=== PATIENT | female | born 1985 | race Caucasian/White ===

== ENCOUNTER 2023-06-19 10:32 | Emergency (ER) | payer OTHER, SELFPAY ==
[2023-06-19 10:42] VITALS: BP 144/115; PULSE 76; RESP 16; TEMP 36.5; O2SAT 96; BMI 24.0
--- NOTE | 2023-06-19 10:52 | ED.NAVMDI1 ---
HPI - Nausea/Vomiting/Diarrhea General Chief complaint: Nausea/Vomiting/Diarrhea Stated complaint: VOMITING FEVER Time Seen by Provider: 06/19/23 10:47 History of Present Illness HPI Narrative: 37-year-old female presents for nausea and vomiting. She's been sick for about nine days. She was seen at another hospital as ago. She continues to feel ill. She has an ongoing breast skin lesion that she's had for years and that's unchanged. She seen a cancer specialist about it and she doesn't have cancer. She doesn't believe it's related. Her is being seen for a Covid test. She states she is going to get fired from her job if she doesn't do something about this. Related Data Home Medications Medication Instructions Recorded Confirmed mupirocin calcium 2 % topical cream 1 applic topical TID 06/19/23 06/19/23 ondansetron 4 mg disintegrating 4 mg PO Q6H PRN nausea and vomiting 06/19/23 06/19/23 tablet silver sulfadiazine 1 % topical 1 applic topical DAILY 06/19/23 06/19/23 cream Previous Rx's Medication Instructions Recorded dicyclomine 10 mg capsule 10 mg PO QID PRN abdominal pain 06/19/23 #20 caps ondansetron HCl 4 mg tablet 4 mg PO Q6H PRN nausea and 06/19/23 vomiting #20 tabs Allergies Allergy/AdvReac Type Severity Reaction Status Date / Time amoxicillin Allergy Severe Hives Verified 06/19/23 10:57 ciprofloxacin Allergy Severe Hives Verified 06/19/23 10:57 doxycycline Allergy Severe Hives Verified 06/19/23 10:57 Penicillins Allergy Severe Anaphylaxis Verified 06/19/23 10:57 sulfamethoxazole Allergy Severe Hives Verified 06/19/23 10:57 [From Bactrim] tramadol Allergy Severe Hives Verified 06/19/23 10:57 trimethoprim [From Bactrim] Allergy Severe Hives Verified 06/19/23 10:57 meperidine [From Demerol] AdvReac Severe Seizure Verified 06/19/23 10:57 Review of Systems ROS Narrative A ten point review of systems is negative except as noted above. PFSH PFSH Social History Smoking status: Never smoker Exam Narrative Exam Narrative: Nurses note and vital signs reviewed and patient is not hypoxic. General: The patient appears well and in no apparent distress. Patient is resting comfortably on cart. Skin: Warm, dry, no pallor noted. There is no rash noted. Head: Normocephalic, atraumatic Eye: Normal conjunctiva, no drainage Ears, Nose, Mouth, and Throat: oral mucosa is moist. Nares patent. Cardiovascular: Regular Rate and Rhythm Respiratory: Patient is in no distress, no accessory muscle use, lungs are clear to auscultation, no wheezing, rales or rhonchi Back: non-tender GI: soft and nontender Musculoskeletal: The patient has no evidence of calf tenderness, no pitting edema, symmetrical pulses noted bilaterally Neurological: A&O, normal speech Psychiatric: Cooperative Constitutional Vital Signs, click to edit/add: Last Vital Signs Temp 97.7 F 06/19/23 10:42 Pulse 76 06/19/23 10:42 Resp 16 06/19/23 10:42 BP 143/96 H 06/19/23 12:10 Pulse Ox 96 06/19/23 10:42 O2 Del Method Room Air 06/19/23 10:42 Course Vital Signs Vital signs: Vital Signs Temperature 97.7 F 06/19/23 10:42 Pulse Rate 76 06/19/23 10:42 Respiratory Rate 16 06/19/23 10:42 Blood Pressure 144/115 H 06/19/23 10:42 Pulse Oximetry 96 06/19/23 10:42 Oxygen Delivery Method Room Air 06/19/23 10:42 Temperature 97.7 F 06/19/23 10:42 Pulse Rate 76 06/19/23 10:42 Respiratory Rate 16 06/19/23 10:42 Blood Pressure 143/96 H 06/19/23 12:10 Pulse Oximetry 96 06/19/23 10:42 Oxygen Delivery Method Room Air 06/19/23 10:42 MDM - Nausea/Vomiting/Diarrhea MDM Narrative Medical decision making narrative: blood work is normal and her Covid is negative. She was given IV fluids and is prescribed Bentyl and Zofran. She'll follow-up with her doctor if symptoms persist. Work note given as well. Treatment diagnosis and follow-up were discussed with the patient. Differential Diagnosis Differential diagnosis: Likely food poisoning, gastroenteritis, dehydration and other (viral illness) Lab Data Attestation: I reviewed the patient's lab results. Labs: Lab Results 06/19/23 06/19/23 Range/Units 11:07 11:09 WBC 8.1 (4.0-11.0) 10^3/uL RBC 4.60 (4.20-5.40) 10^6/uL Hgb 13.9 (12.0-16.0) g/dL Hct 40.5 (36.0-48.0) % MCV 88.0 (81.0-99.0) fL MCH 30.2 (26.7-34.0) pg MCHC 34.3 (29.9-35.2) g/dL RDW 12.3 (11.0-15.0) % Plt Count 395 (150-450) 10^3/uL MPV 9.0 L (9.5-13.5) fL Neut % (Auto) 77.3 H (43.0-75.0) % Lymph % (Auto) 15.0 L (20.5-60.0) % [place] % (Auto) 6.6 (1.7-12.0) % Eos % (Auto) 0.7 L (0.9-7.0) % Baso % (Auto) 0.2 (0.2-2.0) % Neut # (Auto) 6.3 (1.4-6.5) 10^3/uL Lymph # (Auto) 1.2 (1.2-3.8) 10^3/uL [place] # (Auto) 0.5 (0.3-0.8) 10^3/uL Eos # (Auto) 0.1 (0.0-0.7) 10^3/uL Baso # (Auto) 0.0 (0.0-0.1) 10^3/uL Abs Immat Gran (auto) 0.02 (0.00-0.03) 10^3/uL Imm/Tot Granulo (auto) 0.2 (0.0-0.5) % Sodium 133 L (136-145) mmol/L Potassium 3.2 L (3.5-5.1) mmol/L Chloride 97 L (98-107) mmol/L Carbon Dioxide 28.2 (21.0-32.0) mmol/L Anion Gap 11.0 BUN 9.0 (7.0-18.0) mg/dL Creatinine 0.74 (0.55-1.02) mg/dL Est GFR ( Amer) >60 (>=60) Est GFR (Non-Af Amer) >60 (>=60) BUN/Creatinine Ratio 12.2 Glucose 113 H (74-106) mg/dL Calcium 9.6 (8.5-10.1) mg/dL SARS-CoV-2 (PCR) Negative (NEGATIVE) Discharge Plan Discharge Chief Complaint: Nausea/Vomiting/Diarrhea Clinical Impression: Viral illness Patient Disposition: Home, Self-Care Time of Disposition Decision: 12:26 Condition: Good Mode of Transportation: Private Vehicle Prescriptions / Home Meds: New ondansetron HCl 4 mg tablet 4 mg PO Q6H PRN (Reason: nausea and vomiting) Qty: 20 0RF dicyclomine 10 mg capsule 10 mg PO QID PRN (Reason: abdominal pain) Qty: 20 0RF No Action mupirocin calcium 2 % cream 1 applic topical TID ondansetron 4 mg tablet,disintegrating 4 mg PO Q6H PRN (Reason: nausea and vomiting) silver sulfadiazine 1 % cream 1 applic topical DAILY Instructions: Viral Syndrome (ED) Stand Alone Forms: Portal Instructions Referrals: [facility] [Primary Care Provider] - 1 week
[2023-06-19] MEDS: 0.9 % SODIUM CHLORIDE 1,000 ML 1000 ML IV (11:16)
[2023-06-19] MEDS: ONDANSETRON PF 4 MG/2 ML VIAL IV (11:16)
[2023-06-19 11:17] LABS: Basophils Percent Auto 0.2 % (0.2-2.0); Eosinophils Absolute Auto 0.1 10^3/uL (0.0-0.7); Eosinophils Percent Auto 0.7 % (0.9-7.0); Hematocrit 40.5 % (36.0-48.0); Hemoglobin 13.9 g/dL (12.0-16.0); Immature Granulocytes Abs Auto 0.02 10^3/uL (0.00-0.03); Immature Granulocytes Pct Auto 0.2 % (0.0-0.5); Lymphocytes Absolute Auto 1.2 10^3/uL (1.2-3.8); Mean Corpuscular HGB Conc 34.3 g/dL (29.9-35.2); Mean Corpuscular Hemoglobin 30.2 pg (26.7-34.0); Monocytes Absolute Auto 0.5 10^3/uL (0.3-0.8); Monocytes Percent Auto 6.6 % (1.7-12.0); Neutrophils Absolute Auto 6.3 10^3/uL (1.4-6.5); Neutrophils Percent Auto 77.3 % (43.0-75.0); Platelet Count 395 10^3/uL (150-450); Red Cell Distribution Width 12.3 % (11.0-15.0); White Blood Count 8.1 10^3/uL (4.0-11.0)
[2023-06-19 11:27] LABS: BUN Creatinine Ratio 12.2; Calcium 9.6 mg/dL (8.5-10.1); Carbon Dioxide 28.2 mmol/L (21.0-32.0); Chloride 97 mmol/L (98-107); Estimated GFR (African America >60 (>=60); Estimated GFR (Non-African Ame >60 (>=60); Glucose 113 mg/dL (74-106); Potassium 3.2 mmol/L (3.5-5.1); Sodium 133 mmol/L (136-145)
[2023-06-19 11:28] LABS: SARS-CoV-2 Ag NEGATIVE (NEGATIVE)
[2023-06-19 12:10] VITALS: BP 143/96
[2023-06-19 16:05] LABS: SARS-CoV-2 NAA NOT DETECTED (NOT DETECTE)
== END 2023-06-19 12:37 | disposition home or self-care (01) ==
PROVIDERS: Emergency Provider Emergency Medicine
DX: B34.9 Viral infection, unspecified (principal); Z79.899 Other long term (current) drug therapy; Z20.822 Contact with and (suspected) exposure to COVID-19
CPT/HCPCS: 36415; 80048; 85025; 87635; 87811; 96361; 96374; 99284; U0003

== ENCOUNTER 2023-09-09 21:18 | Emergency (ER) | payer OTHER, SELFPAY ==
[2023-09-09 21:23] VITALS: BP 123/95; PULSE 55; RESP 18; TEMP 37.2; O2SAT 96
--- NOTE | 2023-09-09 21:32 | ED_ITS ---
HPI - Nausea/Vomiting/Diarrhea General Chief complaint: Nausea/Vomiting/Diarrhea Stated complaint: VOMITING Time Seen by Provider: 09/09/23 21:29 Source: patient Mode of arrival: walk-in Limitations: no limitations History of Present Illness HPI Narrative: presents complaining of recurrent vomiting for past 3 days. Occ diarrhea. Denies hematemesis. has abdominal pain when vomiting. Denies past abdominal surgery. Past tubal ligation. 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 states she has new lesions that are sore Related Data Allergies Allergy/AdvReac Type Severity Reaction Status Date / Time amoxicillin Allergy Severe Hives Verified 09/09/23 21:26 ciprofloxacin Allergy Severe Hives Verified 09/09/23 21:26 doxycycline Allergy Severe Hives Verified 09/09/23 21:26 Penicillins Allergy Severe Anaphylaxis Verified 09/09/23 21:26 sulfamethoxazole Allergy Severe Hives Verified 09/09/23 21:26 [From Bactrim] tramadol Allergy Severe Hives Verified 09/09/23 21:26 trimethoprim [From Bactrim] Allergy Severe Hives Verified 09/09/23 21:26 meperidine [From Demerol] AdvReac Severe Seizure Verified 09/09/23 21:26 Review of Systems ROS Status of ROS 10 or more systems reviewed and unremark able except as noted in history and below [facility] Social History Smoking status: Never smoker Exam Constitutional Vital Signs, click to edit/add: Last Vital Signs Temp 97.6 F 09/10/23 00:11 Pulse 65 09/10/23 00:11 Resp 16 09/10/23 00:11 BP 136/75 09/10/23 00:11 Pulse Ox 100 09/10/23 00:11 O2 Del Method Room Air 09/09/23 21:23 Common normals: no apparent distress, average body habitus, oriented x3, no limitations, healthy appearing, alert and well nourished Eye Common normals: EOMs intact bilaterally and conjunctivae normal Respiratory Common normals: normal respiratory effort, no retractions, no use of accessory muscles and clear to auscultation bilaterally Cardio Common normals: regular rate, regular rhythm, S1 normal heart sound and S2 normal heart sound GI Common normals: Normal to inspection, nondistended, normoactive bowel sounds present, soft to palpation and non-tender Other: pubic hair examined with nursing present. has 2 small superficial lesions that are firm and mildly tender. 1.5cm in size Extremity Common normals: normal to inspection and full ROM Neuro Common normals: oriented x3, CN's II-XII intact bilaterally, moves all extremities, no focal motor deficits and no sensory deficits noted Psych Appearance: grossly normal Course Vital Signs Vital signs: Vital Signs Temperature 99.0 F 09/09/23 21:23 Pulse Rate 55 L 09/09/23 21:23 Respiratory Rate 18 09/09/23 21:23 Blood Pressure 123/95 H 09/09/23 21:23 Pulse Oximetry 96 09/09/23 21:23 Oxygen Delivery Method Room Air 09/09/23 21:23 Temperature 97.6 F 09/10/23 00:11 Pulse Rate 65 09/10/23 00:11 Respiratory Rate 16 09/10/23 00:11 Blood Pressure 136/75 09/10/23 00:11 Pulse Oximetry 100 09/10/23 00:11 Oxygen Delivery Method Room Air 09/09/23 21:23 MDM - Nausea/Vomiting/Diarrhea MDM Narrative Medical decision making narrative: patient presents with gastroenteritis manifested mainly by recurrent vomiting and occ diarrhea. Also found to have mild folliculitis focal lesions of her pubic hair. UA with findings supporting dehydration. IV fluids administered along with zofran and nausea controlled. Patient had to leave suddenly because one of her kids at home became ill. She was discharged to follow up with her doctor Lab Data Labs: Lab Results 09/09/23 09/09/23 Range/Units 21:49 23:27 WBC 10.0 (4.0-11.0) 10^3/uL RBC 4.08 L (4.20-5.40) 10^6/uL Hgb 12.6 (12.0-16.0) g/dL Hct 37.3 (36.0-48.0) % MCV 91.4 (81.0-99.0) fL MCH 30.9 (26.7-34.0) pg MCHC 33.8 (29.9-35.2) g/dL RDW 12.4 (11.0-15.0) % Plt Count 325 (150-450) 10^3/uL MPV 9.4 L (9.5-13.5) fL Neut % (Auto) 80.1 H (43.0-75.0) % Lymph % (Auto) 11.6 L (20.5-60.0) % [place] % (Auto) 7.8 (1.7-12.0) % Eos % (Auto) 0.0 L (0.9-7.0) % Baso % (Auto) 0.2 (0.2-2.0) % Neut # (Auto) 8.0 H (1.4-6.5) 10^3/uL Lymph # (Auto) 1.2 (1.2-3.8) 10^3/uL [place] # (Auto) 0.8 (0.3-0.8) 10^3/uL Eos # (Auto) 0.0 (0.0-0.7) 10^3/uL Baso # (Auto) 0.0 (0.0-0.1) 10^3/uL Abs Immat Gran (auto) 0.03 (0.00-0.03) 10^3/uL Imm/Tot Granulo (auto) 0.3 (0.0-0.5) % Sodium 139 (136-145) mmol/L Potassium 3.5 (3.5-5.1) mmol/L Chloride 102 (98-107) mmol/L Carbon Dioxide 28.4 (21.0-32.0) mmol/L Anion Gap 12.1 BUN 13.0 (7.0-18.0) mg/dL Creatinine 0.80 (0.55-1.02) mg/dL Est GFR ( Amer) >60 (>=60) Est GFR (Non-Af Amer) >60 (>=60) BUN/Creatinine Ratio 16.2 Glucose 129 H (74-106) mg/dL Lactate 1.5 (0.4-2.0) mmol/L Calcium 9.5 (8.5-10.1) mg/dL Total Bilirubin 1.8 H (0.2-1.0) mg/dL AST 8 L (15-37) U/L ALT 17 (14-59) U/L Alkaline Phosphatase 75 (46-116) U/L Total Protein 8.4 H (6.4-8.2) g/dL Albumin 4.1 (3.4-5.0) g/dL Globulin 4.3 g/dL Albumin/Globulin Ratio 1.0 Urine Color Yellow (YELLOW) Urine Clarity Clear (CLEAR) Urine pH 6.0 (5.0-9.0) Ur Specific [place] >=1.030 A (1.005-1.025) Urine Protein 30 A (NEG/TRACE) mg/dL Urine Glucose (UA) Negative (NEGATIVE) mg/dL Urine Ketones 15 A (NEGATIVE) mg/dL Urine Occult Blood Negative (NEGATIVE) Urine Nitrite Negative (NEGATIVE) Urine Bilirubin Negative (NEGATIVE) Urine Urobilinogen 1.0 (0.2-1.0) EU/dL Ur Leukocyte Esterase Negative (NEGATIVE) Urine RBC 0-2 (0-2) #/HPF Urine WBC 2-5 A (NONE SEEN) #/HPF Ur Squamous Epith Cells Few A (NONE/RARE) #/LPF Urine Crystals None seen (None Seen) #/HPF Urine Bacteria Large A (NONE SEEN) #/HPF Urine Casts None seen (NONE SEEN) #/LPF Urine Mucus Large A (NONE SEEN) Ur Culture Indicated? Yes Discharge Plan Discharge Chief Complaint: Nausea/Vomiting/Diarrhea Clinical Impression: Folliculitis, Gastroenteritis Patient Disposition: Home, Self-Care Instructions: Gastroenteritis (DC), Folliculitis (ED) Stand Alone Forms: Portal Instructions Referrals: [facility] [Primary Care Provider] - 1 week Discharge Date/Time: 09/10/23 00:12
[2023-09-09] MEDS: 0.9 % SODIUM CHLORIDE 1,000 ML 999 ML IV ×2 (21:55→23:18)
[2023-09-09] MEDS: ONDANSETRON PF 4 MG/2 ML VIAL IV (21:55)
[2023-09-09 22:03] LABS: Basophils Percent Auto 0.2 % (0.2-2.0); Hematocrit 37.3 % (36.0-48.0); Hemoglobin 12.6 g/dL (12.0-16.0); Immature Granulocytes Abs Auto 0.03 10^3/uL (0.00-0.03); Immature Granulocytes Pct Auto 0.3 % (0.0-0.5); Lymphocytes Absolute Auto 1.2 10^3/uL (1.2-3.8); Lymphocytes Percent Auto 11.6 % (20.5-60.0); Mean Corpuscular HGB Conc 33.8 g/dL (29.9-35.2); Mean Corpuscular Hemoglobin 30.9 pg (26.7-34.0); Mean Corpuscular Volume 91.4 fL (81.0-99.0); Mean Platelet Volume 9.4 fL (9.5-13.5); Monocytes Absolute Auto 0.8 10^3/uL (0.3-0.8); Monocytes Percent Auto 7.8 % (1.7-12.0); Neutrophils Percent Auto 80.1 % (43.0-75.0); Platelet Count 325 10^3/uL (150-450); Red Blood Count 4.08 10^6/uL (4.20-5.40); Red Cell Distribution Width 12.4 % (11.0-15.0)
[2023-09-09 22:20] LABS: Lactate/Lactic Acid 1.5 mmol/L (0.4-2.0)
[2023-09-09 22:27] LABS: Alanine Aminotransferase 17 U/L (14-59); Albumin Level 4.1 g/dL (3.4-5.0); Alkaline Phosphatase 75 U/L (46-116); Anion Gap 12.1; Aspartate Amino Transferase 8 U/L (15-37); BUN Creatinine Ratio 16.2; Bilirubin Total 1.8 mg/dL (0.2-1.0); Calcium 9.5 mg/dL (8.5-10.1); Carbon Dioxide 28.4 mmol/L (21.0-32.0); Chloride 102 mmol/L (98-107); Estimated GFR (African America >60 (>=60); Estimated GFR (Non-African Ame >60 (>=60); Globulin 4.3 g/dL; Glucose 129 mg/dL (74-106); Potassium 3.5 mmol/L (3.5-5.1); Sodium 139 mmol/L (136-145); Total Protein 8.4 g/dL (6.4-8.2)
[2023-09-09 22:38] VITALS: PULSE 45; RESP 18; O2SAT 100
[2023-09-09 22:41] VITALS: BP 110/68
[2023-09-09 23:16] VITALS: PULSE 73; O2SAT 99
[2023-09-09 23:37] LABS: Bilirubin Urine NEGATIVE (NEGATIVE); Blood Urine NEGATIVE (NEGATIVE); Clarity Urine CLEAR (CLEAR); Color Urine YELLOW (YELLOW); Glucose Urine UA NEGATIVE (NEGATIVE); Ketones Urine 15 mg/dL (NEGATIVE); Leukocyte Esterase Urine NEGATIVE (NEGATIVE); Nitrite Urine NEGATIVE (NEGATIVE); Protein Urine 30 mg/dL (NEG/TRACE); Specific Gravity Urine >=1.030 (1.005-1.025)
[2023-09-09 23:38] LABS: Urine Microscopic Indicated YES
[2023-09-09 23:43] LABS: Bacteria Urine LARGE #/HPF (NONE SEEN); Cast Seen? NONE SEEN #/LPF (NONE SEEN); Crystals Seen? None Seen #/HPF (None Seen); Mucus Urine LARGE (NONE SEEN); RBC Urine 0-2 #/HPF (0-2); Squamous Epithelial Cell Urine FEW #/LPF (NONE/RARE); Urine Culture Indicated YES
[2023-09-09] MEDS: KETOROLAC TROMETHAMINE 30 MG/ML VIAL IVP (23:48)
[2023-09-10 00:11] VITALS: BP 136/75; PULSE 65; RESP 16; TEMP 36.4; O2SAT 100
== END 2023-09-10 00:12 | disposition home or self-care (01) ==
PROVIDERS: Emergency Provider Internal Medicine
DX: K52.9 Noninfective gastroenteritis and colitis, unspecified (principal); L73.9 Follicular disorder, unspecified
CPT/HCPCS: 36415; 80053; 81001; 83605; 85025; 87086; 87150; 87186; 96361; 96374; 96375; 99284

== ENCOUNTER 2023-09-24 21:32 | Emergency (ER) | payer OTHER, SELFPAY ==
[2023-09-24 21:35] VITALS: BP 143/87; PULSE 75; RESP 18; TEMP 36.8; O2SAT 95; BMI 25.8
--- OUTSIDE RECORDS SUMMARY | 2023-09-24 21:41 | XMS_ITS | CCD ---
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 Tab-Dis) 1 Tablets By Mouth every 8 hours as needed Nausea/Vomiting. Refills: 0. PATIENT EDUCATION INFORMATION: Instructions: Cellulitis, Adult Follow up: With: Address: When: Ashish Hawley In 3 days 06/30/2023 DIAGNOSIS: Cellulitis of breast; Ulcer of skin of breast Normal [facility] ED Note-Physicianon 06-27-20 ED Note-Physician Basic Information Time Seen: Kristie Saeed M.D. 06/27/2023 10:14 Chief Complaint Patients with infection to right breast. undectable bacertia and needs to go to ER . Drainage noted per patient. pt saw breast surg at last friday History of Present Illness 37-year-old female comes to the ED for evaluation of a breast wound. She states she had recurrent breast infection for years. She has been seen by multiple physicians. She states over the last few days she has had increased pain and drainage at the site concern for acute infection. No fever, chills, nausea, vomiting. Review of Systems A 10 point review of systems is negative except as noted above. Medical and Surgical History: Reviewed and noted Social history: Lives at home Tobacco: Denies Physical Exam Vitals & Measurements T: 36.4 ?C(Oral) HR: 63(Peripheral) RR: 16 BP: 123/80 SpO2: 98% HT: 162 cm WT: 77.5 kg BMI: 29.53 Nurses notes and vital signs reviewed and patient is not hypoxic. General: The patient appears well, resting comfortably. Skin: Warm, dry. Head: Atraumatic. Neck: No JVD. Eye: Normal conjunctiva. Ears, Nose, Mouth, and Throat: Moist mucous membranes. Cardiovascular: Strong distal pulses. Chest wall: Exam performed with female nurse, Chantal, at bedside. There is an ulcerated wound to the right of the nipple of the right breast. The nipple itself appears to be inverted as well which patient states is chronic. There is malodorous drainage without fluctuance or induration. No large area of erythema. Respiratory: Respirations are nonlabored. Back: Normal range of motion. Musculoskeletal: Normal ROM with no gross deformity. Gastrointestinal: Urological: Neurological: Awake and alert. No focal deficits. Follows commands. Psychiatric: Cooperative. Medical Decision Making The patient appears to have acute infection of chronic wound to the right breast. She states that she has been seen by multiple physicians, but from what I can gather she is poor with follow-up interaction. Explained to her that she needs to have this managed appropriately by 1 surgeon. She has seen local surgeon Dr. Hawley, in the past and is given his information for follow-up. Regarding the acute infection today she is placed on a course of clindamycin. Patient was encouraged to return to the ED if symptoms worsen or change. Assessment/Plan Cellulitis of breast (N61.0: Mastitis without abscess) Ulcer of skin of breast (L98.499: Non-pressure chronic ulcer of skin of other sites with unspecified severity) Orders: clindamycin, 300 mg = 2 cap(s), Oral, QID, X 10 day(s), # 80 cap(s), Refills(s) 0, Pharmacy: [id number], 162, cm, 06/27/23 10:15:00 EDT, Height/Length Dosing, 77.5, kg, 06/27/23 10:15:00 EDT, Weight Dosing Disposition Plan Patient Discharge Condition Disposition: Discharged home Condition: Improved and stable Counseled: Patient and/or family were counseled to workup, results, treatment plan and follow-up recommendations Discharge Prescription List Prescriptions clindamycin 150 mg Cap, 300 mg= 2 cap(s), Oral, QID Follow-up With When Contact Information Ashish Hawley In 3 days 06/30/2023 EDT Additional Instructions: Patient Education Cellulitis, Adult Attestation Patient seen and evaluated by the physician music assistant. Attending physician was present in the emergency department and supervised care. This visit was performed by both the physician and an APC. I performed all aspects of the MDM as documented. This report was transcribed using voice recognition software. Every effort was made to ensure accuracy, however, inadvertently computerized planned giving officer mistakes may be present. Appropriate healthcare PPE was used in evaluating this patient. The patient was placed in a mask. The healthcare provider was wearing mask, gloves, and utilizing proper hand hygiene. All equipment was properly cleansed. Problem List/Past Medical History Ongoing Allergic rhinitis Breast pain, right Chronic insomnia Depression epilepsy Former smoker Generalized anxiety disorder Grand mal seizure HSV Marijuana user Muscle spasm Nausea Obesity Historical Anxiety and depression Asthma Genital herpes simplex MS - Multiple sclerosis Procedure/Surgical History Tubal ligation (06/18/2016), gallbladder (01/2009), C Section. Medications Inpatient No active inpatient medications Home albuterol Bactroban 2% Cream, 1 adis, Topical, TID, 1 refills clindamycin 150 mg Cap, 300 mg= 2 cap(s), Oral, QID Keppra [place] 325 mg-5 mg oral tablet, 1 tab(s), Oral, q6hr, PRN Zofran ODT 4 mg Tab-Dis, 4 mg= 1 tab(s), Oral, q8hr, PRN Allergies Cipro (Nausea and vomiting) Bactrim (Vomit) Demerol HCl amoxicillin penicillin traMADol Social History Alcohol - Denies Alcohol Use, 05/01/2011 Current, 06/15/2020 DENIES, 05/01/2020 Substance Abuse - Denies Substance Abuse, 05/01/2011 Curr (more content not included)... Normal [facility] Comment on above: Result Comment: Elec tronically Signed By: Tyrese Thompson PA-C\.br\Date and Time Signed: 06/27/23 16:01 EDT\.br\Electronically Co-Signed By: Kristie Saeed M.D.\.br\Date and Time Co-Signed: 06/27/23 16:02 EDT ED Patient Education Noteon 06-27-2023 ED Patient Education Note Infectious Disease Cellulitis, Adult Cellulitis is a skin infection. The infected area is usually warm, red, swollen, and tender. This condition occurs most often in the arms and lower legs. The infection can travel to the muscles, blood, and underlying tissue and become serious. It is very important to get treated for this condition. What are the causes? Cellulitis is caused by bacteria. The bacteria enter through a break in the skin, such as a cut, burn, insect bite, open sore, or crack. What increases the risk? This condition is more likely to occur in people who: ? Have a weak body defense system (immune system). ? Have open wounds on the skin, such as cuts, hairston, bites, and scrapes. Bacteria can enter the body through these open wounds. ? Are older than 60 years of age. ? Have diabetes. ? Have a type of long-lasting (chronic) liver disease (cirrhosis) or kidney disease. ? Are obese. ? Have a skin condition such as: ? Itchy rash (eczema). ? Slow movement of blood in the veins (venous stasis). ? Fluid buildup below the skin (edema). ? Have had radiation therapy. ? Use IV drugs. What are the signs or symptoms? Symptoms of this condition include: ? Redness, streaking, or spotting on the skin. ? Swollen area of the skin. ? Tenderness or pain when an area of the skin is touched. ? Warm skin. ? A fever. ? Chills. ? Blisters. How is this diagnosed? This condition is diagnosed based on a medical history and physical exam. You may also have tests, including: ? Blood tests. ? Imaging tests. How is this treated? Treatment for this condition may include: ? Medicines, such as antibiotic medicines or medicines to treat allergies (antihistamines). ? Supportive care, such as rest and application of cold or warm cloths (compresses) to the skin. ? Hospital care, if the condition is severe. The infection usually starts to get better within 1?2 days of treatment. Follow these instructions at home: Medicines ? Take rkbk-hun-vxcnzbw and prescription medicines only as told by your health care provider. ? If you were prescribed an antibiotic medicine, take it as told by your health care provider. Do not stop taking the antibiotic even if you start to feel better. General instructions ? Drink enough fluid to keep your urine pale yellow. ? Do not touch or rub the infected area. ? Raise (elevate) the infected area above the level of your heart while you are sitting or lying down. ? Apply warm or cold compresses to the affected area as told by your health care provider. ? Keep all follow-up visits as told by your health care provider. This is important. These visits let your health care provider make sure a more serious infection is not developing. Contact a health care provider if: ? You have a fever. ? Your symptoms do not begin to improve within 1?2 days of starting treatment. ? Your bone or joint underneath the infected area becomes painful after the skin has healed. ? Your infection returns in the same area or another area. ? You notice a swollen bump in the infected area. ? You develop new symptoms. ? You have a general ill feeling (malaise) with muscle aches and pains. Get help right away if: ? Your symptoms get worse. ? You feel very sleepy. ? You develop vomiting or diarrhea that persists. ? You notice red streaks coming from the infected area. ? Your red area gets larger or turns dark in color. These symptoms may represent a serious problem that is an emergency. Do not wait to see if the symptoms will go away. Get medical help right away. Call your local emergency services (911 in the [place] Do not drive yourself to the hospital. Summary ? Cellulitis is a skin infection. This condition occurs most often in the arms and lower legs. ? Treatment for this condition may include medicines, such as antibiotic medicines or antihistamines. ? Take gkve-fft-zbteoin and prescription medicines only as told by your health care provider. If you were prescribed an antibiotic medicine, do not stop taking the antibiotic even if you start to feel better. ? Contact a health care provider if your symptoms do not begin to improve within 1?2 days of starting treatment or your symptoms get worse. ? Keep all follow-up visits as told by your health care provider. This is important. These visits let your health care provider make sure that a more serious infection is not developing. This information is not intended to replace advice given to you by your health care provider. Make sure you discuss any questions you have with your health care provider. Document Revised: 06/27/2022 Document Reviewed: 06/27/2022 [employer] Patient Education ? 2022 [employer] [facility] ED Patient Summaryon 023 ED Patient Summary (Inserted Image. Adali ble to display) [place] [id number] Patient Discharge Instructions Person Information Name: GUS MAIER Age: 37 Years Arrival Date: 06/27/2023 09:51:54 Discharge Diagnosis: Cellulitis of breast; Ulcer of skin of breast Primary Care Physician: NONE, XXXX Provider Information Primary Provider: Kristie Saeed M.D. Advanced Lead Cargoman:Tyrese Thopmson PA-C The exam and treatment you received in the Emergency Department were for an urgent problem and are not intended as complete care. It is important that you follow up with a doctor, nurse practitioner, or physician?s music assistant for ongoing care. If your symptoms become worse or you do not improve as expected and you are unable to reach your usual health care provider, you should return to the Emergency Department. We are available 24 hours a day. GUS MAIER has been given the following list of patient education materials, prescriptions and follow-up instructions: Follow-up Instructions: With: Address: When: Ashihs Hawley In 3 days 06/30/2023 In the event that this physician does not participate in your insurance network, please consult with your insurance company to find a nearby participating provider. Patient Education Materials: Cellulitis, Adult A MESSAGE TO ALL PATIENTS REGARDING OPIOIDS PRESCRIPTION OPIOIDS: WHAT YOU NEED TO KNOW Prescription opioids can be used to help relieve amixcfek-jh-qccrhq pain and are often prescribed following a surgery or injury, or for certain health conditions. These medications can be an important part of the treatment but also come with serious risks. It is important to work with your healthcare provider to make sure you are getting the safest, most effective care. WHAT ARE THE RISKS AND SIDE EFFECTS OF OPIOID USE? Prescription opioids carry serious risks of addiction and overdose, especially with prolonged use. An opioid overdose, often marked by slowed breathing, can cause sudden . The use of prescription opioids can have a number of side effects as well, even when taken as directed: ? Tolerance?meaning you might need to take more of the medication for the same pain relief ? Physical dependence?meaning you have symptoms of withdrawal when a medication is stopped ? Increased sensitivity to pain ? Constipation ? Nausea, vomiting, and dry mouth ? Sleepiness and dizziness ? Confusion ? Depression ? Low levels of testosterone that can result in lower sex drive, energy, and strength ? Itching and sweating RISKS ARE GREATER WITH: ? History of drug misuse, substance use disorder, or overdose ? Mental health conditions (such as depression or anxiety) ? Sleep apnea ? Older age (65 years and older) ? Avoid alcohol while taking prescription opioids. Also, unless specifically advised by your health care provider, medications to avoid include: ? Benzodiazepines (such as Xanax or Valium) ? Muscle relaxants (such as Soma or Flexeril) ? Hypnotics (such as Ambien or Lunesta) ? Other prescription opioids KNOW YOUR OPTIONS Talk to your health care provider about ways to manage your pain that don?t involve prescription opioids. Some of these options may actually work better and have fewer risks and side effects. Options may include: ? Pain relievers such as acetaminophen, ibuprofen, and naproxen ? Some medication that are also used for depression or seizures ? Physical therapy and exercise ? Cognitive behavioral therapy, a psychological, goal-directed approach, in which patients learn how to modify physical, behavioral, and emotional triggers of pain and stress. IF YOU ARE PRESCRIBED OPIOIDS FOR PAIN: ? Never take opioids in greater amounts or more often than prescribed. ? Follow up with your primary health care provider. o Work together to create a plan on how to manage your pain. o Talk about ways to help manage your pain that don?t involve prescription opioids. o Talk about any and all concerns and side effects. ? Help prevent misuse and abuse o Never sell or share prescription opioids. o Never use another person?s prescription opioids. ? Store prescription opioids in a secure place and out of reach of others (this may include visitors, children, friends, and family). ? Safely dispose of unused prescription opioids: Find your community drug take-back program or your pharmacy mail-back program, or flush them down the toilet, following guidance from the Food and Drug Administration (www.fda.gov/Drugs/Resource sForYou). ? Visit www.cdc.gov/drugoverdose to learn about the risks of opioids abuse and overdose. ? If you believe you may be struggling with addiction, tell your health complex care nurse practitioner and ask for guidance or call SAMHSA?S National Helpline at 9-060-011-HELP. v Source: [place] Department of Health and Human Services/Center for D (more content not included)... Normal [facility] Prescriptions/Work Noteson 0 06-27-2023 Prescriptions/Work Notes [id number] Normal [facility] Cult, Misc + smearon 06-18-2 023 Bacteria identified Cx Nom (Unsp spec) Abnormal MP- [facility]Silvano yusuf Work Phone: ED Note-Physicianon 06-16-20 23 ED Note-Physician Basic Information Time Seen: Magui Tompkins PA-C 06/10/2023 13:39 Chief Complaint Lesion on RT breast that has been there for 3 years. History of Present Illness This patient presents to the emergency department chief complaint of ongoing right breast pain, drainage, swelling, discomfort. The patient states she has been battling with this for 3 years now. She states she has been seen by a breast doctor at the [facility] and they told her they cannot help her. The patient is very frustrated because she does not know what to do. The patient denies any fevers chills or sweats. She denies any nausea or vomiting. She denies any urinary or bowel complaints. She denies any chest pain or shortness of breath. The patient does smoke cigarettes. She does not drink alcohol, does not use any street drugs. There is family history of breast cancer. Review of Systems Constitutional: Denies weight loss, fevers, chills, sweats, malaise Eyes: Denies visual changes, eye pain, double vision, scotomas, floaters ENT: Denies runny nose, epistaxis, sinus pain, ear pain, ringing in ears, tooth ache, sore throat, pain with swallowing Cardiovascular: Denies chest pain, shortness of breath, orthopnea, edema, palpitations, loss of consciousness, claudication. + R breast pain, swelling, redness, drainage Respiratory: Denies cough, sputum production, wheezing, hemoptysis, shortness of breath, dyspnea on exertion Gastrointestinal: Denies abdominal pain, unintentional weight loss, difficulty swallowing, indigestion, bloating, cramping, loss of appetite, nausea, vomiting, diarrhea, constipation, hematochezia, melena Genitourinary: Denies any incontinence of urine, dysuria, hematuria, nocturia, polyuria, hesitancy, frequency, urgency, burning Musculoskeletal: Denies joint pain, morning stiffness, joint swelling, decreased range of motion, crepitus Integumentary: Denies any pruritus, rashes, lesions, wounds, petechiae Neurologic: Denies any changes in sight, smell, hearing, taste, seizures, headache, paresthesia, numbness, weakness, balance disturbance Psychiatric denies any depression, change in sleep patterns, anxiety, difficulty concentrating, paranoia, anhedonia, lack of energy, layne Hematologic/lymphatic: Denies any purpura, petechiae, excessive bleeding, bruising Physical Exam Vitals & Measurements T: 36.8 ?C(Oral) HR: 79(Peripheral) RR: 18 BP: 124/68 SpO2: 98% HT: 162.56 cm WT: 68.5 kg BMI: 25.92 Vital signs and nursing notes reviewed. General: Awake, alert, NAD. HEENT: Head is normocephalic, atraumatic. PERRL. EOMI. Sclerae are anicteric. External ears are normal. TMs are intact bilaterally. Canals are clear bilaterally. Nares are patent bilaterally. Oral mucosa is pink and moist. No lesions noted. Tongue protrudes in midline. Uvula rises with phonation. Neck is supple, no no palpable adenopathy. No JVD. Trachea is midline. Thorax: Symmetrical rise and fall. R breast has some mild induration with inversion of the nipple, there is some mild purulent drainage. There is no appreciated palpable mass. There are 2 separate areas of excoriated lesions. There is no axillary adenopathy. Lungs: Clear to auscultation throughout all soto, no wheezes, no crackles Heart: Regular rate and rhythm. No murmur, gallop, or rub Abdomen: No tenderness on palpation. Bowel sounds are present active and normal. No organomegaly. No palpable masses. No CVA tenderness. Extremities: Motor sensory pulses intact x4 extremities. No lower extremity edema. Skin: No lesions, rashes, ulcerations. No bruising or petechiae. Color appropriate, warm and dry Neuro: No oriented x3, no focal neuro deficits Psych: Mood and affect are normal Medical Decision Making MEDICAL DECISION MAKING Number and Complexity of Problems Differential Diagnosis: Breast abscess, breast infection, malignancy, connective tissue disorder MDM Data External documents reviewed: prior PMD notes (Dr Ramírez) My EKG interpretation: Noted in chart if applicable My CT interpretation: Noted in chart if applicable My X-ray interpretation: Noted in chart if applicable My Ultrasound interpretation: Not applicable Decision rules/scores evaluated: Noted in chart if applicable Discussed with: Not applicable Treatment and Disposition ED Course: This patient was interviewed and examined. I discussed with the patient given her drainage currently, she does require antibiotic therapy. I had extensive discussion with the patient regarding long-term care and definitive treatment. I discussed with her that she needs to be closely followed at a tertiary [facility] center for definitive treatment. The patient states that she has been dissatisfied with the treatment through the [facility]. I discussed with her getting [facility] The patient was in agreement with this. I did give the patient information for both of these facilities in their br (more content not included)... Normal [facility] Comment on above: Result Comment: Elec tronically Signed By: Magui Tompkins PA-C\.br\Date and Time Signed: 06/10/23 20:01 EDT\.br\Electronically Co-Signed By: Ashish Cruz DO\.br\Date and Time Co-Signed: 06/16/23 06:57 EDT ED Note-Physicianon 06-14-20 ED Note-Physician Basic Information Time Seen: Jose Elizondo PA-C 06/13/2023 18:06 Chief Complaint pt reports to ed for reeval of her right breast lesions which pain is increasing in. pt states she started with cp and vomiting at this morning. History of Present Illness A 37-year-old female reports to the emergency department with a chief complaint of right breast lesions. Reports that she is having increasing pain and. Reports that she was seen here couple days ago, but has not been taking anything for pain. Reports pain is worsening. Reports is causing some minor chest pain as well as vomiting. She states that she has no fevers chills nausea or vomiting. Reports that no one will help her. Reports that she has tried to call places, but needs a referral. States that she does not know what to do at this time. Review of Systems A 10 point review of systems is negative except as noted above. Medical and Surgical History: Reviewed and noted Social history: Lives at home Family History: Reviewed. Tobacco: Denies, former Physical Exam Vitals & Measurements T: 36.6 ?C(Oral) HR: 51(Peripheral) RR: 20 BP: 132/76 SpO2: 97% HT: 162 cm WT: 6.5 kg BMI: 2.48 General: The patient appears well and in no apparent distress. Patient is resting comfortably in chair. Afebrile Skin: Warm, dry, no pallor noted.. Breast exam was performed with nurse Chantal as my senior health educator. The right breast has area of small cyst irregular SHAPED lesions, that do have some drainage. Inverted right nipple of the breast. Tenderness to palpation throughout this. No surrounding erythema. Head: Normocephalic, atraumatic Neck: No JVD Eye: PERRLA, EOMI ENT: Moist mucus membranes Cardiovascular: Regular rate normal peripheral perfusion. Radial pulses +2 bilaterally Respiratory: No respiratory distress no accessory muscle use no obvious audible wheezing. Lung sounds clear to auscultation Chest Wall: no deformity Musculoskeletal: normal ROM, no deformity, no swelling GI: No obvious distention soft nontender nondistended no guarding rebounding or rigidity Neurological: A&O moves all extremities equal strength and symmetry Psychiatric: Cooperative and appropriate Medical Decision Making MEDICAL DECISION MAKING Number and Complexity of Problems Differential Diagnosis: [] [facility] Data External documents reviewed: [] My EKG interpretation: Reviewed My CT interpretation: [] My X-ray interpretation: Reviewed My Ultrasound interpretation: [] Decision rules/scores evaluated: [] Discussed with: [] Treatment and Disposition ED Course: 37-year-old female reports emerged department with chief complaint of worsening pain of her right breast. Reports causing chest pain/breast pain, as well as vomiting. States that she normal help her. On physical exam the patient, which were performed with a senior health educator, I did see these lesions on her breast, which appears to be infected. There is also some masses felt underneath, with tenderness noted. There is drainage noted as well as as well as the inverted nipple. She has been seen by multiple surgeons, and states that the will help her. I did review the previous ER note, which she was given resources, but stated that she needed review of the referral. I discussed that from our standpoint there is really nothing we can do from a breast standpoint, as she has already seen Dr. Hawley. I discussed that she needs to see a breast specialist. Patient was understanding. Due to her complaints today though, we did do a cardiac work-up. Lab work reviewed and noted. No acute changes seen. No signs of systemic infection. She did feel better after morphine and Zofran was given. Patient will be discharged home with Percocet for breakthrough pain. Patient was grateful. I discussed ultimately she needs to follow-up with PCP, who then can do a referral for a breast specialist. Shared decision making: [] Code status: [] Assessment/Plan Breast pain (N64.4: Mastodynia) Cellulitis of right breast (N61.0: Mastitis without abscess) Orders: acetaminophen-oxycodone, 1 EA, Tab, Oral, Once, Stop date 06/13/23 20:25:00 EDT, STAT, Start date 06/13/23 20:25:00 EDT acetaminophen-oxycodone, 1 tab(s), Oral, q6hr for pain for 3 day(s), 15 tab(s), Refill(s) 0, [facility]/pharmacy #[id number], 162, cm, 06/13/23 17:51:00 EDT, Height/Length Dosing, 6.5, kg, 06/13/23 17:51:00 EDT, Weight Dosing morphine, 4 mg = 2 mL, Injection, IV Push, Once, Stop date 06/13/23 18:50:00 EDT, STAT, Start date 06/13/23 18:50:00 EDT, 06/13/23 18:50:00 EDT ondansetron, 4 mg = 2 mL, Injection, IV Push, Once, Stop date 06/13/23 18:50:00 EDT, STAT, Start date 06/13/23 18:50:00 EDT, 06/13/23 18:50:00 EDT ondansetron, 12 mg = 3 tab(s), Tab-Dis, Oral, Once, Stop date 06/13/23 20:25:00 EDT, STAT, Start date 06/13/23 20:25:00 EDT, 06/13/23 20:25:00 EDT ondansetron, 4 mg = 1 tab(s), Oral, q8hr, PRN Nausea/Vomiting, # 12 tab(s), Refills(s) 0, Pharmacy: [facility]/pharmacy #[id number], 162, cm, 06/13/23 17:51: (more content not included)... Normal [facility] Comment on above: Result Comment: Elec tronically Signed By: Jose Elizondo PA-C\.br\Date and Time Signed: 06/13/23 23:37 EDT\.br\Electronically Co-Signed By: Cooper Juarez DO\.br\Date and Time Co-Signed: 06/14/23 01:23 EDT Auto Diffon 06-13-2023 Basophils/100 WBC (Bld) 0.4 % Normal 0.0-2.0 [facility] Comment on above: Order Comment: Order Added by Discern Expert. Performed By: #### 2 477054, 1983418, 0225764, 20031482, 11711292, 4455402, 35775748 ####[facility] [address] [place] [address] Basophils/Leukocytes Auto (Bld) [Pure # fraction] 0.0 E9/L Normal 0.0-0.2 [facility] Comment on above: Order Comment: Order Added by Discern Expert. Performed By: #### 2 569099, 1504313, 7642753, 63049660, 68788136, 0823277, 88922606 ####[facility] [address] [place] [address] Eosinophils/100 WBC (Bld) 1.5 % Normal 0.0-8.0 [facility] Comment on above: Order Comment: Order Added by Discern Expert. Performed By: #### 2 877739, 8557240, 0585878, 41394740, 48250991, 0141206, 44061670 ####[facility] [address] [place] [address] Eosinophils/Leukocytes Auto (Bld) [Pure # fraction] 0.1 E9/L Normal 0.0-0.5 [facility] Comment on above: Order Comment: Order Added by Discern Expert. Performed By: #### 2 742742, 8004372, 7249922, 45703443, 45025283, 1355732, 00886386 ####[address] [address] Lymphocytes/100 WBC (Bld) 15.5 % Normal 14.0-50.0 [facility] Comment on above: Order Comment: Order Added by Discern Expert. Performed By: #### 2 740896, 4369429, 5130442, 52898126, 03980322, 3932431, 37006538 ####[address] [address] Lymphocytes/Leukocytes Auto (Bld) [Pure # fraction] 1.5 E9/L Normal 1.0-4.0 [facility] Comment on above: Order Comment: Order Added by Preston Expert. Performed By: #### 2 957491, 3496254, 9204109, 73164573, 55309171, 8419659, 22484025 ####[address] [address] Monocytes/100 WBC (Bld) 4.6 % Normal 4.0-14.0 [facility] Comment on above: Order Comment: Order Added by Discern Expert. Performed By: #### 2 333147, 5152520, 9596093, 60477594, 47871058, 8308634, 28242187 ####[address] [place] [address] Monocytes/Leukocytes Auto (Bld) [Pure # fraction] 0.5 E9/L Normal 0.2-1.0 [facility] Comment on above: Order Comment: Order Added by Preston Expert. Performed By: #### 2 304382, 6113818, 1796394, 20765008, 33773913, 7828564, 39635283 ####[address] [place] [address] Neutrophils/100 WBC (Bld) 78.0 % High 36.0-75.0 [facility] Comment on above: Order Comment: Order Added by Discern Expert. Performed By: #### 2 786485, 3618909, 0703837, 53172440, 16383550, 4494923, 87875799 ####[facility] [address] [place] [address] Neutrophils/Leukocytes Auto (Bld) [Pure # fraction] 7.7 E9/L High 2.0-7.5 [facility] Comment on above: Order Comment: Order Added by Discern Expert. Performed By: #### 2 783875, 2683097, 3760649, 15439267, 84221131, 8140064, 09298552 ####[facility] [address] [place] [address] BMPon 06-13-2023 Creatinine [Mass/Vol] 0.6 mg/dL Normal 0.5-1.3 [facility] Comment on above: Performed By: #### 2 893788, 8080909, 7586924, 12760073, 30519908, 3909311, 32361183 ####[facility] [address] [place] [address] Urea nitrogen [Mass/Vol] 8 mg/dL Normal 5-21 [facility] Comment on above: Performed By: #### 2 239782, 8905955, 6478841, 48136173, 29953524, 4441887, 15743112 ####[facility] [address] [place] [address] Urea nitrogen/Creatinine [Mass ratio] 13 No Units Normal 10-20 [facility] Comment on above: Performed By: #### 2 859648, 4479780, 6903411, 07196479, 28708928, 9765006, 02766474 ####[facility] [address] [place] [address] Anion gap [Moles/Vol] 12 mmol/L Normal 6-16 [facility] Comment on above: Performed By: #### 2 592500, 1436861, 3303203, 73894210, 87803508, 5684034, 26757789 ####[facility] [address] [place] [address] Calcium [Mass/Vol] 9.4 mg/dL Normal 8.9-11.1 [facility] Comment on above: Performed By: #### 2 844488, 8668966, 4665968, 51091468, 25436454, 0120455, 47308656 ####[facility] [address] [place] [address] Chloride [Moles/Vol] 105 mmol/L Normal 101-111 [facility] Comment on above: Performed By: #### 2 433112, 6515340, 5533429, 94132766, 35027428, 7993503, 59740558 ####[facility] [address] [place] [address] CO2 [Moles/Vol] 24 mmol/L Normal 21-31 [facility] Comment on above: Performed By: #### 2 247005, 7883280, 1478420, 26051562, 21465571, 1343433, 98043510 ####[facility] [address] [facility] [place] [address] Glucose [Mass/Vol] 117 mg/dL Normal 55-199 [facility] Comment on above: Result Comment: If t his glucose result represents a fasting glucose, interpretation should refer to the following reference range: 55-99 mg/dL Performed By: #### 2 395614, 9037757, 6828337, 32899665, 79653449, 0784992, 72946362 ####[facility] [address] [facility] [place] [address] Potassium [Moles/Vol] 3.5 mmol/L Normal 3.5-5.3 [facility] Comment on above: Performed By: #### 2 349226, 4391861, 9280792, 34765102, 95783264, 2052110, 81195352 ####[facility] [address] [place] [address] Sodium [Moles/Vol] 137 mmol/L Normal 135-145 [facility] Comment on above: Performed By: #### 2 359475, 2006477, 0701157, 83142207, 61427830, 5161392, 50150304 ####[address] [place] [address] CBC w/ Auto Diffon 3 Erythrocyte distribution width (RBC) [Ratio] 13.3 % Normal 10.9-14.2 [facility] Comment on above: Performed By: #### 2 322471, 8235290, 8274719, 30885947, 17566633, 9977604, 21745065 ####[address] [place] [address] Hematocrit (Bld) [Volume fraction] 40.3 % Normal 34.0-46.0 [facility] Comment on above: Performed By: #### 2 413249, 5127922, 7890767, 42726753, 91710670, 0937068, 07152462 ####[address] [address] Hemoglobin (Bld) [Mass/Vol] 14.0 g/dL Normal 12.0-16.0 [facility] Comment on above: Performed By: #### 2 576478, 0693516, 8447234, 00801138, 24628795, 7389283, 24048396 ####[facility] [address] [place] [address] MCH (RBC) [Entitic mass] 30.2 pg Normal 27.0-34.0 [facility] Comment on above: Performed By: #### 2 468623, 4538295, 6395704, 62050958, 74677241, 5736490, 21130409 ####[address] [address] MCHC (RBC) [Mass/Vol] 34.7 g/dL Normal 31.4-36.0 [facility] Comment on above: Performed By: #### 2 325334, 7310151, 6586431, 10021136, 56806678, 2946483, 58893694 ####[facility] [address] [place] [address] MCV (RBC) [Entitic vol] 86.9 fL Normal 80.0-100.0 [facility] Comment on above: Performed By: #### 2 695128, 3384073, 3809151, 79853555, 92819565, 9004135, 68415529 ####[address] [address] Platelet mean volume (Bld) [Entitic vol] 6.6 fL Normal 6.4-10.8 [facility] Comment on above: Performed By: #### 2 955384, 7447211, 3324068, 14756989, 02215876, 7640310, 27911876 ####[address] [address] Platelets (Bld) [#/Vol] 416.0 E9/L Normal 150.0-500. 0 [facility] Comment on above: Performed By: #### 2 645007, 5207294, 4160811, 07441753, 27268095, 2317128, 30457319 ####[address] RBC (Bld) [#/Vol] 4.6 E12/L Normal 4.3-5.9 [facility] Comment on above: Performed By: #### 2 202509, 1165482, 1293453, 50288204, 84200142, 9498153, 34916026 ####[address] [address] WBC corrected for nucl RBC Auto (Bld) [#/Vol] 9.8 E9/L Normal 4.0-11.0 [facility] Comment on above: Performed By: #### 2 734009, 5135994, 4679010, 53358796, 72497369, 5681726, 78422957 ####[facility] [address] [place] [address] CHEMISTRYOrdered By: SYSTEM SYSTEM on 06-13-2023 Anion gap [Moles/Vol] 12 mmol/L Normal 6 - 16 mEq/L [facility] Calcium [Mass/Vol] 9.4 mg/dL Normal 8.9 - 11. 1 mg/dL [facility] Chloride [Moles/Vol] 105 mmol/L Normal 101 - 1 11 mmol/L [facility] CO2 [Moles/Vol] 24 mmol/L Normal 21 - 31 mmol/L [facility] Creatinine [Mass/Vol] 0.6 mg/dL Normal 0.5 - 1.3 mg/dL [facility] GFR/1.73 sq M.predicted among non-blacks MDRD (S/P/Bld) [Vol rate/Area] 119 mL/min/1.73 m2 Normal >=59mL/min /1.73 m2 FT Chem S Glucose [Mass/Vol] 117 mg/dL Normal 55 - 199 mg/dL [facility] Lactate [Mass/Vol] 1.2 mmol/L Normal 0.5 - 2.2 mmol/L [facility] Potassium [Moles/Vol] 3.5 mmol/L Normal 3.5 - 5.3 mmol/L [facility] Sodium [Moles/Vol] 137 mmol/L Normal 135 - 145 mmol/L [facility] Troponin I.cardiac [Mass/Vol] 2.70 pg/mL Low 10.10 - 27.10 pg/mL [facility] Urea nitrogen [Mass/Vol] 8 mg/dL Normal 5 - 21 mg/dL [facility] Urea nitrogen/Creatinine [Mass ratio] 13 mg/mg Normal 10 - 20 [facility] CNPNon 06-13-2023 ZHOU Telephone (HEMTSA) MAIERSHANTEKAYKAY Hobson ([id number]) 1985 F Date Time Provider Department 06/13/23 AZRA HOLLEY During your visit today, we recorded the following information about you: Azra Holley RN 06/13/2023 12:23 PM Signed Patient has left to notify that she was seen in the ED yesterday with a bleeding breast that is still bleeding today, notes that she has been seen here on and off was told @ED her breast needs to be removed . She is requesting a referral. NICKI Lawton Felicia, RN 06/13/2023 12:23 PM Signed Patient call back. She states that it has been over a year since she has seen Dr Porras notes whenever I have an appointment I am sick noting she has had to cancel in the past. She says that she has bleeding lesions around her nipple she was seen @ED 06/11 and was ordered antibiotics. States they don't work when asked if she is taking them she says yea but can not recall the name of the antibiotic, notes she was ordered topical and oral. She currently has serous/purulent drainage to the Rt breast/changing band aid hourly, is concerned with losing her job, and would like to be seen here for the infection with possible surgical options as the ED told her the breast needs removed states she has a PCP notes they do nothing she was made aware that we do not manage ID or surgical here, diagnostics thus far are benign, and I will forward for recommendations. Azra Holley RN All past appointments back to 2020 were either no show or cancelled Gloria Babcock APRN.TING 06/13/2023 2:06 PM Signed Please get her scheduled with Dr. Porras. Try for a longer appointment. Thanks, Gloria Babcock APRN.Azra Stafford, NICKI 06/13/2023 2:43 PM Signed Called patient and updated her that mid level was aware. She is agreeable to a follow up appt scheduled next week. The only day she can come in is Friday due to her work schedule. Reinforced the need to continue to take ATBX daily as prescribed and she has verbalized understanding Emergent S/S reviewed Forwarded to clerical pool to schedule NICKI Lawton Jodi 06/13/2023 3:09 PM Signed Taty, could you help me with this one for a time? Thank you Evette José 06/16/2023 8:15 AM Signed Called and scheduled patient, Jun 19 at 11:15. Due to patients work schedule this will work good for her. Allergies As of Date: 06/13/2023 Noted Allergy Reaction CIPROFLOXACIN 10/24/2022 8 - GI Upset AMOXICILLIN 02/13/2021 12 - Shortness of Breath Comments: Shortness of breath DEMEROL (MEPERIDINE (PF)) 06/18/2017 14 - Other: See Comments Comments: seizures DOXYCYCLINE 10/24/2022 16 - Unknown KETOROLAC TROMETHAMINE 10/07/2017 16 - Unknown PENICILLIN 10/05/2016 4 - Hives 10 - Anaphylaxis SULFAMETHOXAZOLE-TRIMETHOPR IM 02/12/2021 14 - Other: See Comments TRAMADOL 10/05/2016 4 - Hives 10 - Anaphylaxis Comments: Pt denies any allergy or adverse reactions to Percocet. 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 - zylhjhy-rctzxzhn-sak-silico ne 2-4-2 % kit 1 application - gabapentin (NEURONTIN) 300 mg capsule Take 1 capsule by mouth twice daily for 90 days. Problem List As Of Date: 06/13/2023 (None) Encounter Status:Closed by AZRA HOLLEY on 06/17/23 Normal [facility] COAGULATIONOrdered By: Wally maki Diazt on 06-13-2023 aPTT Coag (PPP) [Time] 33.9 s Normal 25.1 - 36.5 second(s) [facility] Auto Coag INR Coag (PPP) [Relative time] 1.1 {INR} Invalid Interpretation Code [facility] Auto Coag PT Coag (PPP) [Time] 12.2 s Normal 9.4 - 1 2.5 second(s) [facility] Auto Coag Consent for Treatmenton 05-30 Consent for Treatment [id number]:127 Normal [facility] Discharge Instructionson Discharge Instructions [id number]:127 Normal [facility] ED Clinical Summaryon 2022 ED Clinical Summary (Inserted Image. Adali ble to display) [place] [id number] ED Clinical Summary Person Information Name: GUS MAIER Malia/[facility] Age: 37 Years : 1985 Sex: Female Language: Ugandan PCP: NONE, XXXX Marital Status: Phone: [phone] Visit Id: Visit Reason: Vomiting; Chest pain; Breast problem; CHEST PAIN, VOMITING Speciality: Acuity: 3 Enc Type: Emergency Med Service: Emergency Arrival: 06/13/2023 17:37:06 Discharge: 06/13/2023 21:11:10 LOS: 000 03:34 Checkin: 06/13/2023 17:37:06 Checkout: 06/13/2023 21:11:10 Dispo Type: Home (Routine DC) EVENTS: Event Name Event Status Request Date/Time Start Date/Time Complete Date/Time Arrive Complete 06/13/2023 17:37:06 06/13/2023 17:37:06 06/13/2023 17:37:06 Document Home Meds Request 06/13/2023 17:37:06 Triage Complete 06/13/2023 17:37:06 06/13/2023 17:51:04 06/13/2023 17:51:04 EKG Complete 06/13/2023 17:41:15 06/13/2023 17:48:16 Registration Complete 06/13/2023 17:47:43 06/13/2023 17:47:43 06/13/2023 17:47:43 Reg Complete Request 06/13/2023 17:47:43 Reg Bed Request Complete 06/13/2023 17:47:43 06/13/2023 17:47:43 06/13/2023 17:47:43 Bed Assign Complete 06/13/2023 17:56:56 06/13/2023 17:56:56 06/13/2023 17:56:56 Dr Exam Complete 06/13/2023 17:56:56 06/13/2023 18:06:30 06/13/2023 18:06:30 RN Exam Complete 06/13/2023 17:56:56 06/13/2023 18:27:55 06/13/2023 18:27:55 Registration Complete 06/13/2023 18:06:30 06/13/2023 18:52:38 06/13/2023 18:56:39 Dr Exam Complete 06/13/2023 18:40:28 06/13/2023 18:40:28 06/13/2023 18:40:28 Pending Labs Request 06/13/2023 18:50:40 Lab Inlab 06/13/2023 18:50:40 X-Ray Complete 06/13/2023 18:50:40 06/13/2023 18:58:49 06/13/2023 19:28:14 Meds Admin Complete 06/13/2023 18:50:40 06/13/2023 19:06:56 Pending Labs Complete 06/13/2023 19:10:34 06/13/2023 19:10:34 06/13/2023 19:26:24 Lab Complete 06/13/2023 19:10:34 06/13/2023 19:10:34 06/13/2023 19:26:24 Pending Labs Complete 06/13/2023 19:14:01 06/13/2023 19:14:01 06/13/2023 19:14:08 Lab Complete 06/13/2023 19:14:01 06/13/2023 19:14:01 06/13/2023 19:14:08 Wet Read Request 06/13/2023 19:28:14 Meds Admin Complete 06/13/2023 20:25:42 06/13/2023 21:05:30 Discharge Complete 06/13/2023 20:33:44 06/13/2023 21:11:14 06/13/2023 21:11:14 Transfer Complete 06/13/2023 21:11:14 06/13/2023 21:11:14 06/13/2023 21:11:14 ADDRESS: [address] [id number] PHYS DOC NOTES: MEDICAL INFORMATION: Prescriptions Given: New Medications [id number], [address], [place] [id number], [phone] acetaminophen-oxycodone (acetaminophen-oxycodone 325 mg-5 mg Tab) 1 Tablets By Mouth every 6 hours as needed for pain for 3 Days. Refills: 0. ondansetron (Zofran ODT 4 mg Tab-Dis) 1 Tablets By Mouth every 8 hours as needed Nausea/Vomiting. Refills: 0. Medications to Continue with No Changes Other Medications acetaminophen-hydrocodone ([place] 325 mg-5 mg oral tablet) 1 Tablets By Mouth every 6 hours as needed for pain. Refills: 0. albuterol doxycycline (doxycycline hyclate 100 mg Tab) 1 Tablets By Mouth 2 times a day for 14 Days. Refills: 0. doxycycline (doxycycline monohydrate 100 mg oral tablet) 1 Tablets By Mouth 2 times a day for 14 Days. Refills: 0. levetiracetam (Keppra) mupirocin topical (Bactroban 2% Cream) 1 Application Topical 3 times a day. Refills: 1. PATIENT EDUCATION INFORMATION: Instructions: Cellulitis, Adult, Pbws-sf-Wecm Follow up: With: Address: When: [facility] [phone] [facility] [phone] [facility] [phone] In 3 days 06/16/2023 With: Address: When: Dr Meredith Hairston [phone] [facility] [phone] In 3 days 06/16/2023 With: Address: When: XXXX NONE , [place] In 3 days 06/16/2023 DIAGNOSIS: Breast pain; Cellulitis of right breast Normal [facility] ED Patient Education Noteon 06-13-2023 ED Patient Education Note Infectious Disease Cellulitis, Adult Cellulitis is a skin infection. The infected area is often warm, red, swollen, and sore. It occurs most often in the arms and lower legs. It is very important to get treated for this condition. What are the causes? This condition is caused by bacteria. The bacteria enter through a break in the skin, such as a cut, burn, insect bite, open sore, or crack. What increases the risk? This condition is more likely to occur in people who: ? Have a weak body defense system (immune system). ? Have open cuts, hairston, bites, or scrapes on the skin. ? Are older than 60 years of age. ? Have a blood sugar problem (diabetes). ? Have a long-lasting (chronic) liver disease (cirrhosis) or kidney disease. ? Are very overweight (obese). ? Have a skin problem, such as: ? Itchy rash (eczema). ? Slow movement of blood in the veins (venous stasis). ? Fluid buildup below the skin (edema). ? Have been treated with high-energy rays (radiation). ? Use IV drugs. What are the signs or symptoms? Symptoms of this condition include: ? Skin that is: ? Red. ? Streaking. ? Spotting. ? Swollen. ? Sore or painful when you touch it. ? Warm. ? A fever. ? Chills. ? Blisters. How is this diagnosed? This condition is diagnosed based on: ? Medical history. ? Physical exam. ? Blood tests. ? Imaging tests. How is this treated? Treatment for this condition may include: ? Medicines to treat infections or allergies. ? Home care, such as: ? Rest. ? Placing cold or warm cloths (compresses) on the skin. ? Hospital care, if the condition is very bad. Follow these instructions at home: Medicines ? Take chtp-ndl-stavaeh and prescription medicines only as told by your doctor. ? If you were prescribed an antibiotic medicine, take it as told by your doctor. Do not stop taking it even if you start to feel better. General instructions ? Drink enough fluid to keep your pee (urine) pale yellow. ? Do not touch or rub the infected area. ? Raise (elevate) the infected area above the level of your heart while you are sitting or lying down. ? Place cold or warm cloths on the area as told by your doctor. ? Keep all follow-up visits as told by your doctor. This is important. Contact a doctor if: ? You have a fever. ? You do not start to get better after 1?2 days of treatment. ? Your bone or joint under the infected area starts to hurt after the skin has healed. ? Your infection comes back. This can happen in the same area or another area. ? You have a swollen bump in the area. ? You have new symptoms. ? You feel ill and have muscle aches and pains. Get help right away if: ? Your symptoms get worse. ? You feel very sleepy. ? You throw up (vomit) or have watery poop (diarrhea) for a long time. ? You see red streaks coming from the area. ? Your red area gets larger. ? Your red area turns dark in color. These symptoms may represent a serious problem that is an emergency. Do not wait to see if the symptoms will go away. Get medical help right away. Call your local emergency services (911 in the [place] Do not drive yourself to the hospital. Summary ? Cellulitis is a skin infection. The area is often warm, red, swollen, and sore. ? This condition is treated with medicines, rest, and cold and warm cloths. ? Take all medicines only as told by your doctor. ? Tell your doctor if symptoms do not start to get better after 1?2 days of treatment. This information is not intended to replace advice given to you by your health care provider. Make sure you discuss any questions you have with your health care provider. Document Revised: 06/27/2022 Document Reviewed: 06/27/2022 [employer] Patient Education ? 2022 [employer] Normal [facility] ED Patient Summaryon 023 ED Patient Summary (Inserted Image. Adali ble to display) [place] [id number] Patient Discharge Instructions Person Information Name: GUS MAIER Age: 37 Years Arrival Date: 06/13/2023 17:37:06 Discharge Diagnosis: Breast pain; Cellulitis of right breast Primary Care Physician: NONE, XXXX Provider Information Primary Provider: Cooper Juarez DO Advanced Lead Cargoman:None The exam and treatment you received in the Emergency Department were for an urgent problem and are not intended as complete care. It is important that you follow up with a doctor, nurse practitioner, or physician?s music assistant for ongoing care. If your symptoms become worse or you do not improve as expected and you are unable to reach your usual health care provider, you should return to the Emergency Department. We are available 24 hours a day. GUS MAIER has been given the following list of patient education materials, prescriptions and follow-up instructions: Follow-up Instructions: With: Address: When: [facility] [phone] [facility] [phone] [facility] [phone] In 3 days 06/16/2023 With: Address: When: Dr Meredith Hairston [phone] [facility] [phone] In 3 days 06/16/2023 With: Address: When: XXXX NONE , [place] In 3 days 06/16/2023 In the event that this physician does not participate in your insurance network, please consult with your insurance company to find a nearby participating provider. Patient Education Materials: Cellulitis, Adult, Ubnf-db-Snzd A MESSAGE TO ALL PATIENTS REGARDING OPIOIDS PRESCRIPTION OPIOIDS: WHAT YOU NEED TO KNOW Prescription opioids can be used to help relieve umgrgbhw-ae-ixxjly pain and are often prescribed following a surgery or injury, or for certain health conditions. These medications can be an important part of the treatment but also come with serious risks. It is important to work with your healthcare provider to make sure you are getting the safest, most effective care. WHAT ARE THE RISKS AND SIDE EFFECTS OF OPIOID USE? Prescription opioids carry serious risks of addiction and overdose, especially with prolonged use. An opioid overdose, often marked by slowed breathing, can cause sudden . The use of prescription opioids can have a number of side effects as well, even when taken as directed: ? Tolerance?meaning you might need to take more of the medication for the same pain relief ? Physical dependence?meaning you have symptoms of withdrawal when a medication is stopped ? Increased sensitivity to pain ? Constipation ? Nausea, vomiting, and dry mouth ? Sleepiness and dizziness ? Confusion ? Depression ? Low levels of testosterone that can result in lower sex drive, energy, and strength ? Itching and sweating RISKS ARE GREATER WITH: ? History of drug misuse, substance use disorder, or overdose ? Mental health conditions (such as depression or anxiety) ? Sleep apnea ? Older age (65 years and older) ? Avoid alcohol while taking prescription opioids. Also, unless specifically advised by your health care provider, medications to avoid include: ? Benzodiazepines (such as Xanax or Valium) ? Muscle relaxants (such as Soma or Flexeril) ? Hypnotics (such as Ambien or Lunesta) ? Other prescription opioids KNOW YOUR OPTIONS Talk to your health care provider about ways to manage your pain that don?t involve prescription opioids. Some of these options may actually work better and have fewer risks and side effects. Options may include: ? Pain relievers such as acetaminophen, ibuprofen, and naproxen ? Some medication that are also used for depression or seizures ? Physical therapy and exercise ? Cognitive behavioral therapy, a psychological, goal-directed approach, in which patients learn how to modify physical, behavioral, and emotional triggers of pain and stress. IF YOU ARE PRESCRIBED OPIOIDS FOR PAIN: ? Never take opioids in greater amounts or more often than prescribed. ? Follow up with your primary health care provider. o Work together to create a plan on how to manage your pain. o Talk about ways to help manage your pain that don?t involve prescription opioids. o Talk about any and all concerns and side effects. ? Help prevent misuse and abuse o Never sell or share prescription opioids. o Never use another person?s prescription opioids. ? Store prescription opioids in a secure place and out of reach of others (this may include visitors, children, friends, and family). ? Safely dispose of unused prescription opioids: Find your community drug take-back program or your pharmacy mail-back program, or flush them down the toilet, following guidance from the Food and Drug Administration (www.fda.gov/Drugs/Resource sForYou). ? Visit www.cdc.gov/drugoverdose to learn about the risks of (more content not included)... Normal [facility] HEMATOLOGYOrdered By: SYSTEM SYSTEM on 06-13-2023 Basophils/100 WBC (Bld) 0.4 % Normal 0.0 - 2.0 % [facility] Basophils/Leukocytes Auto (Bld) [Pure # fraction] 0.0 E9/L Normal 0.0 - 0.2 E9/L [facility] Eosinophils/100 WBC (Bld) 1.5 % Normal 0.0 - 8.0 % [facility] Eosinophils/Leukocytes Auto (Bld) [Pure # fraction] 0.1 E9/L Normal 0.0 - 0.5 E9/L [facility] Lymphocytes/100 WBC (Bld) 15.5 % Normal 14.0 - 50.0 % [facility] Lymphocytes/Leukocytes Auto (Bld) [Pure # fraction] 1.5 E9/L Normal 1.0 - 4.0 E9/L [facility] Monocytes/100 WBC (Bld) 4.6 % Normal 4.0 - 14.0 % [facility] Monocytes/Leukocytes Auto (Bld) [Pure # fraction] 0.5 E9/L Normal 0.2 - 1.0 E9/L [facility] Neutrophils/100 WBC (Bld) 78.0 % High 36.0 - 75.0 % [facility] Neutrophils/Leukocytes Auto (Bld) [Pure # fraction] 7.7 E9/L High 2.0 - 7.5 E9/L [facility] HEMATOLOGYOrdered By: Aneta n Ann eMarie on 06-13-2023 Erythrocyte distribution width (RBC) [Ratio] 13.3 % Normal 10.9 - 14.2 % [facility] Hematocrit (Bld) [Volume fraction] 40.3 % Normal 34.0 - 46.0 % [facility] Hemoglobin (Bld) [Mass/Vol] 14.0 g/dL Normal 12.0 - 16.0 gm/dL [facility] MCH (RBC) [Entitic mass] 30.2 pg Normal 27.0 - 34.0 pg [facility] MCHC (RBC) [Mass/Vol] 34.7 g/dL Normal 31.4 - 36.0 gm/dL [facility] MCV (RBC) [Entitic vol] 86.9 fL Normal 80.0 - 100.0 fL [facility] HemeAutoSS Platelet mean volume (Bld) [Entitic vol] 6.6 fL Normal 6.4 - 10.8 fL [facility] Platelets (Bld) [#/Vol] 416.0 E9/L Normal 150.0 - 500.0 E9/L [facility] RBC (Bld) [#/Vol] 4.6 E12/L Normal 4.3 - 5.9 E12/L [facility] WBC corrected for nucl RBC Auto (Bld) [#/Vol] 9.8 E9/L Normal 4.0 - 11.0 E9/L [facility] Lactic Acidon 06-13-2023 Lactate [Mass/Vol] 1.2 mmol/L Normal 0.5-2.2 [facility] Comment on above: Performed By: #### 2 [id number], [id number], 5962145, 25441563, 73452104, 2622130, [id number] ####[facility] [address] [place] [address] PT & PTTon 06-13-2023 aPTT Coag (PPP) [Time] 33.9 second(s) Normal 25.1-36.5 [facility] Comment on above: Result Comment: Para meter 15 days - 4 weeks 1 - 5 months 6 - 11 months 1 - 5 years 6 - 10 years 11 - 17 years PTT Mean: 35.4 (27.6-45.6) Mean: 33.5 (24.8-40.7) Mean: 32.4 (25.1-40.7) Mean: 31.6 (24.0-39.2) Mean: 31.6 (26.9-38.7) Mean: 31.0 (24.6-38.4) Pediatric Reference ranges were obtained from a study by Brayden Zuñiga et al. prepared from 1437 samples obtained at 7 different centers using the same coagulation reagent and instrumentation as [facility]. Currently there are no coagulation studies available worldwide for children to 14 days, and no normal ranges. Heparin therapeutic range (represented by Anti-Factor Xa activity of 0.2 - 0.4 U/mL) corresponds to PTT of 56.6 - 109.0 sec. Performed By: #### 2 551224, 0361049, 7682612, 21489159, 21546242, 1077656, [id number] ####[facility] [address] [place] [address] INR Coag (PPP) [Relative time] 1.1 {INR} Invalid Interpretation Code [facility] Comment on above: Result Comment: INR results are specifically intended to assess patients stabilized on long-term Anticoagulation therapy suggested INR?s ?Less Intensive Anticoagulation? 2.0 ? 3.0 Conventional Range 3.0 ? 4.5 Performed By: #### 2 380170, 9402339, 0697011, 97614605, 14634538, 2904740, 28819108 ####[facility] [address] [place] [address] PT Coag (PPP) [Time] 12.2 second(s) Normal 9.4-12.5 [facility] Comment on above: Result Comment: 15 d ays - 4 weeks 1 - 5 months 6 -11 months 1 ? 5 years 6 ? 10 years 11 -17 years Mean: 11.2 (9.5 ? 12.6) Mean: 11.0 (9.7 ? 12.8) Mean: 11.0 (9.8 ? 13.0) Mean: 11.3 (9.9 ? 13.4) Mean: 11.7 (10.0 ? 14.6) Mean: 11.8 (10.0 - 14.1) Pediatric Reference ranges were obtained from a study by Brayden Zuñiga et al. prepared from 1437 samples obtained at 7 different centers using the same coagulation reagent and instrumentation as [facility]. Currently there are no coagulation studies available worldwide for children to 14 days, and no normal ranges. Performed By: #### 2 256875, 9772973, 6292318, 81822812, 09441490, 9006369, 19402919 ####[facility] [address] [place] [address] Prescriptions/Work Noteson 0 06-13-2023 Prescriptions/Work Notes [id number]#[id number]:127 Normal [facility] Prescriptions/Work Notes [id number]#[id number]:127 Normal [facility] Troponin 0 Hr.on 06-13-2023 Troponin I.cardiac [Mass/Vol] 2.70 pg/mL Low 10.10-27.1 0 [facility] Comment on above: Result Comment: The 95% CI (Confidence Interval) PPV (Positive Predictive Value) for myocardial infarction in females is 38 pg/mL, in males 51 pg/mL. The results should be used in conjunction with clinical conditions of myocardial infarction. (Access High Sensitivity Troponin I Instructions For Use, [employer], April 2018) Performed By: #### 2 176768, 9674059, 9524839, 30609678, 01587973, 0045352, 73816305 ####[facility] [address] [place] [address] XR Chest Single Viewon 06-13 XR Chest Single View Exam Date/Time: 06/13/2023 19:28 EDT Reason for Exam: Chest pain Report IMPRESSION: No acute radiographic abnormality. EXAMINATION: XR Chest Single View Clinical History: Chest pain Comparison: None RESULT: No consolidation. No pleural effusion. No pneumothorax. Normal cardiomediastinal silhouette. No acute osseous findings. Ordering Provider: Jose Elizondo FINAL REPORT Dictated: 06/13/2023 7:52 pm Terry Carson MD Signed (Electronic Signature): 06/13/2023 7:52 pm Signed by: Terry Carson MD Transcribed by: LAUREL Technologist: ADELITA Technical Comments Radiation Dose: Ka,r in mGy = na DAP = a Normal [facility] eGFRon 06-13-2023 GFR/1.73 sq M.predicted among non-blacks MDRD (S/P/Bld) [Vol rate/Area] 119 mL/min/1.73 m2 Normal >=59 [facility] Comment on above: Order Comment: Order added by Discern Expert. Result Comment: Shaper Hand john kidney disease could be indicated at eGFR's of less than 60 mL/min/1.73m2. Kidney failure is indicated at less than 15 mL/min/1.73m2. Performed By: #### 2 069918, 1356282, 6004404, 67863680, 39699699, 6201855, 96930244 ####[facility] [address] [place] [address] Consent for Treatmenton 05-30 Consent for Treatment [id number]#[id number]:127 Normal [facility] Discharge Instructionson Discharge Instructions [id number]#[id number]:127 Normal [facility] ED Clinical Summaryon 2022 ED Clinical Summary (Inserted Image. Adali ble to display) [address] [address] ED Clinical Summary Person Information Name: GUS MAIER Malia/[facility] Age: 37 Years : 1985 Sex: Female Language: Ugandan PCP: NONE, XXXX Marital Status: Phone: [phone] Visit Id: Visit Reason: Medical problem - minor; RT BREAST PROBLEM Speciality: Acuity: 4 Enc Type: Emergency Med Service: Emergency Arrival: 06/10/2023 13:23:33 Discharge: 06/10/2023 14:54:40 LOS: 000 01:31 Checkin: 06/10/2023 13:23:33 Checkout: 06/10/2023 14:54:40 Dispo Type: Home (Routine DC) EVENTS: Event Name Event Status Request Date/Time Start Date/Time Complete Date/Time Arrive Complete 06/10/2023 13:23:33 06/10/2023 13:23:33 06/10/2023 13:23:33 Document Home Meds Request 06/10/2023 13:23:33 Triage Complete 06/10/2023 13:23:33 06/10/2023 13:41:43 06/10/2023 13:41:43 Bed Assign Complete 06/10/2023 13:36:59 06/10/2023 13:36:59 06/10/2023 13:36:59 Dr Exam Complete 06/10/2023 13:36:59 06/10/2023 13:39:33 06/10/2023 13:39:33 RN Exam Complete 06/10/2023 13:36:59 06/10/2023 13:57:44 06/10/2023 13:57:44 Registration Complete 06/10/2023 13:39:33 06/10/2023 14:24:22 06/10/2023 14:24:22 Dr Exam Complete 06/10/2023 13:39:39 06/10/2023 13:39:39 06/10/2023 13:39:39 Reg Complete Request 06/10/2023 14:24:22 Reg Bed Request Complete 06/10/2023 14:24:22 06/10/2023 14:24:22 06/10/2023 14:24:22 Discharge Complete 06/10/2023 14:30:19 06/10/2023 14:54:46 06/10/2023 14:54:46 Transfer Complete 06/10/2023 14:54:46 06/10/2023 14:54:46 06/10/2023 14:54:46 ADDRESS: [address] [id number] PHYS DOC NOTES: MEDICAL INFORMATION: Prescriptions Given: New Medications [facility]/pharmacy #[id number], [address], [place] [id number], [phone] acetaminophen-hydrocodone ([place] 325 mg-5 mg oral tablet) 1 Tablets By Mouth every 6 hours as needed for pain. Refills: 0. doxycycline (doxycycline hyclate 100 mg Tab) 1 Tablets By Mouth 2 times a day for 14 Days. Refills: 0. mupirocin topical (Bactroban 2% Cream) 1 Application Topical 3 times a day. Refills: 1. [facility] 0949, [address] [phone], [phone] doxycycline (doxycycline monohydrate 100 mg oral tablet) 1 Tablets By Mouth 2 times a day for 14 Days. Refills: 0. Medications to Continue with No Changes Other Medications albuterol levetiracetam (Keppra) PATIENT EDUCATION INFORMATION: Instructions: Follow up: With: Address: When: [facility] [phone] [facility] [phone] [facility] [phone] In 3 days 06/13/2023 With: Address: When: Dr Meredith Hairston [phone] [facility] [phone] In 3 days 06/13/2023 With: Address: When: KATHRYN MINAYA [address] [place] [phone] Business (1) In 3 days DIAGNOSIS: 1:Cellulitis of right breast Normal [facility] ED Patient Education Noteon 06-10-2023 ED Patient Education Note Normal [facility] ED Patient Summaryon 023 ED Patient Summary (Inserted Image. Adali ble to display) [address] [address] Patient Discharge Instructions Person Information Name: GUS MAIER Age: 37 Years Arrival Date: 06/10/2023 13:23:33 Discharge Diagnosis: 1:Cellulitis of right breast Primary Care Physician: NONE, XXXX Provider Information Primary Provider: Ashish Cruz DO Advanced Lead Cargoman:None The exam and treatment you received in the Emergency Department were for an urgent problem and are not intended as complete care. It is important that you follow up with a doctor, nurse practitioner, or physician?s music assistant for ongoing care. If your symptoms become worse or you do not improve as expected and you are unable to reach your usual health care provider, you should return to the Emergency Department. We are available 24 hours a day. VELASQUEZ GUS Joce has been given the following list of patient education materials, prescriptions and follow-up instructions: Follow-up Instructions: With: Address: When: [facility] [phone] [facility] [phone] [facility] [phone] In 3 days 06/13/2023 With: Address: When: Dr Meredith Hairston [phone] [facility] [phone] In 3 days 06/13/2023 With: Address: When: KATHRYN MINAYA [address] [place] [phone] A-TEX (1) In 3 days In the event that this physician does not participate in your insurance network, please consult with your insurance company to find a nearby participating provider. Patient Education Materials: A MESSAGE TO ALL PATIENTS REGARDING OPIOIDS PRESCRIPTION OPIOIDS: WHAT YOU NEED TO KNOW Prescription opioids can be used to help relieve zwdrwwyo-lr-fwegqt pain and are often prescribed following a surgery or injury, or for certain health conditions. These medications can be an important part of the treatment but also come with serious risks. It is important to work with your healthcare provider to make sure you are getting the safest, most effective care. WHAT ARE THE RISKS AND SIDE EFFECTS OF OPIOID USE? Prescription opioids carry serious risks of addiction and overdose, especially with prolonged use. An opioid overdose, often marked by slowed breathing, can cause sudden . The use of prescription opioids can have a number of side effects as well, even when taken as directed: ? Tolerance?meaning you might need to take more of the medication for the same pain relief ? Physical dependence?meaning you have symptoms of withdrawal when a medication is stopped ? Increased sensitivity to pain ? Constipation ? Nausea, vomiting, and dry mouth ? Sleepiness and dizziness ? Confusion ? Depression ? Low levels of testosterone that can result in lower sex drive, energy, and strength ? Itching and sweating RISKS ARE GREATER WITH: ? History of drug misuse, substance use disorder, or overdose ? Mental health conditions (such as depression or anxiety) ? Sleep apnea ? Older age (65 years and older) ? Avoid alcohol while taking prescription opioids. Also, unless specifically advised by your health care provider, medications to avoid include: ? Benzodiazepines (such as Xanax or Valium) ? Muscle relaxants (such as Soma or Flexeril) ? Hypnotics (such as Ambien or Lunesta) ? Other prescription opioids KNOW YOUR OPTIONS Talk to your health care provider about ways to manage your pain that don?t involve prescription opioids. Some of these options may actually work better and have fewer risks and side effects. Options may include: ? Pain relievers such as acetaminophen, ibuprofen, and naproxen ? Some medication that are also used for depression or seizures ? Physical therapy and exercise ? Cognitive behavioral therapy, a psychological, goal-directed approach, in which patients learn how to modify physical, behavioral, and emotional triggers of pain and stress. IF YOU ARE PRESCRIBED OPIOIDS FOR PAIN: ? Never take opioids in greater amounts or more often than prescribed. ? Follow up with your primary health care provider. o Work together to create a plan on how to manage your pain. o Talk about ways to help manage your pain that don?t involve prescription opioids. o Talk about any and all concerns and side effects. ? Help prevent misuse and abuse o Never sell or share prescription opioids. o Never use another person?s prescription opioids. ? Store prescription opioids in a secure place and out of reach of others (this may include visitors, children, friends, and family). ? Safely dispose of unused prescription opioids: Find your community drug take-back program or your pharmacy mail-back program, or flush them down the toilet, following guidance from the Food and Drug Administration (www.fda.gov/Drugs/Resource sForYou). ? Visit www.cdc.gov/drugoverdose to learn about (more content not included)... Normal [facility] Prescriptions/Work Noteson 0 06-10-2023 Prescriptions/Work Notes [id number]:127 Normal [facility] Activated partial thrombopla stin time (aPTT) in platelet poor plasma by coagulation aOrdered By: Katherine Zamarripa on 04-08-2023 aPTT Coag (PPP) [Time] 31.9 s 25.1-36.5 [facility] B-Type Natriuretic Peptideon 04-08-2023 Natriuretic peptide B (Bld) [Mass/Vol] 26.0 pg/mL Normal 5-100 [facility] Comment on above: Result Comment: PERF ORMED BY: [place] [address] PATHOLOGIST GLASS TUBE BENDER MANDO CALVILLO M.D. Performed By: #### P T, PTT, BNP, CBC, DDIMER, BMP, HS TROP #### [facility] [address] [place] [address] Basic Metabolic Panelon 03-29 Anion gap [Moles/Vol] 9.5 mmol/L Normal 6.0-15.0 [facility] Comment on above: Performed By: #### P T, PTT, BNP, CBC, DDIMER, BMP, HS TROP #### [facility] [address] Calcium [Mass/Vol] 9.3 mg/dL Normal 8.6-10.3 [facility] Comment on above: Performed By: #### P T, PTT, BNP, CBC, DDIMER, BMP, HS TROP #### [facility] [address] Chloride [Moles/Vol] 104 mmol/L Normal 98-107 [facility] Comment on above: Performed By: #### P T, PTT, BNP, CBC, DDIMER, BMP, HS TROP #### [facility] [address] CO2 [Moles/Vol] 27.1 mmol/L Normal 21.0-31.0 [facility] Comment on above: Performed By: #### P T, PTT, BNP, CBC, DDIMER, BMP, HS TROP #### [address] Creatinine [Mass/Vol] 0.55 mg/dL Low 0.60-1.20 [facility] Comment on above: Performed By: #### P T, PTT, BNP, CBC, DDIMER, BMP, HS TROP #### [address] Creatinine Clr Calc Pharmacy 154.61 [facility] Comment on above: Result Comment: PERF ORMED BY: [place] [address] PATHOLOGIST GLASS TUBE BENDER MANDO CALVILLO M.D. Performed By: #### P T, PTT, BNP, CBC, DDIMER, BMP, HS TROP #### [place] [address] [place] GFR/1.73 sq M.predicted MDRD (S/P/Bld) [Vol rate/Area] mL/min/{1.73_m2} [facility] Comment on above: Performed By: #### P T, PTT, BNP, CBC, DDIMER, BMP, HS TROP #### [place] [address] [place] Glucose [Mass/Vol] 81 mg/dL Normal 70-100 [facility] Comment on above: Result Comment: [facility] Glucose Reference Range is dependent on time and content of last meal. Glucose of more than 200 mg/dL in a nonstressed, ambulatory subject supports the diagnosis of Diabetes Mellitus. ADA recommended reference range Performed By: #### P T, PTT, BNP, CBC, DDIMER, BMP, HS TROP #### [facility] [address] Potassium [Moles/Vol] 3.6 mmol/L Normal 3.5-5.1 [facility] Comment on above: Performed By: #### P T, PTT, BNP, CBC, DDIMER, BMP, HS TROP #### [facility] [address] Sodium [Moles/Vol] 137 mmol/L Normal 136-145 [facility] Comment on above: Performed By: #### P T, PTT, BNP, CBC, DDIMER, BMP, HS TROP #### [facility] [address] Urea nitrogen [Mass/Vol] 7 mg/dL Normal 7-25 [facility] Comment on above: Performed By: #### P T, PTT, BNP, CBC, DDIMER, BMP, HS TROP #### [facility] [address] Basophils Auto (Bld) [#/Vol] Ordered By: Katherine Zamarripa on 04-08-2023 Basophils (Bld) [#/Vol] 0.0 10*3/uL 0.0-0.2 [facility] Basophils/100 WBC Auto (Bld) Ordered By: Katherine Zamarripa on 04-08-2023 Basophils/100 WBC (Bld) 0.4 % . [facility] Calcium [Mass/volume] in Ser um or PlasmaOrdered By: Katherine Zamarripa on 04-08-2023 Calcium [Mass/Vol] 9.3 mg/dL 8.6-10.3 [facility] Carbon dioxide, total [Moles /volume] in Serum or PlasmaOrdered By: Katherine Zamarripa on 04-08-2023 CO2 [Moles/Vol] 27.1 mmol/L 21.0-31.0 [facility] Chloride [Moles/volume] in S erik or PlasmaOrdered By: Katherine Zamarripa on 04-08-2023 Chloride [Moles/Vol] 104 mmol/L 98-107 [facility] Complete Blood Count Auto Di ffon 04-08-2023 Basophils (Bld) [#/Vol] 0.0 10*3/uL Normal 0.0-0.2 [facility] Comment on above: Result Comment: PERF ORMED BY: [place] [address] PATHOLOGIST [employer] BENDER MANDO CALVILLO M.D. Performed By: #### P T, PTT, BNP, CBC, DDIMER, BMP, HS TROP #### [address] Basophils/100 WBC (Bld) 0.4 % Normal . [facility] Comment on above: Performed By: #### P T, PTT, BNP, CBC, DDIMER, BMP, HS TROP #### [address] Eosinophils (Bld) [#/Vol] 0.3 10*3/uL Normal 0.0-0.45 [facility] Comment on above: Performed By: #### P T, PTT, BNP, CBC, DDIMER, BMP, HS TROP #### [address] Eosinophils/100 WBC (Bld) 4.7 % Normal . [facility] Comment on above: Performed By: #### P T, PTT, BNP, CBC, DDIMER, BMP, HS TROP #### [address] Erythrocyte distribution width (RBC) [Ratio] 13.2 % Normal 11.9-15.3 [facility] Comment on above: Performed By: #### P T, PTT, BNP, CBC, DDIMER, BMP, HS TROP #### [address] Hematocrit (Bld) [Volume fraction] 38.6 % Normal 34.0-46.4 [facility] Comment on above: Performed By: #### P T, PTT, BNP, CBC, DDIMER, BMP, HS TROP #### [address] Hemoglobin (Bld) [Mass/Vol] 13.2 g/dL Normal 11.8-15.4 [facility] Comment on above: Performed By: #### P T, PTT, BNP, CBC, DDIMER, BMP, HS TROP #### [address] Lymphocytes (Bld) [#/Vol] 2.0 10*3/uL Normal 1.00-4.8 [facility] Comment on above: Performed By: #### P T, PTT, BNP, CBC, DDIMER, BMP, HS TROP #### [address] Lymphocytes/100 WBC (Bld) 27.3 % Normal . [facility] Comment on above: Performed By: #### P T, PTT, BNP, CBC, DDIMER, BMP, HS TROP #### [address] MCH (RBC) [Entitic mass] 30.6 pg Normal 24.7-34.3 [facility] Comment on above: Performed By: #### P T, PTT, BNP, CBC, DDIMER, BMP, HS TROP #### [address] MCV (RBC) [Entitic vol] 88.9 fL Normal 80-100 [facility] Comment on above: Performed By: #### P T, PTT, BNP, CBC, DDIMER, BMP, HS TROP #### [address] Mean Corpuscular HGB Conc 34.4 g/dL Normal 32.0-35.0 [facility] Comment on above: Performed By: #### P T, PTT, BNP, CBC, DDIMER, BMP, HS TROP #### [address] Monocytes (Bld) [#/Vol] 0.6 10*3/uL Normal 0.0-0.8 [facility] Comment on above: Performed By: #### P T, PTT, BNP, CBC, DDIMER, BMP, HS TROP #### [address] Monocytes/100 WBC (Bld) 17.42 % Normal 0.00-20.00 [facility] Comment on above: Performed By: #### P T, PTT, BNP, CBC, DDIMER, BMP, HS TROP #### [place] [address] [place] Monocytes/100 WBC (Bld) 8.4 % Normal . [facility] Comment on above: Performed By: #### P T, PTT, BNP, CBC, DDIMER, BMP, HS TROP #### [address] Neutrophils (Bld) [#/Vol] 4.3 10*3/uL Normal 1.8-7.7 [facility] Comment on above: Performed By: #### P T, PTT, BNP, CBC, DDIMER, BMP, HS TROP #### [address] Neutrophils/100 WBC (Bld) 59.2 % Normal . [facility] Comment on above: Performed By: #### P T, PTT, BNP, CBC, DDIMER, BMP, HS TROP #### [place] [address] [place] NRBC% 0.1 /100{WBC} Normal 0-0.5 [facility] Comment on above: Performed By: #### P T, PTT, BNP, CBC, DDIMER, BMP, HS TROP #### [address] Platelet mean volume (Bld) [Entitic vol] 7.7 fL Normal 6.3-10.7 [facility] Comment on above: Performed By: #### P T, PTT, BNP, CBC, DDIMER, BMP, HS TROP #### [facility] [address] Platelets (Bld) [#/Vol] 301 10*3/uL Normal 150-450 [facility] Comment on above: Performed By: #### P T, PTT, BNP, CBC, DDIMER, BMP, HS TROP #### [facility] [address] RBC (Bld) [#/Vol] 4.34 10*6/uL Normal 3.60-5.00 [facility] Comment on above: Performed By: #### P T, PTT, BNP, CBC, DDIMER, BMP, HS TROP #### [facility] [address] WBC (Bld) [#/Vol] 7.3 10*3/uL Normal 3.8-11.6 [facility] Comment on above: Performed By: #### P T, PTT, BNP, CBC, DDIMER, BMP, HS TROP #### [facility] [address] Creatinine [Mass/volume] in Serum or PlasmaOrdered By: Katherine Zamarripa on 04-08-2023 Creatinine [Mass/Vol] 0.55 mg/dL 0.60-1.20 [facility] D-Dimer High Sensitivityon 0 04-08-2023 D-Dimer High Sensitivity < 200 Normal 0-243 [facility] Comment on above: Result Comment: The reference range for D-dimer is <243 ng/mL D-dimer units. D-dimer results must be used in conjunction with a clinical pretest probability (PTP) assessment model for deep vein thrombosis (DVT) and pulmonary embolism (PE). Results <230 ng/mL d-dimer units can be used as a negative predictor in patients with low or moderate probability for DVT/PE. Results above the exclusion threshold of 230 ng/ml D-dimer units for DVT/PE may indicate the need for further diagnostic testing. D-Dimer can be increased in hospitalized patients due to co-morbid conditions. PERFORMED BY: [place] [address] PATHOLOGIST [employer] BENDER MANDO CALVILLO M.D. Performed By: #### P T, PTT, BNP, CBC, DDIMER, BMP, HS TROP #### [facility] [address] [place] [address] [facility] ECG 12 lead ECGon 04-08-2023 ECG 12 lead ECG [facility] [place] [address] [place] [address] Electrocardiograph Report Signed Patient: Gus Maier MR#: [id number] : 1985 Acct:[id number] Age/Sex: 37 / F ADM Date: 04/08/23 Loc: ER Room: Type: [facility] ER Attending Dr: Ordering Provider: Katherine Zamarripa APRN Date of Service: 04/08/2308/21/1951 ECG/ECG 12 lead ECG: Chest Pain Copies to: Test Reason : Blood Pressure : 137/065 mmHG Vent. Rate : 048 BPM Atrial Rate : 048 BPM P-R Int : 136 ms QRS Dur : 082 ms QT Int : 438 ms P-R-T Axes : 062 066 057 degrees QTc Int : 391 ms Sinus bradycardia Otherwise normal ECG No previous ECGs available Confirmed by PRICE BERNAL DO ([id number]) on 04/09/2023 3:05:33 AM Referred By: Electronically Signed By:PRICE BERNAL DO Transcribed By: MUS Signed By Price Bernal DO 0305 Normal [facility] Eosinophils Auto (Bld) [#/Vo l]Ordered By: Katherine Zamarripa on 04-08-2023 Eosinophils (Bld) [#/Vol] 0.3 10*3/uL 0.0-0.45 [facility] Eosinophils/100 WBC Auto (Bl d)Ordered By: Katherine Zamarripa on 04-08-2023 Eosinophils/100 WBC (Bld) 4.7 % . [facility] Erythrocyte distribution wid th Auto (RBC) [Ratio]Ordered By: Katherine Zamarripa on 04-08-2023 Erythrocyte distribution width (RBC) [Ratio] 13.2 % 11.9-15.3 [facility] Glucose [Mass/volume] in Ser um or PlasmaOrdered By: Katherine Zamarripa on 04-08-2023 Glucose [Mass/Vol] 81 mg/dL 70-100 [facility] Comment on above: ADA recommended refe rence rangeRandom Glucose Reference Range is dependent on time and content of last meal. Glucose of more than 200 mg/dL in a nonstressed, ambulatory subject supports the diagnosis of Diabetes Mellitus. Hematocrit Auto (Bld) [Volum e fraction]Ordered By: Katherine Zamarripa on 04-08-2023 Hematocrit (Bld) [Volume fraction] 38.6 % 34.0-46.4 [facility] Hemoglobin [Mass/volume] in BloodOrdered By: Katherine Zamarripa on 04-08-2023 Hemoglobin (Bld) [Mass/Vol] 13.2 g/dL 11.8-15.4 [facility] Laboratory - CoagulationOrde red By: Katherine Zamarripa on 04-08-2023 PT Coag (PPP) [Time] 12.2 s 9.0-12.9 [facility] Leukocytes [#/volume] correc lin[place] for nucleated erythrocytes in Blood by Automated counOrdered By: Ktaherine Zamarripa on 04-08-2023 WBC corrected for nucl RBC Auto (Bld) [#/Vol] 7.3 10*3/uL 3.8-11.6 [facility] Lymphocytes Auto (Bld) [#/Vo l]Ordered By: Katherine Zamarripa on 04-08-2023 Lymphocytes (Bld) [#/Vol] 2.0 10*3/uL 1.00-4.8 [facility] Lymphocytes/100 WBC Auto (Bl d)Ordered By: Katherine Zamarripa on 04-08-2023 Lymphocytes/100 WBC (Bld) 27.3 % . [facility] MCH Auto (RBC) [Entitic mass ]Ordered By: Katherine Zamarripa on 04-08-2023 MCH (RBC) [Entitic mass] 30.6 pg 24.7-34.3 [facility] MCHC Auto (RBC) [Mass/Vol]Or dered By: Katherine Zamarripa on 04-08-2023 MCHC (RBC) [Mass/Vol] 34.4 g/dL 32.0-35.0 [facility] MCV Auto (RBC) [Entitic vol] Ordered By: Katherine Zamarripa on 04-08-2023 MCV (RBC) [Entitic vol] 88.9 fL 80-100 [facility] Monocyte distribution width [Entitic volume] in Blood by AutomatedOrdered By: Katherine Zamarripa on 04-08-2023 Monocyte distribution width Auto (Bld) [Entitic vol] 17.42 % 0.00-20.00 [facility] Monocytes Auto (Bld) [#/Vol] Ordered By: Katherine Zamarripa on 04-08-2023 Monocytes (Bld) [#/Vol] 0.6 10*3/uL 0.0-0.8 [facility] Monocytes/100 WBC Auto (Bld) Ordered By: Katherine Zamarripa on 04-08-2023 Monocytes/100 WBC (Bld) 8.4 % . [facility] Natriuretic peptide B [Mass/ Vol]Ordered By: Katherine Zamarripa on 04-08-2023 Natriuretic peptide B (Bld) [Mass/Vol] 26.0 pg/mL 5-100 [facility] Neutrophils Auto (Bld) [#/Vo l]Ordered By: Katherine Zamarripa on 04-08-2023 Neutrophils (Bld) [#/Vol] 4.3 10*3/uL 1.8-7.7 [facility] Neutrophils/100 WBC Auto (Bl d)Ordered By: Katherine Zamarripa on 04-08-2023 Neutrophils/100 WBC (Bld) 59.2 % . [facility] No Panel InformationOrdered By: Katherine Zamarripa on 04-08-2023 D-Dimer Quantitative (PE/DVT) < 200 ng/mL 0-243 [facility] Comment on above: The reference range for D-dimer is <243 ng/mL D-dimer units.D-dimer results must be used in conjunction with a clinicalpretest probability (PTP) assessment model for deep veinthrombosis (DVT) and pulmonary embolism (PE). Results <230ng/mL d-dimer units can be used as a negative predictor inpatients with low or moderate probability for DVT/PE.Results above the exclusion threshold of 230 ng/ml D-dimerunits for DVT/PE may indicate the need for furtherdiagnostic testing.D-Dimer can be increased in hospitalized patients due toco-morbid conditions. Estimated GFR (CKD-EPI) > 60.0 mL/Min [facility] Creatinine Clearance (Chem 154.61 [facility] Nucleated erythrocytes [Pres ence] in Blood by Automated countOrdered By: Katherine Zamarripa on 04-08-2023 Nucleated RBC Auto Ql (Bld) 0.1 /100{WBC} 0-0.5 [facility] Partial Thromboplastin Timeo n 04-08-2023 aPTT Coag (Bld) [Time] 31.9 s Normal 25.1-36.5 [facility] Comment on above: Performed By: #### P T, PTT, BNP, CBC, DDIMER, BMP, HS TROP #### [facility] [address] [place] [address] Platelet mean volume Auto (B ld) [Entitic vol]Ordered By: Katherine Zamarripa on 04-08-2023 Platelet mean volume (Bld) [Entitic vol] 7.7 fL 6.3-10.7 [facility] Platelet poor plasma interna tional normalized ratio (INR) by coagulation assay (relatOrdered By: Katherine Zamarripa on 04-08-2023 INR Coag (PPP) [Relative time] 1.1 {INR} [facility] Comment on above: INR Therapeutic Rang e A) Pre- and Peroperative OAT started two weeks before surgery. NOT HIP SURGERY: 1.5 - 2.5 HIP SURGERY: 2 - 3B) Primary and secondary prevention of venous THROMBOSIS: 2 - 3C) Active venous thrombosis, pulmonary embolismand prevention of recurrent venous thrombosis: 2 - 3D) Prevention of arterial thromboembolismincluding patients with mechanical heart valves: 3 - 4.5 Platelets Auto (Bld) [#/Vol] Ordered By: Katherine Zamarripa on 04-08-2023 Platelets (Bld) [#/Vol] 301 10*3/uL 150-450 [facility] Potassium [Moles/volume] in Serum or PlasmaOrdered By: Katherine Zamarripa on 04-08-2023 Potassium [Moles/Vol] 3.6 mmol/L 3.5-5.1 [facility] Prothrombin Time INRon 04-08 INR Coag (PPP) [Relative time] 1.1 {INR} Normal [facility] Comment on above: Result Comment: INR Therapeutic Range A) Pre- and Peroperative OAT started two weeks before surgery. NOT HIP SURGERY: 1.5 - 2.5 HIP SURGERY: 2 - 3 B) Primary and secondary prevention of venous THROMBOSIS: 2 - 3 C) Active venous thrombosis, pulmonary embolism and prevention of recurrent venous thrombosis: 2 - 3 D) Prevention of arterial thromboembolism including patients with mechanical heart valves: 3 - 4.5 Performed By: #### P T, PTT, BNP, CBC, DDIMER, BMP, HS TROP #### [facility] [address] [place] [address] PT Coag (PPP) [Time] 12.2 s Normal 9.0-12.9 [facility] Comment on above: Performed By: #### P T, PTT, BNP, CBC, DDIMER, BMP, HS TROP #### [facility] [address] [place] [address] RBC Auto (Bld) [#/Vol]Ordere d By: Katherine Zamarripa on 04-08-2023 RBC (Bld) [#/Vol] 4.34 10*6/uL 3.60-5.00 [facility] Serum or plasma anion gap de terminationOrdered By: Katherine Zamarripa on 04-08-2023 Anion gap [Moles/Vol] 9.5 mmol/L 6.0-15.0 [facility] Sodium [Moles/volume] in Ser um or PlasmaOrdered By: Katherine Zamarripa on 04-08-2023 Sodium [Moles/Vol] 137 mmol/L 136-145 [facility] Troponin I High Sensitivityo n 04-08-2023 Troponin I High Sensitivity 2.4 pg/mL Normal 0.0-15.0 [facility] Comment on above: Result Comment: PERF ORMED BY: [place] [address] PATHOLOGIST [employer] BENDER MANDO CALVILLO M.D. Performed By: #### P T, PTT, BNP, CBC, DDIMER, BMP, HS TROP #### [facility] [address] [place] [id number] [facility] Troponin I.cardiac [Mass/vol ume] in Serum or Plasma by Detection limit <= 0.01 ng/Ordered By: Katherine Zamarripa on 04-08-2023 Troponin I.cardiac DL <= 0.01 ng/mL [Mass/Vol] 2.4 pg/mL 0.0-15.0 [facility] Urea nitrogen [Mass/volume] in Serum or PlasmaOrdered By: Katherine Zamarripa on 04-08-2023 Urea nitrogen [Mass/Vol] 7 mg/dL 7- [facility] WBC Auto (Bld) [#/Vol]Ordere d By: Katherine Zamarripa on 04-08-2023 WBC (Bld) [#/Vol] 7.3 10*3/uL 3.8-11.6 [facility] XR chest 2V*on 04-08-2023 XR chest 2V* [facility] [place] [address] [place] [address] XRay Report Signed Patient: Gus Maier MR#: [id number] : 1985 Acct:[id number] Age/Sex: 37 / F ADM Date: 04/08/23 Loc: ER Room: Type: [facility] ER Attending Dr: Copies to: Katherine Zamarripa APRN Ordering Provider: Katherine Zamarripa APRN Date of Service: 04/08/23 XR/XR chest 2V*: Chest Pain Plain film chest 2 view HISTORY: Low heart rate COMPARISON: None FINDINGS: SUPPORT DEVICES: None POSTSURGICAL CHANGES: None HEART: Within normal limits PULMONARY RIOS: Within normal limits MEDIASTINUM: Unremarkable LUNGS AND PLEURA: No acute lung process, pleural effusion or pneumothorax identified. BONY STRUCTURES: Intact ADDITIONAL FINDINGS None XR/XR chest 2V* IMPRESSION: No acute process. Impression dictated by: Stephen Ashraf M.D.04/08/2023 9:01 PM Dictation Location: [place] [address] Transcribed By: [facility] 04/08/232100 Dictated By: Stephen Ashraf DO 04/08/23 2100 Signed By: 04/08/23 210 [facility] 36on 03-26-2023 36 S: Caller spoke with [facility] nurse regarding multiple issues. B: Onset of symptoms/concern: Not an established patient A: Caller states she has been to several doctors but no one seems to be able to help her, calling regarding multiple issues, Hx- MS, looking for someone to possibly help her. R: Caller scheduled on 04/28/23 to establish care with Andreea Oliveira , insurance coverage verified. Patient placed on wait list in case of a cancellation. Reason for Disposition Requesting regular office appointment Protocols used: Information Only Call - No [id number] Aerobic Cultureon 03-12-2023 Aerobic Culture Result Tab Codes Light Normal Skin Vonda 2 Days No Anaerobes Isolated 3 Days Gram Stain Result 3+ White Blood Cells No Bacteria Seen PERFORMED BY: [place] [address] PATHOLOGIST GL[employer] TU[employer] BENDER MANDO CALVILLO M.D. [facility] Comment on above: Performed By: #### G S, AERC #### [facility] [address] [place] [address] [facility] Aerobic cultureOrdered By: Najma Kramer on 03-12-2023 Bacteria identified Aer cx Nom (Unsp spec) [facility] Anaerobic cultureOrdered By: Maru Kramer on 03-12-2023 Bacteria identified Anaer cx Nom (Unsp spec) No Anaerobes Isolated 3 Days [facility] Gram Stainon 03-12-2023 Microscopic observation Gram stain Nom (Unsp spec) Gram Stain Result 3+ White Blood Cells No Bacteria Seen PERFORMED BY: [facility] [address] [place] [address] PATHOLOGIST GL[employer] TU[employer] BENDER MANDO CALVILLO M.D. [facility] Comment on above: Performed By: #### G S, AERC #### [facility] [address] [place] [address] [place] Gram stain for investigation of transfusion reactionOrdered By: Maru Kramer on 03-12-2023 Microscopic observation Gram stain Nom (Unsp spec) [facility] Covid-19 PCR (CVDTBH)on SARS-CoV-2 (COVID-19) RNA GLORIA+probe Ql (Unsp spec) Detected Abnormal NOT DETECTED [facility] Comment on above: Result Comment: This test is not yet approved or cleared by the [place] FDA. When there are no FDA-approved or cleared tests available, and other criteria are met, FDA can make tests available under an emergency access mechanism called an Emergency Use Authorization (EUA). The EUA for this test is supported by the [place] of Health and Human Service's (HHS's) declaration that circumstances exist to justify the emergency use of in vitro diagnostics for the detection and/or diagnosis of the virus that causes COVID-19. This EUA will remain in effect (meaning this test can be used) for the duration of the COVID-19 declaration justifying emergency of IVDs, unless it is terminated or revoked by FDA (after which the test may no longer be used). Performed By: #### C VDTB #### [facility] [address] [place] [address] Dr. Constantine Ruth INFLUENZA A AND B AGon 10-06 [facility] SEE BELOW Normal [facility] Comment on above: Result Comment: Nega tive for Flu A protein angiten. Infection due to Flu A cannot be ruled out. Flu A angiten in the sample may be below the detection limit of the test. Performed By: #### I NFLUAB #### [facility] [address] [place] [address] Dr. [facility] BEL[facility] Normal [facility] Comment on above: Result Comment: Nega tive for Flu B protein antigen. Infection due to Flu B cannot be ruled out. Flu B antigen in the sample may be below the detection limit of the test. Performed By: #### I NFLUAB #### [facility] [address] [place] [address] Dr. Constantine Ruth INFLUENZA A AG Negative Normal NEGATIVE SEE COMMENT [facility] Comment on above: Performed By: #### I NFLUAB #### [facility] [address] [place] [address] Dr. Constantine Ruth INFLUENZA B AG Negative Normal NEGATIVE SEE COMMENT [facility] Comment on above: Performed By: #### I NFLUAB #### [facility] [address] [address] [address] Constantine Rivera 08-14-2022 TINGN Telephone (GENSLN) GUS PLASCENCIA ([id number]) 1985 F Date Time Provider Department 08/14/22 TIMUR HODGES During your visit today, we recorded the following information about you: Kat Rodriguez Soto 08/14/2022 10:22 AM Signed Nikky from Dr Ashish Paniagua's office called requesting records from Dr Hodges, office notes and images if any. # [phone] fax # [phone] Thank you. Ely Stevens Ma 08/16/2022 12:47 PM Signed I tried to call Dr's office below to discuss, patient has not been seen by Dr. Hodges and was seen by Dr. Resendiz. When I called the office number below the voicemail states their office is closed due to staff education , they will reopen on Friday. I will forward this message to Dr. Resendiz's office. Allergies As of Date: 08/14/2022 Noted Allergy Reaction AMOXICILLIN 02/13/2021 12 - Shortness of Breath Comments: Shortness of breath DEMEROL (MEPERIDINE (PF)) 06/18/2017 14 - Other: See Comments Comments: seizures KETOROLAC TROMETHAMINE 10/07/2017 16 - Unknown PENICILLIN 10/05/2016 4 - Hives 10 - Anaphylaxis SULFAMETHOXAZOLE-TRIMETHOPR IM 02/12/2021 14 - Other: See Comments TRAMADOL 10/05/2016 4 - Hives 10 - Anaphylaxis Comments: Pt denies any allergy or adverse reactions to Percocet. Date Reviewed: 08/02/2021 Reviewed by: Kathryn Cartagena APRN.SOAKING PITS SUPERVISOR - Fully Assessed Reason for Visit: Release Of Medical Records [2017] Prescriptions as of 08/16/2022 - levETIRAcetam (KEPPRA) 750 mg tablet Take 1 tablet by mouth twice daily. - pctdinn-fnkwwtiy-azq-silico ne 2-4-2 % kit 1 application - levETIRAcetam (KEPPRA) 500 mg tablet as directed - gabapentin (NEURONTIN) 300 mg capsule Take 1 capsule by mouth twice daily for 90 days. Problem List As Of Date: 08/14/2022 (None) Encounter Status:Closed by KAT ASHBY on 08/14/22 Normal [facility] XR ANKLE RT MIN 3 VIEWSon XR ANKLE RT MIN 3 VIEWS EXAM: XR ANKLE RT MIN 3 VIEWS HISTORY: Pain COMPARISON: None. TECHNIQUE: 4 views FINDINGS: Subcutaneous soft tissue edema overlies lateral malleolus. No fracture, dislocation, subluxation or osseous lesion. Joint spaces are normal. No joint effusion IMPRESSION: Lateral soft tissue edema with no visualized acute osseous abnormality Electronically authenticated by: FRANCIS LOMBARDI Date: 2022-07-01 21:45 Normal [facility] Provider Note - EDon 09-25-2 018 Protein mass conc Document Status Changed Normal [facility] Provider Note - EDon 07-23-2 018 Protein mass conc TIME SEEN:? Time [id number] 13:08 CHIEF COMPLAINT/REASON FOR VISIT:? Chief ComplaintX 2 DAYS(1)? REASON FOR VISITSORE THROAT(1) ? Historianpatient HISTORY OF PRESENT ILLNESS - ADDITIONAL:? [id number] female presents to the Emergency Departmenttoday complaining of a 2 day history of nasal congestion, postnasal drip, sorethroat, and an occasional nonproductive cough. Denies any associated fever,chills, headache, neck pain, chest pain, shortness of breath, vomiting, nausea,vomiting, diarrhea, constipation, or urinary symptoms. No known sick contacts. Immunizations are up-to-date. ALLERGIES: Allergies:? Demerol HCl: Drug, seizure, Other(See Desc), Active? TraMADOL Hydrochloride: Drug, Hives, Active? amoxicillin: Drug, Hives, Active? penicillin: Drug, Hives, Anaphylaxis, Active? Demerol HCl: Drug, Hives, Anaphylaxis, Active? tramadol: Drug, Hives, Active OUTPATIENT MEDICATION, REVIEW/ADD MEDICATIONS:* Patient Currently Takes Medications as of 07-Jun-2018 14:24 documented inStructured Notes PAST MEDICAL HISTORY: : SEXUALLY TRANSMITTED DISEASE(1)Neuro/Psych: EPILEPSY(1)Additional Past Medical History: Multiple Sclerosis(1) PAST SURGICAL HISTORY: /Data Modeling Specialist/Breast: SECTION(1)GI/Hepatobiliary: CHOLECYSTECTOMY(1) FAMILY HISTORY:Family History: reviewed and found noncontributory (1) PAST MENSTRUAL HISTORY:Color: bright red(1)Menstrual Cycles: irregular (1)Bleeding: normal(1)Additional Past Menstrual History: 3 wk pp- bottle feeding(1) SEXUAL AND CONTRACEPTION HISTORY:Sexual Activity: active (1)Sexual Partner: single partner(1)Contraception Method: tubal ligation(1)Sexually Transmitted Infection Past History: present (1) SUBSTANCE USE:? Smoking Statusnever smoker(1)? Alcohol Use Statusalcohol never used (1)? Street Drug/Inhalant/Medication Use Statusstreet drug/inhalants/medicationne jermain used (1)? Exposure to Second Hand Smokenone (1) PRIMARY CARE PHYSICIAN:? Primary Care Physicianrona(2) HISTORY ATTESTATION:? AttestationI have reviewed and confirmed nurse's/medic's notes for patient'smedications, allergies, medical history, and surgical history VITAL SIGNS:2. Vital Signs:Date/TimeTemp (degrees F) (degrees F)Temp (degrees C) (degrees C)TemperatureSite SiteHeart Rate (beats/min) beats/minBP Systolic (mm Hg) [id number] 13:[id number] Diastolic (mm Hg) Diastolic (mm Hg)BP Mean (mm Hg) Mean (mm Hg)Respiration (breaths/min) Respiration (breaths/min)SpO2 (%) SpO2 (%)Height(ft) Height (ft)[id number] (remainder in inches) Height (in)Height (cm) Height (cm)BSA (m2)BMI(kg/m2) BMI (kg/m2)Weight (lbs) Weight (lbs)4162.52.0234.3200Weigh t (kg) Weight (kg)Presence of PainPain Mmdxjw59.7complains of pain/discomfort6/10 PHYSICAL EXAMINATION: ? General Appearance CommentsWell appearing patient with no acute distress.? Ears, Nose, Mouth and Throat CommentsBilateral auditory canals arenon-inflammed and non-reddened. Bilateral TM's are pearly haddad with good lightreflex. Septum is midline without deviation. Turbinates are non-inflammed andnot reddened. Mucous membranes are moist. All teeth are intact. Uvula ismidline without deviation and rises upon phonation. Tonsils are 1+ withoutexudate bilaterally.? Respiratory CommentsRespirations are spontaneous and nonlabored. Lung soundsare clear in all soto anteriorly and posteriorly.? Cardiovascular CommentsRRR without murmur, click, or rub. LAB AND MICRO RESULTS (24 hours):General Microbiology:23-Jul-2018 13:25 Rapid StrepResultValueRangeRapid StrepNegative[Negative] PROGRESS NOTE: ? ED Course:Patient was seen and evaluated by Dr. English. At this time, we feel she hasan acute viral URI. Therefore, I do not feel antibiotics are clinicallyindicated. Instructed to take Tylenol or Advil gmht-ban-qbwlcub as needed forfever and/or pain. No contraindications to NSAIDs are noted. Given aprescription for an Albuterol inhaler. Follow-up with her doctor in 4 days.Return if worse in any way. Discharged in stable condition with computerinstructions. Diagnostic Impression: 1. Acute viral URI. 2. Prescription therapy DIAGNOSES/PROBLEM LIST:Problem QchvMhbsBkksvlGDT-9BLI-56? Acute URIED EbJkggbg978.9J06.9 DISCHARGE DISPOSITION:? Disposition: discharged? Discharge Type: home CONDITION ON DISCHARGE:? Condition on Dispositionstable MEDICATION RECONCILIATION AND DISCHARGE MEDS:* Outpatient Medication Status not yet specified CO-SIGN/ATTESTATION:Attesta tion: This is a shared visit. I have reviewed the LIP?s encounter note,approve the LIP?s documentation and provide the following additionalinformation from my personal encounter.Shared Visit Documentation: See comments/additional findings belowComments/ Additional Findings:Chart was dictated with the use of [employer] software within the framework of [employer] electronic medical records software. Attempts were made to edit inreal time, given multiple time constraints. I personally evaluated patient and worked with Erasmo Duque, ARMEN-SOAKING PITS SUPERVISOR, [facility] patient in the department, including supervision of thetreatment plan and diagnosis. Electronic Signatures:Malachi English) (Signed 24-Jul-2018 20:47)Authored: AttestationCo-Signer: Time Seen/ED Notes, Chief Complaint/Reason for Visit via TriageNote, Patient History, History Attestation, Physical Exam, Lab Results Review,Progress Note, ED Disposition (REQUIRED), AttestationErasmo Duque (TELEPHONE CLERKS SUPERVISOR-SOAKING PITS SUPERVISOR) (Signed 23-Jul-2018 14:37)Entered: Time Seen/ED Notes, Chief Complaint/Reason for Visit via Triage Note,Patient History, History Attestation, Vital Signs, Physical Exam, Lab ResultsReview, Progress Note, ED Disposition (REQUIRED), AttestationAuthored: Time Seen/ED Notes, Chief Complaint/Reason for Visit via TriageNote, Patient History, History Attestation, Physical Exam, Lab Results Review,Progress Note, ED Disposition (REQUIRED), Attestation Last Updated: 24-Jul-2018 20:47 by Malachi English) References:1. Data Referenced From Triage Note, Emergency 07/23/2018 1:00 PM2. Data Referenced From Provider Note - ED 06/07/2018 1:40 PM Normal [facility] Rstpon 07-23-2018 S. pyogenes Ag IA Ql (Unsp spec) Negative Normal Negative [facility] Auto Diffon 06-07-2018 Basophils/100 WBC Auto (Bld) 0.3 % Normal 0.0-2.4 [facility] Basophils/100 WBC Auto (Bld) 0.0 x10E9/L Normal 0.0-0.2 [facility] Eosinophils Auto #/vol (Bld) 0.1 10*3/uL Normal 0.0-0.5 [facility] Eosinophils/100 WBC Auto (Bld) 2.0 % Normal 0.7-6.5 [facility] Lymphocytes Auto #/vol (Bld) 1.7 10*3/uL Normal 1.1-3.5 [facility] Lymphocytes/100 WBC Auto (Bld) 27.7 % Normal 17.0-44.0 [facility] Monocytes Auto #/vol (Bld) 0.6 10*3/uL Normal 0.3-1.0 [facility] Monocytes/100 WBC Auto (Bld) 9.3 % Normal 5.3-12.5 [facility] Neutrophils Auto #/vol (Bld) 3.6 10*3/uL Normal 1.8-7.5 [facility] Neutrophils/100 WBC Auto (Bld) 60.7 % Normal 41.0-73.8 [facility] BMPon 06-07-2018 Anion gap 3 molar conc 11.0 mmol/L Normal 5.0-19.0 [facility] Bun/CretRatio 12.7 Normal [facility] Calcium mass conc 8.9 mg/dL Normal 8.1-10.1 [facility] Chloride molar conc 103 mmol/L Normal 98-107 [facility] CO2 molar conc 22 mmol/L Normal 22-32 [facility] Creatinine mass conc 0.55 mg/dL Low 0.60-1.30 [facility] Glucose mass conc 97 mg/dL Normal 70-100 [facility] Osmolality-Calc 270 mOsm/kg Normal [facility] Potassium molar conc 3.8 mmol/L Normal 3.4-5.1 [facility] Sodium molar conc 136 mmol/L Normal 136-144 [facility] Urea nitrogen mass conc 7 mg/dL Low 8-26 [facility] Mgon 06-07-2018 Magnesium mass conc 1.6 mg/dL Low 1.8-2.5 [facility] Provider Note - EDon 018 Protein mass conc TIME SEEN:? Time Yhxf09-Lum-4820 13:29 CHIEF COMPLAINT/REASON FOR VISIT:? REASON FOR VISITPossible Seizure(1) HISTORY OF PRESENT ILLNESS - ADDITIONAL:? Gdaokcpag14-aeir-xrn female presents with a complaint of seizure disorder.Patient stated that she began staring off and was unable to move and then fellforward onto the floor. She had a seizure that reportedly lasted anywhere xxat04-55 seconds. She was confused upon awakening. She did not bite her tongue.She had no loss of bladder or bowel control. The paramedics arrived they wereable to establish an IV and transported to the hospital. Patient states thatshe is supposed to be on Keppra for seizure disorder, but has not taken it for3 years. Denies any headache, visual changes. She's had no recent illnesses,cough, cold, vomiting, diarrhea or urinary symptoms. She does have apresumptive diagnosis of MS and is supposed to follow-up with the [facility]. ALLERGIES: Allergies:? Demerol HCl: Drug, seizure, Other(See Desc), Active? TraMADOL Hydrochloride: Drug, Hives, Active? amoxicillin: Drug, Hives, Active? penicillin: Drug, Hives, Anaphylaxis, Active? Demerol HCl: Drug, Hives, Anaphylaxis, Active? tramadol: Drug, Hives, Active OUTPATIENT MEDICATION, REVIEW/ADD MEDICATIONS:* Patient Currently Takes Medications as of 21-Apr-2018 16:57 documented inStructured Notes PAST MEDICAL HISTORY: : SEXUALLY TRANSMITTED DISEASE(1)Neuro/Psych: EPILEPSY(1)Additional Past Medical History: Multiple Sclerosis(1) PAST SURGICAL HISTORY: /Data Modeling Specialist/Breast: SECTION(1)GI/Hepatobiliary: CHOLECYSTECTOMY(1) FAMILY HISTORY:Family History: reviewed and found noncontributory (1) PAST MENSTRUAL HISTORY:Color: bright red(1)Menstrual Cycles: irregular (1)Bleeding: normal(1)Additional Past Menstrual History: 3 wk pp- bottle feeding(1) SEXUAL AND CONTRACEPTION HISTORY:Sexual Activity: active (1)Sexual Partner: single partner(1)Contraception Method: tubal ligation(1)Sexually Transmitted Infection Past History: present (1) SUBSTANCE USE:?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 encounter procedure Ashish Hawley [facility] [place] Start: 06-27-2023 End: 06-27-2023 Emergency department patient visit Kristie Saeed Facility:[facility] Start: 06-27-2023 End: 06-27-2023 Emergency department patient visit Kristie Saeed [facility] Start: 06-26-2023 Result Review Referring Prov ider Unknown [facility] Work Phone: Start: 06-24-2023 Chart Update Referring Prov ider Unknown [facility] Work Phone: Start: 06-18-2023 Office outpatient ne w 45 minutes Referring Provider Unknown - [facility] Work Phone: Start: 06-18-2023 Patient encounter procedure Referring Provider Unknown - [facility] Work Phone: Start: 06-18-[address] Naz Esposito Facility:[id number] Start: 06-13-2023 End: 06-13-2023 Emergency department patient visit Cooper Juarez Facility:[facility] Start: 06-13-2023 End: 06-13-2023 Emergency department patient visit Cooper Juarez [facility] Start: 06-13-2023 Telephone encounter Azra Holley RN Hematology/Oncology Comment on above: Derm Problem; Patien t Question Start: 06-10-2023 End: 06-10-2023 Emergency department patient visit Ashish Cruz Facility:[facility] Start: 06-10-2023 End: 06-10-2023 Emergency department patient visit Ashish Manuele [facility] Start: 05-07-2023 End: 05-07-2023 ambulatory Maru Kramer Other [facility] Other Start: 05-07-2023 Telephone encounter Maru Kramer [facility] [employer] Start: 04-08-2023 End: 04-08-2023 Emergency department patient visit Katherine Zamarripa Facility:[facility] Start: 04-08-2023 End: 04-08-2023 Emergency department patient visit MD Maru Kramer Work Phone: [facility] Work Phone: Start: 04-07-2023 End: 04-07-2023 ambulatory Justina Liz Other [facility] Other Start: 04-07-2023 Telephone encounter Justina Agusto [facility] Start: 03-26-2023 ambulatory Chu Rios RN [facility] Start: 03-26-2023 Patient encounter procedure Chu Rios RN [facility] Start: 03-17-2023 End: 03-17-2023 ambulatory Maru Kramer Other [facility] Other Start: 03-17-2023 Telephone encounter Maru Kramer [facility] Start: 03-13-2023 End: 03-13-2023 ambulatory Maru Kramer Other [facility] Other Start: 03-13-2023 Telephone encounter Maru Kramer [facility] Start: 03-12-2023 Office outpatient ne w 45 minutes Maru Kramer [facility] Start: 03-12-2023 End: 03-12-2023 ambulatory Maru Kramer [facility] Work Phone: Start: 03-12-2023 End: 03-12-2023 Departed Referred MD Maru Kramer Work Phone: [facility] [place] Work Phone: Start: 10-06-2022 End: 10-06-2022 ambulatory BAUDILIO OTT . Facility: Start: 08-14-2022 Telephone encounter Timur bernard MD Work Phone: General Surgery Comment on above: Release Of Medical R ecords Start: 07-01-2022 End: 07-01-2022 ambulatory QIANA GUNDERSON . Facility: Start: 02-18-2022 End: 02-18-2022 Patient encounter procedure Kimberley Laurence [facility] Start: 09-25-2018 End: 09-25-2018 Emergency department patient visit NONE [facility] Start: 07-23-2018 End: 07-23-2018 Emergency department patient visit NONE [facility] Start: 06-07-2018 End: 06-07-2018 Emergency department patient visit NONE [facility] Start: 04-21-2018 End: 04-21-2018 Emergency department patient visit [facility] Start: 10-07-2017 Ambulatory UNKNOWN PROVIDER [facility] Start: 10-07-2017 [facility] Date Procedure Procedure Detail Performing Clinician Start: 04-08-2023 Plain chest X-ray MD Ehsan Kramer Work Phone: Start: 03-12-2023 Aerobic microbial culture MD Maru Kramer Work Phone: Start: 03-12-2023 Anaerobic microbial culture MD Maru Kramer Work Phone: Start: 03-12-2023 Investigation of tra nsfusion reaction MD Maru Kramer Work Phone: Start: 06-18-2016 Ligation of fallopian tube [place] Start: 01-27-2009 gallbladder Kimberley Dowelll er section Kimberley Miroslava r section Referring P rovider Unknown Comment on above: x2; Cholecystectomy Referring Pr ovider Unknown Plan of Treatment Date Care Activity Detail Author Start: 2036 Zoster Vaccines (1 of 2) Zoste r Vaccines (1 of 2) [facility] Start: 05-30-2023 Influenza vaccination [facility] Start: 04-28-2023 End: 04-28-2023 Patient encounter procedure 04/28/2023 12:00 PM EDT Office Visit [facility] [address] [place] [address] Anselmo Calvillo MD [address] [place] [address] [facility] Start: 03-12-2023 Aerobic Culture Aerobic Culture [facility] Start: 03-12-2023 Anaerobic Culture Anaerobic Culture [facility] Start: 03-12-2023 Microscopic observat ion [Identifier] in Unspecified specimen by Gram stain [facility] Start: 03-12-2023 [facility] Start: 09-29-2022 [facility] Start: 05-30-2022 Influenza vaccination INFLUENZA (#1) [facility] Start: 04-15-2022 COVID-19 Vaccine (2 - Booster for Ramandeep series) COVID-19 Vaccine (2 - Booster for Ramandeep series) [facility] Start: 09-29-2021 [facility] Start: 2016 HPV TESTING HPV TESTING [facility] Start: 2016 Screening for malign ant neoplasm of cervix [facility] Start: 2007 PAP TESTING PAP TESTING [facility] Start: 2007 Screening for malign ant neoplasm of cervix Pap Smear [facility] Start: 2005 DTaP/Tdap/Td Vaccine s (1 - Tdap) DTaP/Tdap/Td Vaccines (1 - Tdap) [facility] Start: 2005 Urine microalbumin profile [facility] Start: 2004 HEPATITIS C SCREENING HEPATITIS C [facility] Start: 2004 Hepatitis C screening Hepatitis C [facility] Start: 2004 HIV SCREENING HIV SCREENING [facility] Start: 1998 [facility] Start: 1987 MMR Vaccines (1 of 1 - Standard series) MMR Vaccines (1 of 1 - Standard series) [facility] Start: 1987 Varicella vaccination Varicell a Vaccines (1 of 2 - 2-dose childhood series) [facility] Start: 02-20-1987 COVID-19 VACCINE (#1) COVID-19 VACCI NE (#1) [facility] Start: 1986 HEPATITIS B (1 of 3 - 3-dose series) HEPATITIS B (1 of 3 - 3-dose series) [facility] Start: 1986 Hepatitis B Vaccine (1 of 3 - 3-dose series) Hepatitis B Vaccine (1 of 3 - 3-dose series) [facility] Start: 1986 Hepatitis B Vaccines (1 of 3 - 3-dose series) Hepatitis B Vaccines (1 of 3 - 3-dose series) [facility] Start: 1986 HIV screening HIV Screening [facility] Bacteria identified in Unspecified specimen by Aerobe culture [facility] Bacteria identified in Unspecified specimen by Anaerobe culture [facility] Patient Education Chest Pain [facility] Work Phone: Patient referral [facility] Work Phone: [facility] Immun[facility] Immunization Date Immunization Notes Care Provider Fa cility 02-18-2022 COVID-19 vaccine, vector-nr, rS-Ad26, PF, 0.[address] [facility] 03-07-2020 influenza virus vaccine, unspecified formulation Azra Holley RN [facility] 04-04-2012 tetanus toxoid, reduced diphtheria toxoid, and acellular pertussis vaccine, adsorbed Kimberley [facility] Comment on above: Reason for Medicatio n: Other (see comment) NEGATED: Highlighted row has not occurred!07-01-2023 influenza virus vaccine, unspecified formulation Ashish Hawley [facility] [place] Payers Date Payer Category Payer Unknown [id number] 2023 Unknown [id number] 2023 Self-pay [id number] 2022 Medicaid [id number] 2. [id number] 2017 Medicaid [id number] 1985 Unknown [id number] 2.16.8 [id number] 1986 Unknown [id number] 2.16.8 [id number] 1986 Unknown [id number] 2.16.8 [id number] 1986 Unknown [id number] 2.16.8 [id number] 1986 Unknown [id number] 2.16.84 [id number] 1986 Unknown [id number] 2.16.84 [id number] 1986 Unknown [id number] 2.16. [id number] 1986 Unknown [id number] 2.16.8 [id number] 1986 Unknown [id number] 2.16.8 [id number] 1986 Unknown [id number] 2.16.8 [id number] 1986 Unknown [id number] 2.16.8 [id number] 1959 Private Health Insurance [id number] 1959 Unknown [id number] Unknown Unknown [id number] 2.16.8 [id number] Unknown [id number] 2.16.8 [id number] Social History Date Type Detail Facility Start: 11-13-2021 End: 07-01-2023 Tobacco smoking status [facility]-smoker (finding[facility] Start: 09-17-2022 End: 03-26-2023 Sex Assigned At Female Heather [facility] End: 10-05-2018 History of tobacco use Current smoker [facility] End: 10-05-2018 History of tobacco use Cigarette Smoker [facility] Start: 02-15-2021 Tobacco use and exposure Smokeless tobacco non-user [facility] Start: 03-12-2021 End: 09-17-2022 Alcohol intake Current non-drinker of alcohol (finding) [facility] Start: 06-18-2017 Tobacco Comment 3 cig/day [facility] Start: 1985 Sex Assigned At Female [facility] Start: 07-03-2020 Tobacco smoking stat [facility] Current some day smoker [facility] Start: 09-17-2022 End: 03-26-2023 History of Social function [facility] Start: 1985 Sex Assigned At Not on file S [facility] Start: 04-08-2023 Tobacco smoking stat [facility] Never smoked tobacco (finding) [facility] Adult Depression Screening Assessment 0 [facility] Start: 06-12-2021 Gender identity Identifies as female gender (finding) [facility] Functional Status Date Assessment Result Facility 06-27-2023 Functional Status N/A [facility] 06-13-2023 Functional Status N/A [facility] 06-10-2023 Functional Status N/A [facility] Clinical Notes 08-14-2022 to 06-27-2023 Note Date & Type Note Facility 06-27-2023 Hospital Discharg e instructions Patient Education 06/27/2023 12:02:34 Cellulitis, Adult Cellulitis, Adult Cellulitis is a skin infection. The infected area is usually warm, red, swollen, and tender. This condition occurs most often in the arms and lower legs. The infection can travel to the muscles, blood, and underlying tissue and become serious. It is very important to get treated for this condition. What are the causes? Cellulitis is caused by bacteria. The bacteria enter through a break in the skin, such as a cut, burn, insect bite, open sore, or crack. What increases the risk? This condition is more likely to occur in people who: Have a weak body defense system (immune system). Have open wounds on the skin, such as cuts, hairston, bites, and scrapes. Bacteria can enter the body through these open wounds. Are older than 60 years of age. Have diabetes. Have a type of long-lasting (chronic) liver disease (cirrhosis) or kidney disease. Are obese. Have a skin condition such as: ?Itchy rash (eczema). ?Slow movement of blood in the veins (venous stasis). ?Fluid buildup below the skin (edema). Have had radiation therapy. Use IV drugs. What are the signs or symptoms? Symptoms of this condition include: Redness, streaking, or spotting on the skin. Swollen area of the skin. Tenderness or pain when an area of the skin is touched. Warm skin. A fever. Chills. Blisters. How is this diagnosed? This condition is diagnosed based on a medical history and physical exam. You may also have tests, including: Blood tests. Imaging tests. How is this treated? Treatment for this condition may include: Medicines, such as antibiotic medicines or medicines to treat allergies (antihistamines). Supportive care, such as rest and application of cold or warm cloths (compresses) to the skin. Hospital care, if the condition is severe. The infection usually starts to get better within 1 2 days of treatment. Follow these instructions at home: Medicines Take arqj-zye-szabjzz and prescription medicines only as told by your health care provider. If you were prescribed an antibiotic medicine, take it as told by your health care provider. Do not stop taking the antibiotic even if you start to feel better. General instructions Drink enough fluid to keep your urine pale yellow. Do not touch or rub the infected area. Raise (elevate) the infected area above the level of your heart while you are sitting or lying down. Apply warm or cold compresses to the affected area as told by your health care provider. Keep all follow-up visits as told by your health care provider. This is important. These visits let your health care provider make sure a more serious infection is not developing. Contact a health care provider if: You have a fever. Your symptoms do not begin to improve within 1 2 days of starting treatment. Your bone or joint underneath the infected area becomes painful after the skin has healed. Your infection returns in the same area or another area. You notice a swollen bump in the infected area. You develop new symptoms. You have a general ill feeling (malaise) with muscle aches and pains. Get help right away if: Your symptoms get worse. You feel very sleepy. You develop vomiting or diarrhea that persists. You notice red streaks coming from the infected area. Your red area gets larger or turns dark in color. These symptoms may represent a serious problem that is an emergency. Do not wait to see if the symptoms will go away. Get medical help right away. Call your local emergency services (911 in the [place] Do not drive yourself to the hospital. Summary Cellulitis is a skin infection. This condition occurs most often in the arms and lower legs. Treatment for this condition may include medicines, such as antibiotic medicines or antihistamines. Take ygug-fcr-svfzbux and prescription medicines only as told by your health care provider. If you were prescribed an antibiotic medicine, do not stop taking the antibiotic even if you start to feel better. Contact a health care provider if your symptoms do not begin to improve within 1 2 days of starting treatment or your symptoms get worse. Keep all follow-up visits as told by your health care provider. This is important. These visits let your health care provider make sure that a more serious infection is not developing. This information is not intended to replace advice given to you by your health care provider. Make sure you discuss any questions you have with your health care provider. Document Revised: 06/27/2022 Document Reviewed: 06/27/2022 [employer] Patient Education 2022 [employer]. 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) Orders: clindamycin, 300 mg = 2 cap(s), Oral, QID, X 10 day(s), # 80 cap(s), Refills(s) 0, Pharmacy: [facility]/pharmacy #[id number], 162, cm, 06/27/23 10:15:00 EDT, Height/Length Dosing, 77.5, kg, 06/27/23 10:15:00 EDT, Weight Dosing Future Appointments Appointment Date:07/01/2023 10:00:00 AM Scheduled Provider:Ashish Hawley MD Location:[facility] Appointment Type: Established 15 Appointment Date:07/02/2023 01:15:00 PM Scheduled Provider: Location:.MAMMOGRAM Appointment Type:MA Diagnostic (FT) Appointment Date:07/02/2023 02:30:00 PM Scheduled Provider: Location:.ULTRASOUND Appointment Type:US Breast (FT) Future Scheduled Tests Radiology* US Breast Unilateral Rt Complete 07/02/23 * MA Mamm Diag w/CAD if perf and 3D Deepak 07/02/23 [facility]09-23-2023 NoteMicrobiology PROCEDURE: Blood Culture Charcoal [R1] SOURCE: Blood BODY SITE: Wrist R COLLECTED DATE/TIME: 06/13/2023 19:30 EDT RECEIVED DATE/TIME: 06/13/2023 20:46 EDT START DATE/TIME: 06/13/2023 20:46 EDT FREE TEXT SOURCE: IV start Mikhail VALLES, Jose Ramirez. Mikhail VALLES, Jose Ramirez. FINAL REPORTS Final Report [] Verified Date/Time: 06/21/2023 07:00 EDT No growth at 7 days. Performing Locations R1: This test was performed at: [facility], [address] [place] [address], [id number] , , KexxxqUniversity [facility]als [facility] CenterComment on above:Performed By: #### [id number] ####[facility] [address] [place], [place] [id number] NoteMicrobiology PROCEDURE: Blood Culture Charcoal [R1] SOURCE: Blood BODY SITE: Arm R COLLECTED DATE/TIME: 06/13/2023 19:03 EDT RECEIVED DATE/TIME: 06/13/2023 19:20 EDT START DATE/TIME: 06/13/2023 19:20 EDT FREE TEXT SOURCE: Mikhail VALLES, Jose Ramirez. Mikhail VALLES, Jose Ramirez. FINAL REPORTS Final Report [] Verified Date/Time: 06/20/2023 20:25 EDT No growth at 7 days. Performing Locations R1: This test was performed at: [facility], [address] [place] [address], [id number], GjywxrUniversity Hospitals Cleveland Medical CenterComment on above:Performed By: #### [id number] ####[facility] [address] [place], [place] [id number] Miscellaneous Notes* Telephone Encounter - Evette José - 06/16/2023 8:14 AM EDT Called and scheduled patient, Jun 19 at 11:15. Due to patients work schedule this will work good for her. * Telephone Encounter - Evette José - 06/13/2023 3:08 PM EDT Taty, could you help me with this one for a time? Thank you * Telephone Encounter - Azra Holley RN - 06/13/2023 2:24 PM EDT Called patient and updated her that mid level was aware. She is agreeable to a follow up appt scheduled next week. The only day she can come in is Friday due to her work schedule. Reinforced the need to continue to take ATBX daily as prescribed and she has verbalized understanding Emergent S/S reviewed Forwarded to clerical pool to schedule Azra Holley RN * Telephone Encounter - Gloria Babcock APRN.CNP - 06/13/2023 2:05 PM EDT Please get her scheduled with Dr. Porras. Try for a longer appointment. Thanks, Gloria Babcock APRN.SOAKING PITS SUPERVISOR * Telephone Encounter - Azra Holley RN - 06/13/2023 12:07 PM EDT Patient call back. She states that it has been over a year since she has seen Dr Porras notes whenever I have an appointment I am sick noting she has had to cancel in the past. She says that she has bleeding lesions around her nipple she was seen @ED 06/11 and was ordered antibiotics. States they don't work when asked if she is taking them she says yea but can not recallthe name of the antibiotic, notes she was ordered topical and oral. She currently has serous/purulent drainage to the Rt breast/changing band aid hourly, is concerned with losing her job, and would like to be seen here for the infection with possible surgical optionsas the ED told her the breast needs removed states she has a PCP notes they do nothing she was made aware that we do not manage ID or surgical here, diagnostics thus far are benign, and I will forward for recommendations. Azra Holley RN All past appointments back to 2020 were either no show or cancelled * Telephone Encounter - Azra Holley RN - 06/13/2023 11:57 AM EDT Patient has left VM to notify that she was seen in the ED yesterday with a bleeding breast that is still bleeding today, notes that she has been seen here on and off was told @ED her breast needs to be removed . She is requesting a referral. Azra Holley RN documented in this encounterCleveland [id number] Hospital Discharge instructions Patient Education 06/13/2023 21:11:14 Cellulitis, Adult, Gcxf-ek-Itlp Cellulitis, Adult Cellulitis is a skin infection. The infected area is often warm, red, swollen, and sore. It occurs most often in the arms and lower legs. It is very important to get treated for this condition. What are the causes? This condition is caused by bacteria. The bacteria enter through a break in the skin, such as a cut, burn, insect bite, open sore, or crack. What increases the risk? This condition is more likely to occur in people who: Have a weak body defense system (immune system). Have open cuts, hairston, bites, or scrapes on the skin. Are older than 60 years of age. Have a blood sugar problem (diabetes). Have a long-lasting (chronic) liver disease (cirrhosis) or kidney disease. Are very overweight (obese). Have a skin problem, such as: ?Itchy rash (eczema). ?Slow movement of blood in the veins (venous stasis). ?Fluid buildup below the skin (edema). Have been treated with high-energy rays (radiation). Use IV drugs. What are the signs or symptoms? Symptoms of this condition include: Skin that is: ?Red. ?Streaking. ?Spotting. ?Swollen. ?Sore or painful when you touch it. ?Warm. A fever. Chills. Blisters. How is this diagnosed? This condition is diagnosed based on: Medical history. Physical exam. Blood tests. Imaging tests. How is this treated? Treatment for this condition may include: Medicines to treat infections or allergies. Home care, such as: ?Rest. ?Placing cold or warm cloths (compresses) on the skin. Hospital care, if the condition is very bad. Follow these instructions at home: Medicines Take mjlg-won-hxmfaaf and prescription medicines only as told by your doctor. If you were prescribed an antibiotic medicine, take it as told by your doctor. Do not stop taking it even if you start to feel better. General instructions Drink enough fluid to keep your pee (urine) pale yellow. Do not touch or rub the infected area. Raise (elevate) the infected area above the level of your heart while you are sitting or lying down. Place cold or warm cloths on the area as told by your doctor. Keep all follow-up visits as told by your doctor. This is important. Contact a doctor if: You have a fever. You do not start to get better after 1 2 days of treatment. Your bone or joint under the infected area starts to hurt after the skin has healed. Your infection comes back. This can happen in the same area or another area. You have a swollen bump in the area. You have new symptoms. You feel ill and have muscle aches and pains. Get help right away if: Your symptoms get worse. You feel very sleepy. You throw up (vomit) or have watery poop (diarrhea) for a long time. You see red streaks coming from the area. Your red area gets larger. Your red area turns dark in color. These symptoms may represent a serious problem that is an emergency. Do not wait to see if the symptoms will go away. Get medical help right away. Call your local emergency services (911 in the [place] Do not drive yourself to the hospital. Summary Cellulitis is a skin infection. The area is often warm, red, swollen, and sore. This condition is treated with medicines, rest, and cold and warm cloths. Take all medicines only as told by your doctor. Tell your doctor if symptoms do not start to get better after 1 2 days of treatment. This information is not intended to replace advice given to you by your health care provider. Make sure you discuss any questions you have with your health care provider. Document Revised: 06/27/2022 Document Reviewed: 06/27/2022 [employer] Patient Education 2022 [employer]. Follow Up Care 06/13/2023 17:38:32 With:[facility] [phone] [facility] [phone] [facility] [phone] Address:Unknown When:06/16/2023 20:33:39 With:Dr Meredith Hairston [phone] [facility] [phone] Address:Unknown When:06/16/2023 20:33:06 With:XXXX NONE Address: [place] When:06/16/2023 20:32:59 [facility]09-15-2023 Evaluation + Plan noteExtracted from: Title:ED Note Author:Mikhail VALLES, Jose Ro te:06/13/23 Breast pain (N64.4: Mastodyn ia) Cellulitis of right breast (N61.0: Mastitis without abscess) Orders: acetaminophen-oxycodone, 1 EA, Tab, Oral, Once, Stop date 06/13/23 20:25:00 EDT, STAT, Start date 06/13/23 20:25:00 EDT acetaminophen-oxycodone, 1 tab(s), Oral, q6hr for pain for 3 day(s), 15 tab(s), Refill(s) 0, [id number], 162, cm, 06/13/23 17:51:00 EDT, Height/Length Dosing, 6.5, kg, 06/13/23 17:51:00 EDT, Weight Dosing morphine, 4 mg = 2 mL, Injection, IV Push, Once, Stop date 06/13/23 18:50:00 EDT, STAT, Start date 06/13/23 18:50:00 EDT, 06/13/23 18:50:00 EDT ondansetron, 4 mg = 2 mL, Injection, IV Push, Once, Stop date 06/13/23 18:50:00 EDT, STAT, Start date 06/13/23 18:50:00 EDT, 06/13/23 18:50:00 EDT ondansetron, 12 mg = 3 tab(s), Tab-Dis, Oral, Once, Stop date 06/13/23 20:25:00 EDT, STAT, Start date 06/13/23 20:25:00 EDT, 06/13/23 20:25:00 EDT ondansetron, 4 mg = 1 tab(s), Oral, q8hr, PRN Nausea/Vomiting, # 12 tab(s), Refills(s) 0, Pharmacy: [facility]/pharmacy #[id number], 162, cm, 06/13/23 17:51:00 EDT, Height/Length Dosing, 6.5, kg, 06/13/23 17:51:00 EDT, Weight Dosing Automated Diff Basic Metabolic Panel Blood Culture Charcoal Blood Culture Charcoal CBC w/ Auto Diff eGFR Lactic Acid PT & PTT Troponin 0 Hr. XR Chest Single View Diagnostic Tests Pending * Blood Culture Charcoal 06/13/23 * Blood Culture Charcoal 06/13/23 [facility]09-12-2023 Hospital Discharge instructions Follow Up Care 06/10/2023 13:26:24 With:[facility] [phone] [facility] [phone] [facility] [phone] Address:Unknown When:06/13/2023 14:29:51 With:Dr Meredith Hairston [phone] [facility] [phone] Address:Unknown When:06/13/2023 13:59:24 With:KATHRYN MINAYA Address: [address] [place] [address] [place] [address]- [phone] Business (1) When:Within 3 Day(s) [facility]06-28-2023 Telephone encounter Note* Telephone Encounter - Chu Rios RN - 03/26/2023 4:53 PM EDT S: Caller spoke with [facility] nurse regarding multiple issues. B: Onset of symptoms/concern: Not an established patient A: Caller states she has been to several doctors but no one seems to be able to help her, calling regarding multiple issues, Hx- MS, looking for someone to possibly help her. R: Caller scheduled on 04/28/23 to establish care with Andreea Oliveira , insurance coverage verified. Patient placed on wait list in case of a cancellation. Reason for Disposition Requesting regular office appointment Protocols used: Information Only Call - No [id number] [id number] Miscellaneous Notes* Telephone Encounter - Chu Rios RN - 03/26/2023 4:53 PM EDT S: Caller spoke with [facility] nurse regarding multiple issues. B: Onset of symptoms/concern: Not an established patient A: Caller states she has been to several doctors but no one seems to be able to help her, calling regarding multiple issues, Hx- MS, looking for someone to possibly help her. R: Caller scheduled on 04/28/23 to establish care with Andreea Oliveira , insurance coverage verified. Patient placed on wait list in case of a cancellation. Reason for Disposition Requesting regular office appointment Protocols used: Information Only Call - No [id number] documented in this [place] [id number] Evaluation note* Encounter Date Diagnosis Assessment Notes Treatment Notes Treatment Clinical Notes Feb, Subareolar mass of right breast (ICD-10 - N63.41) antibiotic, diagnostic mamm, obtain notes from [facility]. Feb, MS (multiple sclerosis) (ICD-10 - G35) Establish with Neurologist in area Feb, Seizure (ICD-10 - R56.9) as above. [facility] Other [id number] Miscellaneous Notes* Telephone Encounter - Kat Valera - 08/14/2022 10:14 AM EST Nikky from Dr Ashish Paniagua's office called requesting records from Dr Hodges, office notes and images if any. # [phone] fax # [phone] Thank you. documented in this encounterBlanchard Valley Health SystemEvaluation + Plan note No data available for this section [facility] Care Evaluation + Plan note Future Appointments Appointment Date:07/16/2023 09:15:00 AM Scheduled Provider: Location:FT.MAMMOGRAM Appointment Type:MA Diagnostic (FT) Appointment Date:07/16/2023 10:00:00 AM Scheduled Provider: Location:FT.ULTRASOUND Appointment Type:US Breast (FT) Future Scheduled Tests Radiology* US Breast Unilateral Rt Complete 07/16/23 * MA Mamm Diag w/CAD if perf and 3D Deepak 07/16/23 [facility] [place] Evaluation noteNo assessment information available [facility] Work Phone: Evaluation noteNo InformationNort [employer] Other History general Narrative - Reported* Type Description Date Medical History MS 2012 Medical History Epilepsy 2004 Medical History Asthma childhood Surgical History C-sect 2012 Surgical History C-sect 2016 Surgical History Cholocystectomy 2008 [facility] Other History general Narrative - Reported* Type Description Date Medical History MS 2012 Medical History Epilepsy 2004 Medical History Asthma childhood Surgical History C-sect 2011 Surgical History C-sect 2016 Surgical History Cholocystectomy 2008 Hospitalization History SEE SURGICAL HX [facility] Other Hospital Discharge instructions No data available for this section [facility] Discharge instructions Additional Instructions Avoid heavy lifting Apply moist compresses to your left side of your chest Tylenol or Naprosyn if needed for pain Follow with your PCP call tomorrow for appointment Please return here if you develop any shortness of breath numbness, tingling, unilateral weakness, dizziness or any otherFirelands [facility] Work Phone: Progress note No data available for this section [facility] (narrative) Referred by: Marleen LORENZO, Ashish Alvarenga [facility] [place] Summary Purpose Family History No Family History Records Found Relationship Condition Age at Onset Recorded Date/T stephan father Diabetes mellitus Unknown Epilepsy Unknown Not Specified Atrial fibrillation Unknown Unknown Family Member Name Dates Details No pertinent family history: Mother, Father(V49.89, Z78.9) Status:Active Unknown Family Member Name Dates Details No pertinent family history: Mother, Father(V49.89, Z78.9) Status:Active Unknown Family Member Name Dates Details No pertinent family history: Mother, Father(V49.89, Z78.9) Status:Active Unknown Family Member Name Dates Details No pertinent family history: Mother, Father(V49.89, Z78.9) Status:Active Advance Directives No Advanced Directives Records Found Advance Directive Response Recorded Date/ Time Advance Directives No March 22 4:37pm Reason for Referral Reason Dr. Crenshaw or Dr. Wayne Garvey office. Previously seen at [facility]. Not presently on med for seizures or MS. Diagnosis 1 MS (multiple scleros is) (G35) Referral Organization [facility] Referring Provider First Name Maru Referring Provider Last Name Kramer Referring Provider Specialty Family [facility] Referred Organization [facility] Referred Address [address],[phone] Referred Provider Specialty Neurology Referral Priority Routine Chief Complaint and Reason for Visit Chief Complaint N63.41 chest pain/low HR Additional Source Comments INFORMATION SOURCE (unrecogn ized section and content) DATE CREATED AUTHOR 03/23/2018 [facility] DATE CREATED AUTHOR AUTHOR'S ORGANIZ ATION 03/24/2018 [facility] DATE CREATED AUTHOR AUTHOR'S ORGANIZ ATION 03/25/2018 [facility] DATE CREATED AUTHOR AUTHOR'S ORGANIZ ATION 10/02/2018 [facility] DATE CREATED AUTHOR AUTHOR'S ORGANIZ ATION 03/07/2023 [facility] DATE CREATED AUTHOR AUTHOR'S ORGANIZ ATION 03/28/2023 [facility] DATE CREATED AUTHOR AUTHOR'S ORGANIZ ATION 04/09/2023 [facility] DATE CREATED AUTHOR AUTHOR'S ORGANIZ ATION 06/19/2023 [facility] DATE CREATED AUTHOR AUTHOR'S ORGANIZ ATION 06/20/2023 [facility] DATE CREATED AUTHOR AUTHOR'S ORGANIZ ATION 09/18/2023 [facility] Source Comments (unrecognize d section and content) In the event this informatio n is protected by the Federal Confidentiality of Alcohol and Drug Abuse Patient Records regulations: The Federal rules restrict any use of the information to criminally investigate or prosecute any alcohol or drug abuse patient.[facility] the event this information is protected by the Federal Confidentiality of Alcohol and Drug Abuse Patient Records regulations: The Federal rules restrict any use of the information to criminally investigate or prosecute any alcohol or drug abuse patient.[facility] Reason for Visit (unrecogniz ed section and content) Reason Comments Release Of Medical Records Reason Onset Date Comments New Patient 03/26/2023 Reason Comments Derm Problem Patient Question Care Teams (unrecognized sec tion and content) Galley Boy Relationship Specialty Start Date End Date Miesha Schaffer Jocelyn Solorzano [address] [place] [address] PCP - General Family Medicine 06/08/15 Kathryn Minaya [address] [place], [place] [phone] Referring Family Medicine 02/13/21 Ashish Hawley MD [address] [place] [address] General Surgery 08/14/22 Team Status: Inactive Member Role Status Dates Maru Kramer MD Attending Provider Active Team Status: Active Member Role Status Dates NON STAFF Primary Care Provider Active Team Status: Inactive Member Role Status Dates Maru Kramer MD Attending Provider Active NON STAFF Primary Care Provider Active Team Status: Inactive Member Role Status Dates NON STAFF Primary Care Provider Active Katherine Zamarripa APRN Emergency Provider Active Galley Boy Relationship Specialty Start Date End Date Fracisco Goodwin DO [address] [place] [address] PCP - General 10/08/22 Kathryn Minaya, THERMAL ENGINEER [address] [place] [address] Referring Family Medicine 02/13/21 Ashish Hawley MD [address] [place] [address] General Surgery 08/14/22 Goals (unrecognized section and content) Goals may be documented in a n alternate section FOR RECORDS PERTAINING TO PATIENTS WHO ARE OR HAVE BEEN ENROLLED IN A CHEMICAL DEPENDENCY/SUBSTANCEABUSE PROGRAM, SOME INFORMATION MAY BE OMITTED. This clinical summary was aggregated from multiple sources. Caution should be exercised in using it in the provision of clinical care. This summary normalizes information from multiple sources, and as a consequence, information in this document may materially change the coding, format and clinical context of patient data. In addition, data may be omitted in some cases. CLINICAL DECISIONS SHOULD BE BASED ON THE PRIMARY CLINICAL RECORDS. [employer] provides no warranty or guarantee of the accuracy or completeness of information in this document.
== END 2023-09-24 22:43 | disposition left against medical advice (07) ==
LOC: ER 21:39
PROVIDERS: Emergency Provider Emergency Medicine
DX: Z53.21 Procedure and treatment not carried out due to patient leaving prior to being seen by health care provider (principal)

== ENCOUNTER 2024-01-20 13:10 | Emergency (ER) | payer OTHER, SELFPAY ==
[2024-01-20 13:15] VITALS: BP 144/71; PULSE 52; TEMP 36.6; O2SAT 97; BMI 24.0
--- NOTE | 2024-01-20 13:29 | ECG_ITS ---
The [facility] Test Date: 2024-01-20 Pat Name: RODY EGN Department: Room: - Gender: Female [employer]: : 1985 Requested By: Order Number: [id number] Reading MD: ZUHAIR KOCH Measurements Intervals [place] Rate: 46 P: 90 NM: 146 QRS: 94 QRSD: 82 T: 51 QT: 458 QTc: 415 Interpretive Statements 1130 Sinus bradycardia [address] elevation [address] & Twave abnormality 7102 Moderate right axis deviation 9140 abnormal rhythm ECG t Electronically Signed On 01-20-2024 18:06:44 EDT by ZUHAIR KOCH
--- NOTE | 2024-01-20 13:29 | XR_ITS ---
The [address] [address] Patient Name: RODY ENG MRN: [id number] date: 1985 Sex: F Assigned Patient Location: ER Current Patient Location: ER Accession/Order Number: [id number] Exam Date: 01/20/2024 13:45 Report Date: 01/20/2024 14:14 At the request of: ROBERT SINGH Procedure: XR chest 1V EXAMINATION: XR chest 1V HISTORY: Weakness COMPARISON: No relevant comparison available. TECHNIQUE: AP portable FINDINGS: LUNGS: No significant pulmonary parenchymal abnormalities. VASCULATURE: No increased pulmonary vasculature. PLEURA: No pneumothorax, effusion, or pleural thickening. CARDIAC: No cardiomegaly or cardiac silhouette abnormality. MEDIASTINUM: No visible mass or adenopathy. BONES: No fracture or visible bone lesion. OTHER: Negative. XR/XR chest 1V IMPRESSION: No acute cardiopulmonary process Electronically authenticated by: FRANCIS LADD Date: 01/20/2024 14:14
--- NOTE | 2024-01-20 13:31 | ED_ITS ---
Documented by User: BETTE Hurley 01/20/24 14:55 HPI - Weakness General Chief complaint: Nausea/Vomiting/Diarrhea Stated complaint: CHEST PAIN Time Seen by Provider: 01/20/24 13:23 Source: patient Mode of arrival: Wheelchair Limitations: no limitations History of Present Illness HPI Narrative: Patient is a 38-year-old female who presents to the emergency department for 2- day history of generalized weakness and generalized pain which she attributes to an MS exacerbation. She does not currently have a neurologist, she has a PCP who she has not made aware of any of her symptoms. She states for the last 2 days she has had nausea and vomiting due to diffuse pain in the shoulders, back, hips. She apparently reported chest pain to the registration desk but does not mention the chest pain until I specifically asked her about it and she states that she has had chest pain in addition to the shoulder pain, neck and back and hip pain. She states she has pain everywhere. She has not had any fevers, chills, cough, congestion. She is not concerned for . No medications taken prior to arrival. Patient states She thinks she just needs a Solu-Medrol injection. Related Data Previous Rx's ?Medication ?Instructions ?Recorded ondansetron 4 mg disintegrating 4 mg PO Q6H PRN nausea and 01/20/24 tablet vomiting #12 tabs promethazine 25 mg tablet 25 mg PO Q6H PRN nausea and 01/20/24 vomiting #12 tabs Allergies Allergy/AdvReac Type Severity Reaction Status Date / Time amoxicillin Allergy Severe Hives Verified 09/09/23 21:26 ciprofloxacin Allergy Severe Hives Verified 09/09/23 21:26 doxycycline Allergy Severe Hives Verified 09/09/23 21:26 Penicillins Allergy Severe Anaphylaxis Verified 09/09/23 21:26 sulfamethoxazole Allergy Severe Hives Verified 09/09/23 21:26 [From Bactrim] tramadol Allergy Severe Hives Verified 09/09/23 21:26 trimethoprim [From Bactrim] Allergy Severe Hives Verified 09/09/23 21:26 meperidine [From Demerol] AdvReac Severe Seizure Verified 09/09/23 21:26 Review of Systems ROS Constitutional Reports: fatigue and malaise; Denies: fever or chills Ears, nose, mouth, and throat Denies: throat pain or nasal congestion Cardiovascular Reports: chest pain Respiratory Denies: shortness of breath or cough Gastrointestinal Reports: nausea and vomiting; Denies: diarrhea Genitourinary Denies: painful urination Musculoskeletal Reports: back pain, neck pain and extremity pain Integumentary/Breast Denies: rash Neurological Denies: headache Endocrine Denies: excessive urination Hematologic/Lymphatic Denies: easy bruising or easy bleeding PFSH PFS Social History Smoking status: Never smoker Exam Narrative Exam Narrative: Gen.: Awake, alert, in no distress Head: Normocephalic, atraumatic ENT: Moist mucous membranes, poor dentition Respiratory: No respiratory distress, lungs clear bilaterally Cardio: Regular rate and rhythm Gastrointestinal: Abdomen is soft, nondistended and nontender to palpation Extremities: No edema Psych: Normal mood and affect Neuro: No focal neuro deficit, generalized weakness Skin: Warm, dry, intact Constitutional Vital Signs, click to edit/add: Last Vital Signs Temp 97.8 F 01/20/24 14:58 Pulse 54 L 01/20/24 14:58 Resp 18 01/20/24 14:58 BP 145/59 H 01/20/24 14:58 Pulse Ox 98 01/20/24 14:58 O2 Del Method Room Air 01/20/24 13:15 Course Vital Signs Vital signs: Vital Signs Temperature 97.8 F 01/20/24 13:15 Pulse Rate 52 L 01/20/24 13:15 Respiratory Rate 16 01/20/24 13:15 Blood Pressure 144/71 H 01/20/24 13:15 Pulse Oximetry 97 01/20/24 13:15 Oxygen Delivery Method Room Air 01/20/24 13:15 Temperature 97.8 F 01/20/24 14:58 Pulse Rate 54 L 01/20/24 14:58 Respiratory Rate 18 01/20/24 14:58 Blood Pressure 145/59 H 01/20/24 14:58 Pulse Oximetry 98 01/20/24 14:58 Oxygen Delivery Method Room Air 01/20/24 13:15 MDM - Weakness MDM Narrative Medical decision making narrative: Patient treated with IV fluids, Zofran. She requested ice chips immediately on arrival to the emergency department but was instructed not to have anything to eat or drink until the medication had time to work for her, she was given ice chips and reported a small episode of emesis after, additional Zofran was given. She declined admission for IV fluids and Antiemetics. She declined 7th grade social studies teacher evaluation for resources in the home. She would like to be discharged home. She was given Solu-Medrol at her request as she states this is consistent with previous MS exacerbations. She was given neurology follow-up as she states she does not like the local neurologist. Return to the ER if symptoms change or worsen. Zofran and Phenergan given for home. Patient was reevaluated by attending physician prior to discharge. Medical Records Attestation: I reviewed the patient's medical records. Lab Data Attestation: I reviewed the patient's lab results. Labs: Lab Results 01/20/24 01/20/24 Range/Units 12:30 13:39 WBC 10.3 (4.0-11.0) 10^3/uL RBC 4.35 (4.20-5.40) 10^6/uL Hgb 13.6 (12.0-16.0) g/dL Hct 39.6 (36.0-48.0) % MCV 91.0 (81.0-99.0) fL MCH 31.3 (26.7-34.0) pg MCHC 34.3 (29.9-35.2) g/dL RDW 12.1 (11.0-15.0) % Plt Count 313 (150-450) 10^3/uL MPV 10.5 (9.5-13.5) fL Neut % (Auto) 91.4 H (43.0-75.0) % Lymph % (Auto) 6.8 L (20.5-60.0) % [place] % (Auto) 1.3 L (1.7-12.0) % Eos % (Auto) 0.0 L (0.9-7.0) % Baso % (Auto) 0.1 L (0.2-2.0) % Neut # (Auto) 9.4 H (1.4-6.5) 10^3/uL Lymph # (Auto) 0.7 L (1.2-3.8) 10^3/uL [place] # (Auto) 0.1 L (0.3-0.8) 10^3/uL Eos # (Auto) 0.0 (0.0-0.7) 10^3/uL Baso # (Auto) 0.0 (0.0-0.1) 10^3/uL Abs Immat Gran (auto) 0.04 H (0.00-0.03) 10^3/uL Imm/Tot Granulo (auto) 0.4 (0.0-0.5) % ESR 22 H (<=20) mm/hr Sodium 140 (136-145) mmol/L Potassium 4.1 (3.5-5.1) mmol/L Chloride 102 (98-107) mmol/L Carbon Dioxide 24.5 (21.0-32.0) mmol/L Anion Gap 17.6 BUN 4.0 L (7.0-18.0) mg/dL Creatinine 0.59 (0.55-1.02) mg/dL Est GFR ( Amer) >60 (>=60) Est GFR (Non-Af Amer) >60 (>=60) BUN/Creatinine Ratio 6.8 Glucose 136 H (74-106) mg/dL Lactate 1.6 (0.4-2.0) mmol/L Calcium 9.5 (8.5-10.1) mg/dL Magnesium 1.7 L (1.8-2.4) mg/dL Total Bilirubin 2.4 H (0.2-1.0) mg/dL AST 26 (15-37) U/L ALT 15 (14-59) U/L Alkaline Phosphatase 74 (46-116) U/L Troponin I High Sens <4.0 L (4.0-51.3) pg/mL C-Reactive Protein <0.50 (<=0.50) mg/dL Total Protein 7.6 (6.4-8.2) g/dL Albumin 4.1 (3.4-5.0) g/dL Globulin 3.5 g/dL Albumin/Globulin Ratio 1.2 TSH 0.725 (0.358-3.740) uIU/mL Serum HCG, Qual Negative (NEGATIVE) Imaging Data Chest x-ray: Attestation: I have reviewed the pertinent imaging results. Radiologist's impression: ITS Impressions Chest X-Ray 01/20/24 13:29 IMPRESSION: No acute cardiopulmonary process Electronically authenticated by: FRANCIS LADD Date: 01/20/2024 14:14 Discharge Plan Discharge Stand Alone Forms: Portal Instructions Chief Complaint: Nausea/Vomiting/Diarrhea Clinical Impression: Weakness, Nausea & vomiting Patient Disposition: Home, Self-Care Time of Disposition Decision: 14:52 Condition: Good Prescriptions / Home Meds: New promethazine 25 mg tablet 25 mg PO Q6H PRN (Reason: nausea and vomiting) Qty: 12 0RF ondansetron 4 mg tablet,disintegrating 4 mg PO Q6H PRN (Reason: nausea and vomiting) Qty: 12 0RF Print Language: Croatian Instructions: Acute Nausea and Vomiting (ED), Weakness (ED) Referrals: [facility] [Primary Care Provider] - 1 week Discharge Date/Time: 01/20/24 15:13 Documented by User: Ross Castillo 01/20/24 15:41 HPI - Weakness General Chief complaint: Nausea/Vomiting/Diarrhea Stated complaint: CHEST PAIN Time Seen by Provider: 01/20/24 13:23 Related Data Previous Rx's ?Medication ?Instructions ?Recorded ondansetron 4 mg disintegrating 4 mg PO Q6H PRN nausea and 01/20/24 tablet vomiting #12 tabs promethazine 25 mg tablet 25 mg PO Q6H PRN nausea and 01/20/24 vomiting #12 tabs Allergies Allergy/AdvReac Type Severity Reaction Status Date / Time amoxicillin Allergy Severe Hives Verified 09/09/23 21:26 ciprofloxacin Allergy Severe Hives Verified 09/09/23 21:26 doxycycline Allergy Severe Hives Verified 09/09/23 21:26 Penicillins Allergy Severe Anaphylaxis Verified 09/09/23 21:26 sulfamethoxazole Allergy Severe Hives Verified 09/09/23 21:26 [From Bactrim] tramadol Allergy Severe Hives Verified 09/09/23 21:26 trimethoprim [From Bactrim] Allergy Severe Hives Verified 09/09/23 21:26 meperidine [From Demerol] AdvReac Severe Seizure Verified 09/09/23 21:26 PFSH PFSH Social History Smoking status: Never smoker Exam Constitutional Vital Signs, click to edit/add: Last Vital Signs Temp 97.8 F 01/20/24 14:58 Pulse 54 L 01/20/24 14:58 Resp 18 01/20/24 14:58 BP 145/59 H 01/20/24 14:58 Pulse Ox 98 01/20/24 14:58 O2 Del Method Room Air 01/20/24 13:15 Course Vital Signs Vital signs: Vital Signs Temperature 97.8 F 01/20/24 13:15 Pulse Rate 52 L 01/20/24 13:15 Respiratory Rate 16 01/20/24 13:15 Blood Pressure 144/71 H 01/20/24 13:15 Pulse Oximetry 97 01/20/24 13:15 Oxygen Delivery Method Room Air 01/20/24 13:15 Temperature 97.8 F 01/20/24 14:58 Pulse Rate 54 L 01/20/24 14:58 Respiratory Rate 18 01/20/24 14:58 Blood Pressure 145/59 H 01/20/24 14:58 Pulse Oximetry 98 01/20/24 14:58 Oxygen Delivery Method Room Air 01/20/24 13:15 MDM - Weakness MDM Narrative Medical decision making narrative: Patient treated with IV fluids, Zofran. She requested ice chips immediately on arrival to the emergency department but was instructed not to have anything to eat or drink until the medication had time to work for her, she was given ice chips and reported a small episode of emesis after, additional Zofran was given. She declined admission for IV fluids and Antiemetics. She declined 7th grade social studies teacher evaluation for resources in the home. She would like to be discharged home. She was given Solu-Medrol at her request as she states this is consistent with previous MS exacerbations. She was given neurology follow-up as she states she does not like the local neurologist. Return to the ER if symptoms change or worsen. Zofran and Phenergan given for home. Patient was reevaluated by attending physician prior to discharge. For this patient encounter I reviewed the mid-level provider?s documentation, medical decision-making and treatment plan, and I personally spent time with this patient. Shared APC visit, physician attestation: [id number]: This visit was performed by both a physician and an APC. I personally evaluated and examined the patient. I performed all aspects of MDM as documented. - DO Lidia Lab Data Labs: Lab Results 01/20/24 01/20/24 Range/Units 12:30 13:39 WBC 10.3 (4.0-11.0) 10^3/uL RBC 4.35 (4.20-5.40) 10^6/uL Hgb 13.6 (12.0-16.0) g/dL Hct 39.6 (36.0-48.0) % MCV 91.0 (81.0-99.0) fL MCH 31.3 (26.7-34.0) pg MCHC 34.3 (29.9-35.2) g/dL RDW 12.1 (11.0-15.0) % Plt Count 313 (150-450) 10^3/uL MPV 10.5 (9.5-13.5) fL Neut % (Auto) 91.4 H (43.0-75.0) % Lymph % (Auto) 6.8 L (20.5-60.0) % [place] % (Auto) 1.3 L (1.7-12.0) % Eos % (Auto) 0.0 L (0.9-7.0) % Baso % (Auto) 0.1 L (0.2-2.0) % Neut # (Auto) 9.4 H (1.4-6.5) 10^3/uL Lymph # (Auto) 0.7 L (1.2-3.8) 10^3/uL [place] # (Auto) 0.1 L (0.3-0.8) 10^3/uL Eos # (Auto) 0.0 (0.0-0.7) 10^3/uL Baso # (Auto) 0.0 (0.0-0.1) 10^3/uL Abs Immat Gran (auto) 0.04 H (0.00-0.03) 10^3/uL Imm/Tot Granulo (auto) 0.4 (0.0-0.5) % ESR 22 H (<=20) mm/hr Sodium 140 (136-145) mmol/L Potassium 4.1 (3.5-5.1) mmol/L Chloride 102 (98-107) mmol/L Carbon Dioxide 24.5 (21.0-32.0) mmol/L Anion Gap 17.6 BUN 4.0 L (7.0-18.0) mg/dL Creatinine 0.59 (0.55-1.02) mg/dL Est GFR ( Amer) >60 (>=60) Est GFR (Non-Af Amer) >60 (>=60) BUN/Creatinine Ratio 6.8 Glucose 136 H (74-106) mg/dL Lactate 1.6 (0.4-2.0) mmol/L Calcium 9.5 (8.5-10.1) mg/dL Magnesium 1.7 L (1.8-2.4) mg/dL Total Bilirubin 2.4 H (0.2-1.0) mg/dL AST 26 (15-37) U/L ALT 15 (14-59) U/L Alkaline Phosphatase 74 (46-116) U/L Troponin I High Sens <4.0 L (4.0-51.3) pg/mL C-Reactive Protein <0.50 (<=0.50) mg/dL Total Protein 7.6 (6.4-8.2) g/dL Albumin 4.1 (3.4-5.0) g/dL Globulin 3.5 g/dL Albumin/Globulin Ratio 1.2 TSH 0.725 (0.358-3.740) uIU/mL Serum HCG, Qual Negative (NEGATIVE) Imaging Data Chest x-ray: Radiologist's impression: ITS Impressions Chest X-Ray 01/20/24 13:29
--- OUTSIDE RECORDS SUMMARY | 2024-01-20 13:31 | XMS_ITS | CCD ---
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 antihistamines. ? Take jzjf-god-jrhrljj and prescription medicines only as told by [...] provider. Document Revised: 06/27/2022 Document Reviewed: 06/27/2022 Elsevier Patient Education ? 2022 [employer] Normal [facility] ED Patient Summaryon 023 ED Patient Summary (Inserted Image. Adali ble to display) [place] [id number] Patient Discharge Instructions Person Information Name: GUS MAIER Age: 37 Years Arrival Date: 06/27/2023 09:51:54 Discharge Diagnosis: Cellulitis of breast; Ulcer of skin of breast Primary Care Physician: NONE, XXXX Provider Information Primary Provider: Kristie Saeed M.D. Advanced Product Responsibility Liaison:Tyrese Thompson PA-C The exam and treatment you received in the Emergency Department were for an urgent problem and are not intended as complete care. It is important that you follow up with a doctor, nurse practitioner, or physician?s physiotherapist's assistant for ongoing care. If your symptoms become worse or you do not improve as expected and you are unable to reach your usual health care provider, you should return to the Emergency Department. We are available 24 hours a day. GUS MAIER has been given the following list of patient education materials, prescriptions and follow-up instructions: Follow-up Instructions: With: Address: When: Ashish Hawley In 3 days 06/30/2023 In the event that this physician does not participate in your insurance network, please consult with your insurance company to find a nearby participating provider. Patient Education Materials: Cellulitis, Adult A MESSAGE TO ALL PATIENTS REGARDING OPIOIDS PRESCRIPTION OPIOIDS: WHAT YOU NEED TO KNOW Prescription opioids can be used to help relieve blsnkctq-vb-esuwyr pain and are often prescribed following a [...] be struggling with addiction, tell your health career orientation teacher and ask for guidance or call SAMHSA?S National Helpline at 1-693-634-HELP. v Source: US Department of Health and Human Services/Center for D (more content not included)... Normal [facility] Prescriptions/Work Noteson 0 06-27-2023 Prescriptions/Work Notes [id number]#[id number]:127 Normal [facility] Cult, Misc + smearon 023 Bacteria identified Cx Nom (Unsp spec) Abnormal [facility] General Surgery-Silvano yusuf Work Phone: ED Note-Physicianon [...] seen by a breast doctor at the [facility] and they told her they cannot [...] to be closely followed at a tertiary care hospital breast center for definitive treatment. The patient states that she has been dissatisfied with the treatment through the [facility]. I discussed with her getting [facility] The patient was in agreement with this. I did give the patient information for both of these facilities in their br (more content not included)... Normal [facility] Comment on above: Result Comment: Elec tronically [...] was performed with nurse Chantal as my digital program manager. The right breast has area of small [...] and Complexity of Problems Differential Diagnosis: [] [facility] Data External documents reviewed: [] My [...] the patient, which were performed with a digital program manager, I did see these lesions on her [...] for 3 day(s), 15 tab(s), Refill(s) 0, [facility]/pharmacy #[id number], 162, cm, 06/13/23 17:51:00 EDT, [...] Nausea/Vomiting, # 12 tab(s), Refills(s) 0, Pharmacy: [facility]/pharmacy #[id number], 162, cm, 06/13/23 17:51: (more content not included)... Normal [facility] Comment on above: Result Comment: Elec tronically Signed By: Jose Elizondo PA-C\.br\Date and Time Signed: 06/13/23 23:37 EDT\.br\Electronically Co-Signed By: Cooper Juarez DO\.br\Date and Time Co-Signed: 06/14/23 01:23 EDT Auto Diffon 06-13-2023 Basophils/100 WBC (Bld) 0.4 % Normal 0.0-2.0 [facility] Comment on above: Order Comment: Order Added by Discern Expert. Performed By: #### 2 057372, 0666363, 1841928, 07435449, 84307171, 1467286, 02732668 ####[facility] [address] [place] [address] Basophils/Leukocytes Auto (Bld) [Pure # fraction] 0.0 E9/L Normal 0.0-0.2 [facility] Comment on above: Order Comment: Order Added by Discern Expert. Performed By: #### 2 811067, 9108892, 7817959, 54366952, 86156872, 7242224, 68970184 ####[facility] [address] [place] [address] Eosinophils/100 WBC (Bld) 1.5 % Normal 0.0-8.0 [facility] Comment on above: Order Comment: Order Added by Discern Expert. Performed By: #### 2 402282, 0445199, 5149424, 60107853, 16917963, 1217185, 05106217 ####[facility] [address] [place] [address] Eosinophils/Leukocytes Auto (Bld) [Pure # fraction] 0.1 E9/L Normal 0.0-0.5 [facility] Comment on above: Order Comment: Order Added by Discern Expert. Performed By: #### 2 727508, 0269423, 3091401, 18480742, 88643927, 1980807, 42146815 ####[place] [address] [place] [address] Lymphocytes/100 WBC (Bld) 15.5 % Normal 14.0-50.0 [facility] Comment on above: Order Comment: Order Added by Discern Expert. Performed By: #### 2 417558, 4963823, 7594096, 77560321, 10544129, 0156783, 46815356 ####[place] [address] [place] [address] Lymphocytes/Leukocytes Auto (Bld) [Pure # fraction] 1.5 E9/L Normal 1.0-4.0 [facility] Comment on above: Order Comment: Order Added by Discern Expert. Performed By: #### 2 641234, 3026993, 3788636, 87024245, 74431214, 6979607, 82673644 ####[address] [address] Monocytes/100 WBC (Bld) 4.6 % Normal 4.0-14.0 [facility] Comment on above: Order Comment: Order Added by Discern Expert. Performed By: #### 2 460310, 7205956, 6453623, 23072319, 14851907, 4811422, 53305133 ####[place] [address] [place] [address] Monocytes/Leukocytes Auto (Bld) [Pure # fraction] 0.5 E9/L Normal 0.2-1.0 [facility] Comment on above: Order Comment: Order Added by Discern Expert. Performed By: #### 2 188778, 3645889, 7768639, 99629081, 02383696, 7673388, 09821788 ####[address] [address] Neutrophils/100 WBC (Bld) 78.0 % High 36.0-75.0 [facility] Comment on above: Order Comment: Order Added by Discern Expert. Performed By: #### 2 979246, 8298277, 9121193, 29170030, 79113791, 2629421, 31567370 ####[facility] [address] [place] [address] Neutrophils/Leukocytes Auto (Bld) [Pure # fraction] 7.7 E9/L High 2.0-7.5 [facility] Comment on above: Order Comment: Order Added by Discern Expert. Performed By: #### 2 205580, 5956537, 4363423, 73222234, 85617774, 5758242, 48229366 ####[facility] [address] [place] [address] BMPon 06-13-2023 Creatinine [Mass/Vol] 0.6 mg/dL Normal 0.5-1.3 [facility] Comment on above: Performed By: #### 2 854818, 0109556, 9527493, 42787610, 20149765, 3570272, 51401956 ####[facility] [address] [place] [address] Urea nitrogen [Mass/Vol] 8 mg/dL Normal 5-21 [facility] Comment on above: Performed By: #### 2 241573, 6352582, 4250537, 25714697, 89396723, 1543264, 27918678 ####[facility] [address] [place] [address] Urea nitrogen/Creatinine [Mass ratio] 13 No Units Normal 10-20 [facility] Comment on above: Performed By: #### 2 172168, 8248934, 6201992, 62591268, 30859553, 3771256, 14550435 ####[facility] [address] [place] [address] Anion gap [Moles/Vol] 12 mmol/L Normal 6-16 [facility] Comment on above: Performed By: #### 2 919996, 8085251, 1036892, 42138814, 02392440, 6121431, 98985491 ####[facility] [address] [place] [address] Calcium [Mass/Vol] 9.4 mg/dL Normal 8.9-11.1 [facility] Comment on above: Performed By: #### 2 496453, 5407213, 3300510, 16563812, 08236676, 2977543, 95247761 ####[facility] [address] [place] [address] Chloride [Moles/Vol] 105 mmol/L Normal 101-111 [facility] Comment on above: Performed By: #### 2 219378, 8511277, 7130040, 22769488, 72750012, 0031887, 47395191 ####[facility] [address] [place] [address] CO2 [Moles/Vol] 24 mmol/L Normal 21-31 [facility] Comment on above: Performed By: #### 2 970677, 9833150, 2296581, 25924364, 85504174, 8953243, 39549288 ####[facility] [address] [place] [address] Glucose [Mass/Vol] 117 mg/dL Normal 55-199 [facility] Comment on above: Result Comment: If t his glucose result represents a fasting glucose, interpretation should refer to the following reference range: 55-99 mg/dL Performed By: #### 2 372864, 5601058, 7706310, 73251416, 99838886, 7676544, 07417506 ####[facility] [address] [place] [address] Potassium [Moles/Vol] 3.5 mmol/L Normal 3.5-5.3 [facility] Comment on above: Performed By: #### 2 369746, 2163812, 4271929, 60161061, 70757581, 1426687, 82524616 ####[facility] [address] [place] [address] Sodium [Moles/Vol] 137 mmol/L Normal 135-145 [facility] Comment on above: Performed By: #### 2 801111, 2506749, 5527171, 52860060, 45971178, 0175517, 33717406 ####[facility] [address] [place] [address] CBC w/ Auto Diffon 3 Erythrocyte distribution width (RBC) [Ratio] 13.3 % Normal 10.9-14.2 [facility] Comment on above: Performed By: #### 2 065007, 8477977, 2165107, 20159276, 59095898, 5125196, 94445859 ####[facility] [address] [place] [address] Hematocrit (Bld) [Volume fraction] 40.3 % Normal 34.0-46.0 [facility] Comment on above: Performed By: #### 2 435814, 0811353, 6870797, 40133566, 78999263, 5149131, 20446397 ####[facility] [address] [place] [address] Hemoglobin (Bld) [Mass/Vol] 14.0 g/dL Normal 12.0-16.0 [facility] Comment on above: Performed By: #### 2 831255, 6714258, 6755883, 62424480, 12483810, 0676631, 33398511 ####[facility] [address] [place] [address] MCH (RBC) [Entitic mass] 30.2 pg Normal 27.0-34.0 [facility] Comment on above: Performed By: #### 2 475821, 5758791, 9973602, 15069500, 38214538, 1964867, 34089343 ####[place] [address] [place] [address] MCHC (RBC) [Mass/Vol] 34.7 g/dL Normal 31.4-36.0 [facility] Comment on above: Performed By: #### 2 456600, 5400578, 8605885, 37433442, 58987227, 4064101, 17507204 ####[place] [address] [place] [address] MCV (RBC) [Entitic vol] 86.9 fL Normal 80.0-100.0 [facility] Comment on above: Performed By: #### 2 113872, 4575288, 6615030, 04236109, 66751644, 3615130, 89715606 ####[address] [address] Platelet mean volume (Bld) [Entitic vol] 6.6 fL Normal 6.4-10.8 [facility] Comment on above: Performed By: #### 2 777927, 9294481, 1399617, 54427093, 43967028, 9493443, 67785796 ####[address] [address] Platelets (Bld) [#/Vol] 416.0 E9/L Normal 150.0-500. 0 [facility] Comment on above: Performed By: #### 2 086602, 9742866, 2631390, 05027931, 68177338, 6791780, 42038468 ####[address] [address] RBC (Bld) [#/Vol] 4.6 E12/L Normal 4.3-5.9 [facility] Comment on above: Performed By: #### 2 825743, 4758729, 3301516, 66561861, 91425905, 5722889, 40537256 ####[address] [address] WBC corrected for nucl RBC Auto (Bld) [#/Vol] 9.8 E9/L Normal 4.0-11.0 [facility] Comment on above: Performed By: #### 2 894650, 9655769, 8457491, 37656488, 61326844, 1187265, 91649486 ####[address] [place] [address] CHEMISTRYOrdered By: SYSTEM SYSTEM on 06-13-2023 Anion [...] 10 - 20 [facility] Remisol CNPNon 06-13-2023 CNPN Telephone (HEMTSA) GUS MAIER ([id number]) 1985 F Date Time Provider Department 06/13/23 AZRA HOLLEY During your visit today, we recorded the following information about you: Azra Holley RN 06/13/2023 12:23 PM Signed Patient has left VM to notify that [...] a longer appointment. 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 - rtrrrpl-wfncmymb-ejr-silico ne 2-4-2 % kit 1 application - gabapentin (NEURONTIN) 300 mg capsule Take 1 capsule by mouth twice daily for 90 days. Problem List As Of Date: 06/13/2023 (None) Encounter Status:Closed by AZRA HOLLEY on 06/17/23 [facility] COAGULATIONOrdered By: Wally Perea on 06-13-2023 aPTT Coag (PPP) [Time] 33.9 s Normal 25.1 - 36.5 second(s) [facility] Auto Coag INR Coag (PPP) [Relative time] 1.1 {INR} Invalid Interpretation Code [facility] Auto Coag PT Coag (PPP) [Time] 12.2 s Normal 9.4 - 1 2.5 second(s) [facility] Auto Coag Consent for Treatmenton 05-30 Consent for Treatment [id number]#1.00CD:127 Normal [facility] Discharge Instructionson Discharge Instructions [id number]#[id number]:127 Normal [facility] ED Clinical Summaryon 2022 ED Clinical Summary (Inserted Image. Adali ble to display) [place] [id number] ED Clinical Summary Person Information Name: SHANTE MAIERKAYKAY [facility] Age: 37 Years : 1985 Sex: Female Language: Grenadian PCP: NONE, XXXX Marital Status: Phone: [phone] Visit Id: Visit Reason: Vomiting; Chest pain; [...] 21:11:14 06/13/2023 21:11:14 06/13/2023 21:11:14 ADDR[address]: [address] [facility] [place] [id number] PHYS DOC NOTES: MEDICAL INFORMATION: Prescriptions Given: New Medications [id number], [address], [place] [id number], [phone] acetaminophen-oxycodone (acetaminophen-oxycodone 325 mg-5 mg Tab) 1 Tablets By Mouth every 6 hours as needed for pain for 3 Days. Refills: 0. ondansetron (Zofran ODT 4 mg Tab-Dis) 1 Tablets By Mouth every 8 hours as needed Nausea/Vomiting. Refills: 0. Medications to Continue with No Changes Other Medications acetaminophen-hydrocodone ([place] 325 mg-5 mg oral tablet) 1 Tablets [...] 1. PATIENT EDUCATION INFORMATION: Instructions: Cellulitis, Adult, Rwga-md-Tngn Follow up: With: Address: When: [facility] [phone] [facility] [phone] [facility] [phone] In 3 days 06/16/2023 With: Address: When: Dr Meredith Hairston [phone] [facility] [phone] In 3 days 06/16/2023 With: Address: When: XXXX NONE , [place] In 3 days 06/16/2023 DIAGNOSIS: Breast pain; Cellulitis of right breast Normal [facility] ED Patient Education Noteon 06-13-2023 ED Patient [...] these instructions at home: Medicines ? Take hkcj-vzq-kyandxh and prescription medicines only as told by [...] provider. Document Revised: 06/27/2022 Document Reviewed: 06/27/2022 Elsevier Patient Education ? 2022 [employer] Normal [facility] ED Patient Summaryon 023 ED Patient Summary (Inserted Image. Adali ble to display) [address] [address] Patient Discharge Instructions Person Information Name: GUS MAIER Age: 37 Years Arrival Date: 06/13/2023 17:37:06 Discharge Diagnosis: Breast pain; Cellulitis of right breast Primary Care Physician: NONE, XXXX Provider Information Primary Provider: Cooper Juarez DO Advanced Product Responsibility Liaison:Scott The exam and treatment you received in the Emergency Department were for an urgent problem and are not intended as complete care. It is important that you follow up with a doctor, nurse practitioner, or physician?s physiotherapist's assistant for ongoing care. If your symptoms become worse or you do not improve as expected and you are unable to reach your usual health care provider, you should return to the Emergency Department. We are available 24 hours a day. GUS MAIER has been given the following list of patient education materials, prescriptions and follow-up instructions: Follow-up Instructions: With: Address: When: [facility] [phone] [facility] [phone] [facility] [phone] In 3 days 06/16/2023 With: Address: When: Dr Meredith Hairston [phone] [facility] [phone] In 3 days 06/16/2023 With: Address: When: XXXX NONE , [place] In 3 days 06/16/2023 In the event that this physician does not participate in your insurance network, please consult with your insurance company to find a nearby participating provider. Patient Education Materials: Cellulitis, Adult, Khvq-vs-Yzfx A MESSAGE TO ALL PATIENTS REGARDING OPIOIDS PRESCRIPTION OPIOIDS: WHAT YOU NEED TO KNOW Prescription opioids can be used to help relieve lcgdftnn-fh-muvxld pain and are often prescribed following a [...] risks of (more content not included)... Normal [facility] HEMATOLOGYOrdered By: SYSTEM SYSTEM on 06-13-2023 Basophils/100 WBC (Bld) 0.4 % Normal 0.0 - 2.0 % [facility] HemeAutoSS Basophils/Leukocytes Auto (Bld) [Pure # fraction] [...] 7.5 E9/L [facility] HemeAutoSS HEMATOLOGYOrdered By: Aneta Kenney on 06-13-2023 Erythrocyte distribution width (RBC) [Ratio] [...] 86.9 fL Normal 80.0 - 100.0 fL [facility] HemeAutoSS Platelet mean volume (Bld) [Entitic vol] 6.6 fL Normal 6.4 - 10.8 fL [facility] HemeAutoSS Platelets (Bld) [#/Vol] 416.0 E9/L Normal 150.0 - 500.0 E9/L [facility] HemeAutoSS RBC (Bld) [#/Vol] 4.6 E12/L Normal 4.3 - 5.9 E12/L [facility] HemeAutoSS WBC corrected for nucl RBC Auto (Bld) [#/Vol] 9.8 E9/L Normal 4.0 - 11.0 E9/L [facility] HemeAutoSS Lactic Acidon 06-13-2023 Lactate [Mass/Vol] 1.2 mmol/L Normal 0.5-2.2 [facility] Comment on above: Performed By: #### 2 790592, 1956214, 6021138, 18039413, 46830847, 2602151, 08556506 ####[facility] [address] [place] [address] PT & PTTon 06-13-2023 aPTT Coag (PPP) [Time] 33.9 second(s) Normal 25.1-36.5 [facility] Comment on above: Result Comment: Para meter [...] the same coagulation reagent and instrumentation as [facility]. Currently there are no coagulation studies available worldwide for children to 14 days, and no normal ranges. Heparin therapeutic range (represented by Anti-Factor Xa activity of 0.2 - 0.4 U/mL) corresponds to PTT of 56.6 - 109.0 sec. Performed By: #### 2 068164, 9570805, 0157343, 60327798, 98241248, 1357903, 01590331 ####[facility] [address] [place] [address] INR Coag (PPP) [Relative time] 1.1 {INR} Invalid Interpretation Code [facility] Comment on above: Result Comment: INR results are specifically intended to assess patients stabilized on long-term Anticoagulation therapy suggested INR?s ?Less Intensive Anticoagulation? 2.0 ? 3.0 Conventional Range 3.0 ? 4.5 Performed By: #### 2 872960, 5865359, 1108181, 02079453, 46463569, 2883548, 70420551 ####[facility] [address] [place] [address] PT Coag (PPP) [Time] 12.2 second(s) Normal 9.4-12.5 [facility] Comment on above: Result Comment: 15 d [...] the same coagulation reagent and instrumentation as [facility]. Currently there are no coagulation studies available worldwide for children to 14 days, and no normal ranges. Performed By: #### 2 257507, 6756310, 8578860, 61617291, 63407536, 3127753, 97926972 ####[facility] [address] [place] [address] Prescriptions/Work Noteson 0 06-13-2023 Prescriptions/Work Notes [id number]#1.00CD:127 Normal [facility] Prescriptions/Work Notes [id number]#1.00CD:127 Normal [facility] Troponin 0 Hr.on 06-13-2023 Troponin I.cardiac [Mass/Vol] 2.70 pg/mL Low 10.10-27.1 0 [facility] Comment on above: Result Comment: The 95% CI (Confidence Interval) PPV (Positive Predictive Value) for myocardial infarction in females is 38 pg/mL, in males 51 pg/mL. The results should be used in conjunction with clinical conditions of myocardial infarction. (Access High Sensitivity Troponin I Instructions For Use, [employer], April 2018) Performed By: #### 2 457543, 6187544, 5894955, 93246762, 03462463, 7292498, 14378486 ####[facility] [address] [place] [address] XR Chest Single Viewon 06-13 XR Chest Single View Exam Date/Time: 06/13/2023 19:28 EDT Reason for Exam: Chest pain Report IMPRESSION: No acute radiographic abnormality. EXAMINATION: XR Chest Single View Clinical History: Chest pain Comparison: None RESULT: No consolidation. No pleural effusion. No pneumothorax. Normal cardiomediastinal silhouette. No acute osseous findings. Ordering Provider: Jose Elizondo FINAL REPORT Dictated: 06/13/2023 7:52 pm Terry Carson MD. Signed (Electronic Signature): 06/13/2023 7:52 pm Signed by: Terry Carson MD Transcribed by: LAUREL Technologist: ADELITA Technical Comments Radiation Dose: Ka,r in mGy = na DAP = a Normal [facility] eGFRon 06-13-2023 GFR/1.73 sq M.predicted among non-blacks MDRD (S/P/Bld) [Vol rate/Area] 119 mL/min/1.73 m2 Normal >=59 [facility] Comment on above: Order Comment: Order added by Discern Expert. 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 Kidney failure is indicated at less than 15 mL/min/1.73m2. Performed By: #### 2 983703, 1857278, 6237862, 68612497, 92625187, 6533271, 67787339 ####[facility] [address] [place] [address] Consent for Treatmenton 05-30 Consent for Treatment [id number]#[id number]:127 Normal [facility] Discharge Instructionson Discharge Instructions [id number]#[id number]:127 Normal [facility] ED Clinical Summaryon 2022 ED Clinical Summary (Inserted Image. Adali ble to display) [address] [address] ED Clinical Summary Person Information Name: GUS MAIER [facility] Age: 37 Years : 1985 Sex: Female Language: Grenadian PCP: NONE, XXXX Marital Status: Phone: [phone] Visit Id: Visit Reason: Medical problem - [...] 06/10/2023 14:54:46 06/10/2023 14:54:46 06/10/2023 14:54:46 ADDRESS: [address] [place] [address] [place] [phone] PHYS DOC NOTES: MEDICAL INFORMATION: Prescriptions Given: New Medications [facility]/pharmacy #[id number], [address], [place] [id number], [phone] acetaminophen-hydrocodone ([place] 325 mg-5 mg oral tablet) 1 Tablets By Mouth every 6 hours as needed for pain. Refills: 0. doxycycline (doxycycline hyclate 100 mg Tab) 1 Tablets By Mouth 2 times a day for 14 Days. Refills: 0. mupirocin topical (Bactroban 2% Cream) 1 Application Topical 3 times a day. Refills: 1. [facility] 4751, [address] [id number], [phone] doxycycline (doxycycline monohydrate 100 mg oral tablet) 1 Tablets By Mouth 2 times a day for 14 Days. Refills: 0. Medications to Continue with No Changes Other Medications albuterol levetiracetam (Keppra) PATIENT EDUCATION INFORMATION: Instructions: Follow up: With: Address: When: [facility] [phone] [facility] [phone] [phone] In 3 days 06/13/2023 With: Address: When: Dr Meredith Hairston [phone] [facility] [phone] In 3 days 06/13/2023 With: Address: When: KATHRYN MINAYA [address] [place] [phone] Business (1) In 3 days DIAGNOSIS: 1:Cellulitis of right breast Normal [facility] ED Patient Education Noteon 06-10-2023 ED Patient Education Note Normal [facility] ED Patient Summaryon 023 ED Patient Summary (Inserted Image. Adali ble to display) [address] [address] Patient Discharge Instructions Person Information Name: GUS MAIER Age: 37 Years Arrival Date: 06/10/2023 13:23:33 Discharge Diagnosis: 1:Cellulitis of right breast Primary Care Physician: NONE, XXXX Provider Information Primary Provider: Ashish Cruz DO Advanced Product Responsibility Liaison:None The exam and treatment you received in the Emergency Department were for an urgent problem and are not intended as complete care. It is important that you follow up with a doctor, nurse practitioner, or physician?s physiotherapist's assistant for ongoing care. If your symptoms become worse or you do not improve as expected and you are unable to reach your usual health care provider, you should return to the Emergency Department. We are available 24 hours a day. GUS MAIER has been given the following list of patient education materials, prescriptions and follow-up instructions: Follow-up Instructions: With: Address: When: [facility] [phone] [facility] [phone] [facility] [phone] In 3 days 06/13/2023 With: Address: When: Dr Meredith Hairston [phone] [facility] [phone] In 3 days 06/13/2023 With: Address: When: KATHRYN MINAYA [address] [place] [phone] [facility] (1) In 3 days In the event that this physician does not participate in your insurance network, please consult with your insurance company to find a nearby participating provider. Patient Education Materials: A MESSAGE TO ALL PATIENTS REGARDING OPIOIDS PRESCRIPTION OPIOIDS: WHAT YOU NEED TO KNOW Prescription opioids can be used to help relieve qwevivkh-eq-dacjab pain and are often prescribed following a [...] learn about (more content not included)... Normal [facility] Prescriptions/Work Noteson 0 06-10-2023 Prescriptions/Work Notes [id number] Normal [facility] Activated partial thrombopla stin time (aPTT) in platelet poor plasma by coagulation aOrdered By: Katherine Zamarripa on 04-08-2023 aPTT Coag (PPP) [Time] 31.9 s 25.1-36.5 [facility] B-Type Natriuretic Peptideon 04-08-2023 Natriuretic peptide B (Bld) [Mass/Vol] 26.0 pg/mL Normal 5-100 [facility] Comment on above: Result Comment: PERF ORMED BY: [place] [address] PATHOLOGIST PHONE SCREENER MANDO CALVILLO M.D. Performed By: #### P T, PTT, BNP, CBC, DDIMER, BMP, HS TROP #### [facility] [address] [place] [address] Basic Metabolic Panelon 03-29 Anion gap [Moles/Vol] 9.5 mmol/L Normal 6.0-15.0 [facility] Comment on above: Performed By: #### P T, PTT, BNP, CBC, DDIMER, BMP, HS TROP #### [facility] [address] [place] [address] Calcium [Mass/Vol] 9.3 mg/dL Normal 8.6-10.3 [facility] Comment on above: Performed By: #### P T, PTT, BNP, CBC, DDIMER, BMP, HS TROP #### [facility] [address] Chloride [Moles/Vol] 104 mmol/L Normal 98-107 [facility] Comment on above: Performed By: #### P T, PTT, BNP, CBC, DDIMER, BMP, HS TROP #### [facility] [address] CO2 [Moles/Vol] 27.1 mmol/L Normal 21.0-31.0 [facility] Comment on above: Performed By: #### P T, PTT, BNP, CBC, DDIMER, BMP, HS TROP #### [facility] [address] Creatinine [Mass/Vol] 0.55 mg/dL Low 0.60-1.20 [facility] Comment on above: Performed By: #### P T, PTT, BNP, CBC, DDIMER, BMP, HS TROP #### [facility] [address] Creatinine Clr Calc Pharmacy 154.61 [facility] Comment on above: Result Comment: PERF ORMED BY: [place] [address] PATHOLOGIST PHONE SCREENER MANDO CALVILLO M.D. Performed By: #### P T, PTT, BNP, CBC, DDIMER, BMP, HS TROP #### [facility] [address] GFR/1.73 sq M.predicted MDRD (S/P/Bld) [Vol rate/Area] mL/min/{1.73_m2} [facility] Comment on above: Performed By: #### P T, PTT, BNP, CBC, DDIMER, BMP, HS TROP #### [facility] [address] Glucose [Mass/Vol] 81 mg/dL Normal 70-100 [facility] Comment on above: Result Comment: [facility] Glucose Reference Range is dependent on time and content of last meal. Glucose of more than 200 mg/dL in a nonstressed, ambulatory subject supports the diagnosis of Diabetes Mellitus. ADA recommended reference range Performed By: #### P T, PTT, BNP, CBC, DDIMER, BMP, HS TROP #### [facility] [address] Potassium [Moles/Vol] 3.6 mmol/L Normal 3.5-5.1 [facility] Comment on above: Performed By: #### P T, PTT, BNP, CBC, DDIMER, BMP, HS TROP #### [facility] [address] Sodium [Moles/Vol] 137 mmol/L Normal 136-145 [facility] Comment on above: Performed By: #### P T, PTT, BNP, CBC, DDIMER, BMP, HS TROP #### [facility] [address] Urea nitrogen [Mass/Vol] 7 mg/dL Normal 7-25 [facility] Comment on above: Performed By: #### P T, PTT, BNP, CBC, DDIMER, BMP, HS TROP #### [facility] [address] Basophils Auto (Bld) [#/Vol] Ordered By: Katherine Zamarripa on 04-08-2023 Basophils (Bld) [#/Vol] 0.0 10*3/uL 0.0-0.2 [facility] Basophils/100 WBC Auto (Bld) Ordered By: Katherine Zamarripa on 04-08-2023 Basophils/100 WBC (Bld) 0.4 % . [facility] Calcium [Mass/volume] in Ser um or PlasmaOrdered By: Katherine Zamarripa on 04-08-2023 Calcium [Mass/Vol] 9.3 mg/dL 8.6-10.3 [facility] Carbon dioxide, total [Moles /volume] in Serum or PlasmaOrdered By: Katherine Zamarripa on 04-08-2023 CO2 [Moles/Vol] 27.1 mmol/L 21.0-31.0 [facility] Chloride [Moles/volume] in S erik or PlasmaOrdered By: Katherine Zamarripa on 04-08-2023 Chloride [Moles/Vol] 104 mmol/L 98-107 [facility] Complete Blood Count Auto Di ffon 04-08-2023 Basophils (Bld) [#/Vol] 0.0 10*3/uL Normal 0.0-0.2 [facility] Comment on above: Result Comment: PERF ORMED BY: [place] [address] PATHOLOGIST PHONE SCREENER MANDO CALVILLO M.D. Performed By: #### P T, PTT, BNP, CBC, DDIMER, BMP, HS TROP #### [address] Basophils/100 WBC (Bld) 0.4 % Normal . [facility] Comment on above: Performed By: #### P T, PTT, BNP, CBC, DDIMER, BMP, HS TROP #### [address] Eosinophils (Bld) [#/Vol] 0.3 10*3/uL Normal 0.0-0.45 [facility] Comment on above: Performed By: #### P T, PTT, BNP, CBC, DDIMER, BMP, HS TROP #### [address] Eosinophils/100 WBC (Bld) 4.7 % Normal . [facility] Comment on above: Performed By: #### P T, PTT, BNP, CBC, DDIMER, BMP, HS TROP #### [address] Erythrocyte distribution width (RBC) [Ratio] 13.2 % Normal 11.9-15.3 [facility] Comment on above: Performed By: #### P T, PTT, BNP, CBC, DDIMER, BMP, HS TROP #### [address] Hematocrit (Bld) [Volume fraction] 38.6 % Normal 34.0-46.4 [facility] Comment on above: Performed By: #### P T, PTT, BNP, CBC, DDIMER, BMP, HS TROP #### [address] Hemoglobin (Bld) [Mass/Vol] 13.2 g/dL Normal 11.8-15.4 [facility] Comment on above: Performed By: #### P T, PTT, BNP, CBC, DDIMER, BMP, HS TROP #### [address] Lymphocytes (Bld) [#/Vol] 2.0 10*3/uL Normal 1.00-4.8 [facility] Comment on above: Performed By: #### P T, PTT, BNP, CBC, DDIMER, BMP, HS TROP #### [address] Lymphocytes/100 WBC (Bld) 27.3 % Normal . [facility] Comment on above: Performed By: #### P T, PTT, BNP, CBC, DDIMER, BMP, HS TROP #### [address] MCH (RBC) [Entitic mass] 30.6 pg Normal 24.7-34.3 [facility] Comment on above: Performed By: #### P T, PTT, BNP, CBC, DDIMER, BMP, HS TROP #### [address] MCV (RBC) [Entitic vol] 88.9 fL Normal 80-100 [facility] Comment on above: Performed By: #### P T, PTT, BNP, CBC, DDIMER, BMP, HS TROP #### [address] Mean Corpuscular HGB Conc 34.4 g/dL Normal 32.0-35.0 [facility] Comment on above: Performed By: #### P T, PTT, BNP, CBC, DDIMER, BMP, HS TROP #### [address] Monocytes (Bld) [#/Vol] 0.6 10*3/uL Normal 0.0-0.8 [facility] Comment on above: Performed By: #### P T, PTT, BNP, CBC, DDIMER, BMP, HS TROP #### [facility] 1111 [place] [address] [place] Monocytes/100 WBC (Bld) 17.42 % Normal 0.00-20.00 [facility] Comment on above: Performed By: #### P T, PTT, BNP, CBC, DDIMER, BMP, HS TROP #### [place] [address] [place] Monocytes/100 WBC (Bld) 8.4 % Normal . [facility] Comment on above: Performed By: #### P T, PTT, BNP, CBC, DDIMER, BMP, HS TROP #### [address] Neutrophils (Bld) [#/Vol] 4.3 10*3/uL Normal 1.8-7.7 [facility] Comment on above: Performed By: #### P T, PTT, BNP, CBC, DDIMER, BMP, HS TROP #### [address] Neutrophils/100 WBC (Bld) 59.2 % Normal . [facility] Comment on above: Performed By: #### P T, PTT, BNP, CBC, DDIMER, BMP, HS TROP #### [address] NRBC% 0.1 /100{WBC} Normal 0-0.5 [facility] Comment on above: Performed By: #### P T, PTT, BNP, CBC, DDIMER, BMP, HS TROP #### [place] [address] [place] Platelet mean volume (Bld) [Entitic vol] 7.7 fL Normal 6.3-10.7 [facility] Comment on above: Performed By: #### P T, PTT, BNP, CBC, DDIMER, BMP, HS TROP #### [place] [address] [place] Platelets (Bld) [#/Vol] 301 10*3/uL Normal 150-450 [facility] Comment on above: Performed By: #### P T, PTT, BNP, CBC, DDIMER, BMP, HS TROP #### [address] RBC (Bld) [#/Vol] 4.34 10*6/uL Normal 3.60-5.00 [facility] Comment on above: Performed By: #### P T, PTT, BNP, CBC, DDIMER, BMP, HS TROP #### [address] WBC (Bld) [#/Vol] 7.3 10*3/uL Normal 3.8-11.6 [facility] Comment on above: Performed By: #### P T, PTT, BNP, CBC, DDIMER, BMP, HS TROP #### [address] Creatinine [Mass/volume] in Serum or PlasmaOrdered By: Katherine Zamarripa on 04-08-2023 Creatinine [Mass/Vol] 0.55 mg/dL 0.60-1.20 [facility] D-Dimer High Sensitivityon 0 04-08-2023 D-Dimer High Sensitivity < 200 Normal 0-243 [facility] Comment on above: Result Comment: The [...] patients due to co-morbid conditions. PERFORMED BY: [place] [address] PATHOLOGIST PHONE SCREENER MANDO CALVILLO M.D. Performed By: #### P T, PTT, BNP, CBC, DDIMER, BMP, HS TROP #### [address] ECG 12 lead ECGon 04-08-2023 ECG 12 lead ECG [facility] [place] [address] [place] [id number] Electrocardiograph Report Signed Patient: Gus Maier MR#: [id number] : 1985 Acct:[id number] Age/Sex: 37 / F ADM Date: 04/08/23 Loc: ER Room: Type: [facility] ER Attending Dr: Ordering Provider: Katherine [...] Signed By Price Bernal DO 0305 Normal [facility] Eosinophils Auto (Bld) [#/Vo l]Ordered By: Katherine Zamarripa on 04-08-2023 Eosinophils (Bld) [#/Vol] 0.3 10*3/uL 0.0-0.45 [facility] Eosinophils/100 WBC Auto (Bl d)Ordered By: Katherine Zamarripa on 04-08-2023 Eosinophils/100 WBC (Bld) 4.7 % . [facility] Erythrocyte distribution wid th Auto (RBC) [Ratio]Ordered By: Katherine Zamarripa on 04-08-2023 Erythrocyte distribution width (RBC) [Ratio] 13.2 % 11.9-15.3 [facility] Glucose [Mass/volume] in Ser um or PlasmaOrdered By: Katherine Zamarripa on 04-08-2023 Glucose [Mass/Vol] 81 mg/dL 70-100 [facility] Comment on above: ADA recommended refe rence rangeRandom Glucose Reference Range is dependent on time and content of last meal. Glucose of more than 200 mg/dL in a nonstressed, ambulatory subject supports the diagnosis of Diabetes Mellitus. Hematocrit Auto (Bld) [Volum e fraction]Ordered By: Katherine Zamarripa on 04-08-2023 Hematocrit (Bld) [Volume fraction] 38.6 % 34.0-46.4 [facility] Hemoglobin [Mass/volume] in BloodOrdered By: Katherine Zamarripa on 04-08-2023 Hemoglobin (Bld) [Mass/Vol] 13.2 g/dL 11.8-15.4 [facility] - CoagulationOrde red By: Katherine Zamarripa on 04-08-2023 PT Coag (PPP) [Time] 12.2 s 9.0-12.9 [facility] Leukocytes [#/volume] correc linwood for nucleated erythrocytes in Blood by Automated counOrdered By: Katherine Zamarripa on 04-08-2023 WBC corrected for nucl RBC Auto (Bld) [#/Vol] 7.3 10*3/uL 3.8-11.6 [facility] Lymphocytes Auto (Bld) [#/Vo l]Ordered By: Katherine Zamarripa on 04-08-2023 Lymphocytes (Bld) [#/Vol] 2.0 10*3/uL 1.00-4.8 [facility] Lymphocytes/100 WBC Auto (Bl d)Ordered By: Katherine Zamarripa on 04-08-2023 Lymphocytes/100 WBC (Bld) 27.3 % . [facility] MCH Auto (RBC) [Entitic mass ]Ordered By: Katherine Zamarripa on 04-08-2023 MCH (RBC) [Entitic mass] 30.6 pg 24.7-34.3 [facility] MCHC Auto (RBC) [Mass/Vol]Or dered By: Katherine Zamarripa on 04-08-2023 MCHC (RBC) [Mass/Vol] 34.4 g/dL 32.0-35.0 [facility] MCV Auto (RBC) [Entitic vol] Ordered By: Katherine Zamarripa on 04-08-2023 MCV (RBC) [Entitic vol] 88.9 fL 80-100 [facility] Monocyte distribution width [Entitic volume] in Blood by AutomatedOrdered By: Katherine Zamarripa on 04-08-2023 Monocyte distribution width Auto (Bld) [Entitic vol] 17.42 % 0.00-20.00 [facility] Monocytes Auto (Bld) [#/Vol] Ordered By: Katherine Zamarripa on 04-08-2023 Monocytes (Bld) [#/Vol] 0.6 10*3/uL 0.0-0.8 [facility] Monocytes/100 WBC Auto (Bld) Ordered By: Katherine Zamarripa on 04-08-2023 Monocytes/100 WBC (Bld) 8.4 % . [facility] Natriuretic peptide B [Mass/ Vol]Ordered By: Katherine Zamarripa on 04-08-2023 Natriuretic peptide B (Bld) [Mass/Vol] 26.0 pg/mL 5-100 [facility] Neutrophils Auto (Bld) [#/Vo l]Ordered By: Katherine Zamarripa on 04-08-2023 Neutrophils (Bld) [#/Vol] 4.3 10*3/uL 1.8-7.7 [facility] Neutrophils/100 WBC Auto (Bl d)Ordered By: Katherine Zamarripa on 04-08-2023 Neutrophils/100 WBC (Bld) 59.2 % . [facility] No Panel InformationOrdered By: Katherine Zamarripa on 04-08-2023 D-Dimer Quantitative (PE/DVT) < 200 ng/mL 0-243 [facility] Comment on above: The reference range [...] conditions. Estimated GFR (CKD-EPI) > 60.0 mL/Min [facility] Creatinine Clearance (Chem 154.61 [facility] Nucleated erythrocytes [Pres ence] in Blood by Automated countOrdered By: Katherine Zamarripa on 04-08-2023 Nucleated RBC Auto Ql (Bld) 0.1 /100{WBC} 0-0.5 [facility] Partial Thromboplastin Timeo n 04-08-2023 aPTT Coag (Bld) [Time] 31.9 s Normal 25.1-36.5 [facility] Comment on above: Performed By: #### P T, PTT, BNP, CBC, DDIMER, BMP, HS TROP #### [facility] [address] Platelet mean volume Auto (B ld) [Entitic vol]Ordered By: Katherine Zamarripa on 04-08-2023 Platelet mean volume (Bld) [Entitic vol] 7.7 fL 6.3-10.7 [facility] Platelet poor plasma interna tional normalized ratio (INR) by coagulation assay (relatOrdered By: Katherine Zamarripa on 04-08-2023 INR Coag (PPP) [Relative time] 1.1 {INR} [facility] Comment on above: INR Therapeutic Rang [...] 04-08-2023 Platelets (Bld) [#/Vol] 301 10*3/uL 150-450 [facility] Potassium [Moles/volume] in Serum or PlasmaOrdered By: Katherine Zamarripa on 04-08-2023 Potassium [Moles/Vol] 3.6 mmol/L 3.5-5.1 [facility] Prothrombin Time INRon 04-08 INR Coag (PPP) [Relative time] 1.1 {INR} Normal [facility] Comment on above: Result Comment: INR [...] BNP, CBC, DDIMER, BMP, HS TROP #### [facility] [address] PT Coag (PPP) [Time] 12.2 s Normal 9.0-12.9 [facility] Comment on above: Performed By: #### P T, PTT, BNP, CBC, DDIMER, BMP, HS TROP #### [address] RBC Auto (Bld) [#/Vol]Ordere d By: Katherine Zamarripa on 04-08-2023 RBC (Bld) [#/Vol] 4.34 10*6/uL 3.60-5.00 [facility] Serum or plasma anion gap de terminationOrdered By: Katherine Zamarripa on 04-08-2023 Anion gap [Moles/Vol] 9.5 mmol/L 6.0-15.0 [facility] Sodium [Moles/volume] in Ser um or PlasmaOrdered By: Katherine Zamarripa on 04-08-2023 Sodium [Moles/Vol] 137 mmol/L 136-145 [facility] Troponin I High Sensitivityo n 04-08-2023 Troponin I High Sensitivity 2.4 pg/mL Normal 0.0-15.0 [facility] Comment on above: Result Comment: PERF ORMED BY: [place] [address] PATHOLOGIST PHONE SCREENER MANDO CALVILLO M.D. Performed By: #### P T, PTT, BNP, CBC, DDIMER, BMP, HS TROP #### [address] Troponin I.cardiac [Mass/vol ume] in Serum or Plasma by Detection limit <= 0.01 ng/Ordered By: Katherine Zamarripa on 04-08-2023 Troponin I.cardiac DL <= 0.01 ng/mL [Mass/Vol] 2.4 pg/mL 0.0-15.0 [facility] Urea nitrogen [Mass/volume] in Serum or PlasmaOrdered By: Katherine Zamarripa on 04-08-2023 Urea nitrogen [Mass/Vol] 7 mg/dL 04-22 [facility] WBC Auto (Bld) [#/Vol]Ordere d By: Katherine Zamarripa on 04-08-2023 WBC (Bld) [#/Vol] 7.3 10*3/uL 3.8-11.6 [facility] XR chest 2V*on 04-08-2023 XR chest 2V* [facility] [address] XRay Report Signed Patient: Gus Maier MR#: [id number] : 1985 Acct:[id number] Age/Sex: 37 / F ADM Date: 04/08/23 Loc: ER Room: Type: [facility] ER Attending Dr: Copies to: [...] Stephen Ashraf M.D.04/08/2023 9:01 PM Dictation Location: [place] [address] Transcribed By: [facility] 04/08/232100 Dictated By: Stephen Ashraf DO 04/08/232099 Signed By: 04/08/232100 [facility] 36on 03-26-2023 37 S: Caller spoke with [facility] nurse regarding multiple issues. B: Onset of symptoms/concern: Not an established patient A: Caller states she has been to several doctors but no one seems to be able to help her, calling regarding multiple issues, Hx- [place], looking for someone to possibly help her. R: Caller scheduled on 04/28/23 to establish care with [facility], insurance coverage verified. Patient placed on wait list in case of a cancellation. Reason for Disposition Requesting regular office appointment Protocols used: Information Only Call - No [id number] Aerobic Cultureon 03-12-2023 Aerobic Culture Result Tab Codes Light Normal Skin Vonda 2 Days No Anaerobes Isolated 3 Days Gram Stain Result 3+ White Blood Cells No Bacteria Seen PERFORMED BY: [place] [address] PATHOLOGIST PHONE SCREENER MANDO CALVILLO M.D. [facility] Comment on above: Performed By: #### G S, AERC #### [facility] [address] [place] [address] [facility] Aerobic cultureOrdered By: Najma Kramer on 03-12-2023 Bacteria identified Aer cx Nom (Unsp spec) [facility] Anaerobic cultureOrdered By: Maru Kramer on 03-12-2023 Bacteria identified Anaer cx Nom (Unsp spec) No Anaerobes Isolated 3 Days [facility] Gram Stainon 03-12-2023 Microscopic observation Gram stain Nom (Unsp spec) Gram Stain Result 3+ White Blood Cells No Bacteria Seen PERFORMED BY: [address] [place] [address] PATHOLOGIST PHONE SCREENER MANDO CALVILLO M.D. [facility] Comment on above: Performed By: #### G S, AERC #### [facility] [address] [place] [address] [facility] Gram stain for investigation of transfusion reactionOrdered By: Maru Kramer on 03-12-2023 Microscopic observation Gram stain Nom (Unsp spec) [facility] Covid-19 PCR (CVDTB)on SARS-CoV-2 (COVID-19) RNA GLORIA+probe Ql (Unsp spec) Detected Abnormal NOT DETECTED [facility] Comment on above: Result Comment: This test is not yet approved or cleared by the [place] FDA. When there are no FDA-approved or cleared tests available, and other criteria are met, FDA can make tests available under an emergency access mechanism called an Emergency Use Authorization (EUA). The EUA for this test is supported by the [place] of Health and Human Service's (HHS's) declaration [...] By: #### C VDTB #### [facility] [address] [place] [address] Dr. Constantine Ruth INFLUENZA A AND B [facility] 10-06 [facility] SEE BELOW Normal [facility] Comment on above: Result Comment: Nega tive for Flu A protein angiten. Infection due to Flu A cannot be ruled out. Flu A angiten in the sample may be below the detection limit of the test. Performed By: #### I NFLUAB #### [facility] [address] [place] [address] Dr. Constantine Ruth [facility] SEE BELOW Normal [facility] Comment on above: Result Comment: Nega tive for Flu B protein antigen. Infection due to Flu B cannot be ruled out. Flu B antigen in the sample may be below the detection limit of the test. Performed By: #### I NFLUAB #### [facility] [address] [place] [address] Dr. Constantine Ruth INFLUENZA A AG Negative Normal NEGATIVE SEE COMMENT [facility] Comment on above: Performed By: #### I NFLUAB #### [facility] [address] [place] [address] Dr. Constantine Ruth INFLUENZA B AG Negative Normal NEGATIVE SEE COMMENT [facility] Comment on above: Performed By: #### I NFLUAB #### [facility] [address] [place] [address] Dr. Constantine Ruth [facility] GUS PLASCENCIA ([id number]) 1985 F Date Time Provider Department 08/14/22 TIMUR HODGES During your visit today, we recorded the following information about you: Kat Rodriguez Soto 08/14/2022 10:22 AM Signed Nikky from Dr Ashish Paniagua's office called requesting records from Dr Hodges, office notes and images if any. # [phone] fax # [phone] Thank you. Ely Janine Stevens Ma 08/16/2022 12:47 PM Signed I [...] Date Reviewed: 08/02/2021 Reviewed by: Kathryn Cartagena APRN.MILD DISABILITIES TEACHER - Fully Assessed Reason for Visit: Release Of Medical Records [2017] Prescriptions as of 08/16/2022 - levETIRAcetam (KEPPRA) 750 mg tablet Take 1 tablet by mouth twice daily. - kzpaacj-ikhqkrcx-isq-silico ne 2-4-2 % kit 1 application - levETIRAcetam (KEPPRA) 500 mg tablet as directed - gabapentin (NEURONTIN) 300 mg capsule Take 1 capsule by mouth twice daily for 90 days. Problem List As Of Date: 08/14/2022 (None) Encounter Status:Closed by KAT ASHBY on 08/14/22 Normal [facility] XR ANKLE RT MIN 3 VIEWSon [...] by: FRANCIS LOMBARDI Date: 2022-07-01 21:45 Normal [facility] Provider Note - EDon 09-25-2 018 Protein mass conc Document Status Changed Normal [facility] Provider Note - EDon 07-23- 018 Protein mass conc TIME SEEN:? Time [id number]-Qcn-3647 13:08 CHIEF COMPLAINT/REASON FOR VISIT:? Chief ComplaintX 2 DAYS(1)? REASON FOR VISITSORE THROAT(1) ? Historianpatient HISTORY OF PRESENT ILLNESS - ADDITIONAL:? Zurtiksgf78-sbyy-jlg female presents to the Emergency Departmenttoday complaining [...] Medical History: Multiple Sclerosis(1) PAST SURGICAL HISTORY: /Clinical Reimbursement Specialist/Breast: SECTION(1)GI/Hepatobiliary: CHOLECYSTECTOMY(1) FAMILY HISTORY:Family History: reviewed [...] SiteHeart Rate (beats/min) beats/minBP Systolic (mm Hg) Lbuyjfgb13-Zeo-9938 13:0098.746tidxtgss260372XH Diastolic (mm Hg) Diastolic (mm Hg)BP Mean (mm Hg) Mean (mm Hg)Respiration (breaths/min) Respiration (breaths/min)SpO2 (%) SpO2 (%)Height(ft) Height (ft)[id number] (remainder in inches) Height (in)Height (cm) Height (cm)BSA (m2)BMI(kg/m2) BMI (kg/m2)Weight (lbs) Weight (lbs)4162.52.0234.3200Weigh t (kg) Weight (kg)Presence of PainPain Ifzwcf02.7complains of pain/discomfort6/10 PHYSICAL EXAMINATION: ? General Appearance [...] clinicallyindicated. Instructed to take Tylenol or Advil xfma-qhi-ukvwdmc as needed forfever and/or pain. No contraindications to NSAIDs are noted. Given aprescription for an Albuterol inhaler. Follow-up with her doctor in 4 days.Return if worse in any way. Discharged in stable condition with computerinstructions. Diagnostic Impression: 1. Acute viral URI. 2. Prescription therapy DIAGNOSES/PROBLEM LIST:Problem XyguDxcyHwbgmgJDI-3UAX-11? Acute URIED ZtMoefcm473.9J06.9 DISCHARGE DISPOSITION:? Disposition: discharged? Discharge Type: home [...] Findings:Chart was dictated with the use of [employer] software within the framework of [employer] electronic medical records software. Attempts were made to edit inreal time, given multiple time constraints. I personally evaluated patient and worked with Erasmo Duque, MARGY, [facility] care for this patient in the department, including supervision of thetreatment plan and diagnosis. Electronic Signatures:Malachi English) (Signed 24-Jul-2018 20:47)Authored: AttestationCo-Signer: Time Seen/ED Notes, Chief Complaint/Reason for Visit via TriageNote, Patient History, History Attestation, Physical Exam, Lab Results Review,Progress Note, ED Disposition (REQUIRED), AttestationErasmo Duque (PLASTER APPLICATOR-[facility]) (Signed 23-Jul-2018 14:37)Entered: Time Seen/ED Notes, Chief Complaint/Reason for Visit via Triage Note,Patient History, History Attestation, Vital Signs, Physical Exam, Lab ResultsReview, Progress Note, ED Disposition (REQUIRED), AttestationAuthored: Time Seen/ED Notes, Chief Complaint/Reason for Visit via TriageNote, Patient History, History Attestation, Physical Exam, Lab Results Review,Progress Note, ED Disposition (REQUIRED), Attestation Last Updated: 24-Jul-2018 20:47 by Malachi English () References:1. Data Referenced From Triage Note, Emergency 07/23/2018 1:00 PM2. Data Referenced From Provider Note - ED 06/07/2018 1:40 PM Normal [facility] Rstpon 07-23-2018 S. pyogenes Ag IA Ql (Unsp spec) Negative Normal Negative [facility] Auto Diffon 06-07-2018 Basophils/100 WBC Auto (Bld) 0.3 % Normal 0.0-2.4 [facility] Basophils/100 WBC Auto (Bld) 0.0 x10E9/L Normal 0.0-0.2 [facility] Eosinophils Auto #/vol (Bld) 0.1 10*3/uL Normal 0.0-0.5 [facility] Eosinophils/100 WBC Auto (Bld) 2.0 % Normal 0.7-6.5 [facility] Lymphocytes Auto #/vol (Bld) 1.7 10*3/uL Normal 1.1-3.5 [facility] Lymphocytes/100 WBC Auto (Bld) 27.7 % Normal 17.0-44.0 [facility] Monocytes Auto #/vol (Bld) 0.6 10*3/uL Normal 0.3-1.0 [facility] Monocytes/100 WBC Auto (Bld) 9.3 % Normal 5.3-12.5 [facility] Neutrophils Auto #/vol (Bld) 3.6 10*3/uL Normal 1.8-7.5 [facility] Neutrophils/100 WBC Auto (Bld) 60.7 % Normal 41.0-73.8 [facility] BMPon 06-07-2018 Anion gap 3 molar conc 11.0 mmol/L Normal 5.0-19.0 [facility] Bun/CretRatio 12.7 Normal [facility] Calcium mass conc 8.9 mg/dL Normal 8.1-10.1 [facility] Chloride molar conc 103 mmol/L Normal 98-107 [facility] CO2 molar conc 22 mmol/L Normal 22-32 [facility] Creatinine mass conc 0.55 mg/dL Low 0.60-1.30 [facility] Glucose mass conc 97 mg/dL Normal 70-100 [facility] Osmolality-Calc 270 mOsm/kg Normal [facility] Potassium molar conc 3.8 mmol/L Normal 3.4-5.1 [facility] Sodium molar conc 136 mmol/L Normal 136-144 [facility] Urea nitrogen mass conc 7 mg/dL Low 8-26 [facility] Mgon 06-07-2018 Magnesium mass conc 1.6 mg/dL Low 1.8-2.5 [facility] Provider Note - EDon 018 Protein mass conc TIME SEEN:? Time Gcgz64-Mtw-1603 13:29 CHIEF COMPLAINT/REASON FOR VISIT:? REASON FOR VISITPossible Seizure(1) HISTORY OF PRESENT ILLNESS - ADDITIONAL:? Eftfwfdky71-qexl-zut female presents with a complaint of seizure disorder.Patient stated that she began staring off and was unable to move and then fellforward onto the floor. She had a seizure that reportedly lasted anywhere nghi53-03 seconds. She was confused upon awakening. She [...] and is supposed to follow-up with the [facility]. ALLERGIES: Allergies:? Demerol HCl: Drug, seizure, Other(See [...] Medical History: Multiple Sclerosis(1) PAST SURGICAL HISTORY: /Clinical Reimbursement Specialist/Breast: SECTION(1)GI/Hepatobiliary: CHOLECYSTECTOMY(1) FAMILY HISTORY:Family History: reviewed [...] SiteHeart Rate (beats/min) beats/minBP Systolic (mm Hg) Peorzsrm05-Ycw-9264 13:3198.236.9qjaetzhw65087C P Diastolic (mm Hg) Diastolic (mm Hg)BP Mean (mm Hg) Mean (mm Hg)Respiration (breaths/min) Respiration (breaths/min)SpO2 (%) SpO2 (%)Height(ft) Height (ft)279256930Gbbdry (remainder in inches) Height (in)Height (cm) Height (cm)Height MethodHeight MethodWeight MethodBSA (m2)4162.6dyocwynqoaob4.06B DC (kg/m2) BMI (kg/m2)Weight (lbs) Weight (lbs)Weight (kg) Weight (kg)Presence of PainLocation Hxulyoth74.502042.3complain s of pain/discomfortheadPain Rating3/10 PHYSICAL EXAMINATION: ? [...] Forrester is/are the receiving Physician/LIP/Resident. DIAGNOSES/PROBLEM LIST:Problem PjgaWlyzMrmmjkLZF-3QSY-78? SeizureED JtAzklqo949.39R56.9 DISCHARGE DISPOSITION:? Disposition: discharged? Discharge Type: home [...] Last Updated: 08-Jun-2018 15:17 by Santiago Hou (DO) References:1. Data Referenced From Triage Note, Emergency 06/07/2018 1:31 PM2. Data Referenced From Provider Note - ED 04/21/2018 8:47 PM Normal [facility] RUMon 06-07-2018 Bacteria LM.HPF #/area (Urine sed) Trace Abnormal Negative [facility] Bilirubin mass conc Negative Normal Negative [facility] Blood Small Abnormal Negative [facility] Color Nom (U) Yellow Normal Yellow [facility] Glucose mass conc Negative Normal Negative [facility] Ketones Ql (U) 40 mg/dL Abnormal Negative [facility] Leukocyte Sandee Small Abnormal Negative [facility] Mucus LM Ql (Urine sed) FEW Abnormal [facility] Nitrite Test strip Ql (U) Negative Normal Negative [facility] pH Test strip (U) 7.5 [pH] Normal 4.8 - 8.0 [facility] Protein mass conc Trace Abnormal Negative [facility] RBC/Hpf 0-2 Normal 0-2 [facility] Squamous Epith MANY Abnormal FEW [facility] Ur Appearance Cloudy Abnormal Clear [facility] Urine Spec Piqua 1.015 Normal 1.001-1.03 [facility] Test strip Qn (U) 0.2 {Aleksandra'U}/dL Normal <1.0 [facility] WBC/Hpf 2-5 Normal 0-5 [facility] zCBCDon 06-07-2018 Erythrocyte distribution width Auto Ratio (RBC) 12.6 % Normal 11.4-16.0 [facility] Hematocrit Auto Volume Fraction (Bld) 37.5 % Normal 34.7-44.9 [facility] Hemoglobin mass conc (Bld) 13.0 g/dL Normal 11.3-15.6 [facility] MCH Auto Entitic mass (RBC) 30.7 pg Normal 26.5-33.0 [facility] MCHC Auto mass conc (RBC) 34.7 g/dL Normal 32.6-36.0 [facility] MCV Auto Entitic volume (RBC) 88.6 fL Normal 80.0-100.0 [facility] Mean Plt Vol 7.0 fL Low 7.2-10.3 [facility] Platelets Auto #/vol (Bld) 309 10*3/uL Normal 144-400 [facility] RBC Auto #/vol (Bld) 4.24 x10E12/L Normal 3.78-5.45 [facility] WBC Auto #/vol (Bld) 6.0 10*3/uL Normal 3.5-11.5 [facility] Provider Note - EDon 018 Protein mass conc Document Status Changed Normal [facility] Basic Metabolic Panelon Calcium 9.4 mg/dL Normal 8.4-10.2 [facility] [employer] [facility] Comment on above: Performed By: #### H EMOG, BMP3, ETOH4 ####[address] [address] [place] [address] Glucose mass conc 102 mg/dL High 70-100 [facility] Comment on above: Performed By: #### H EMOG, BMP3, ETOH4 ####[address] [place] [address] Anion gap 11 mmol/L Normal [facility] Comment on above: Performed By: #### H EMOG, BMP3, ETOH4 ####[address] [address] [place] [address] CO2 24 mmol/L Normal 22-30 [facility] Comment on above: Performed By: #### H EMOLaure, BMP3, ETOH4 ####[address] [address] Urea nitrogen 14 mg/dL Normal 7-20 [facility] Comment on above: Performed By: #### H EMOLaure, BMP3, ETOH4 ####[address] [place] [address] Creatinine 0.66 mg/dL Normal 0.52-1.25 [facility] Comment on above: Performed By: #### H EMOLaure, BMP3, ETOH4 ####[address] [place] [address] eGFR (black) mL/min/{1.73_m2} Normal >60 [facility] Comment on above: Performed By: #### H EMOG, BMP3, ETOH4 ####[address] [place] [address] eGFR (non-black) mL/min/{1.73_m2} Normal >60 [facility] Comment on above: Result Comment: Sour ce- MDRD equation with creatinine calibration to IDMS(NKDEP)eGFR not recommended for drug dose adjustment Performed By: #### H EMOG, BMP3, ETOH4 ####[address] [place] [address] Chloride 103 mmol/L Normal 98-107 [facility] Comment on above: Performed By: #### H EMOG, BMP3, ETOH4 ####[address] [place] [address] Potassium molar conc 4.3 mmol/L Normal 3.5-5.1 [facility] Comment on above: Performed By: #### H EMOG, BMP3, ETOH4 ####[address] [place] [address] Sodium 137 mmol/L Normal 137-145 [facility] Comment on above: Performed By: #### H EMOG, BMP3, ETOH4 ####[address] [place] [address] CR Chest 1 View Frontalon CR Chest 1 View Frontal Patient Name: GUS PLASCENCIA Diagnostic Radiology Exam Date/Time 10/07/2017 13:32:03 EST Exam CR Chest 1 View Frontal Ordering Physician MD ERNA, VALARIE Accession Number [id number] CPT4 Codes 99058 () Reason For Exam trauma Report PORTABLE [...] Transcribed Date and Time: 10/07/2017 1:52 Normal [facility] CR Knee 1 or 2 Views Righton 10-07-2017 CR Knee 1 or 2 Views Right Patient Name: GUS PLASCENCIA Diagnostic Radiology Exam Date/Time 10/07/2017 16:17:13 EST Exam CR Knee 1 or 2 Views Right Ordering Physician MD LEATHA, FIDENCIO Bhandari Accession Number [id number] CPT4 Codes 95617 () Reason For Exam trauma Report RIGHT [...] Transcribed Date and Time: 10/07/2017 4:40 Normal [facility] CR Pelvis 1 or 2 Viewson CR Pelvis 1 or 2 Views Patient Name: GUS ROLON Diagnostic Radiology Exam Date/Time 10/07/2017 13:32:03 EST Exam CR Pelvis 1 or 2 Views Ordering Physician MD UMANZOR ALEKSANDAR Accession Number [id number] CPT4 Codes 36060 () Reason For Exam trauma Report PELVIS: [...] Transcribed Date and Time: 10/07/2017 1:52 Normal [facility] CR Shoulder 2+ Views Righton 10-07-2017 CR Shoulder 2+ Views Right Patient Name: GUS PLASCENCIA Diagnostic Radiology Exam Date/Time 10/07/2017 16:17:13 EST Exam CR Shoulder 2+ Views Right Ordering Physician MD ZHANG NOLAN C. Accession Number [id number] CPT4 Codes 14734 () Reason For Exam trauma Report RIGHT [...] Transcribed Date and Time: 10/07/2017 4:39 Normal [facility] CR Spine Cervical 2 or 3 Vie wson 10-07-2017 CR Spine Cervical 2 or 3 Views Patient Name: GUS PLASCENCIA Diagnostic Radiology Exam Date/Time 10/07/2017 16:17:13 EST Exam CR Spine Cervical 2 or 3 Views Ordering Physician MD LEATHA, FIDENCIO Bhandari Accession Number [id number] CPT4 Codes 90497 () Reason For Exam trauma Report CERVICAL [...] Transcribed Date and Time: 10/07/2017 4:40 Normal [facility] CT Chest/Abdomen/Pelvis (IV Only)on 10-07-2017 CT Chest/Abdomen/Pelvis (IV Only) Patient Name: GUS PLASCENCIA CT Exam Date/Time 10/07/2017 13:34:[address] Chest/Abdomen/Pelvis (IV Only) Ordering Physician MD UMANZOR ALEKSANDAR Accession Number [id number] CPT4 Codes 10587 (CT Chest/Abdomen/Pelvis (IV Only)), 02174 (CT Chest w/ Contrast), Q9967 () Reason [...] Transcribed Date and Time: 10/07/2017 1:45 Normal [facility] CT Head or Brain w/o Contras ton 10-07-2017 CT Head or Brain w/o Contrast Patient Name: GUS PLASCENCIA CT Exam Date/Time 10/07/2017 13:33:[address] Head or Brain w/o Contrast Ordering Physician MD UMANZOR ALEKSANDAR Accession Number [id number] CPT4 Codes 39953 () Reason For Exam HEADACHE, POST TRAUMA [...] Transcribed Date and Time: 10/07/2017 1:44 Normal [facility] CT Spine Cervical w/o Contra ston 10-07-2017 CT Spine Cervical w/o Contrast Patient Name: GUS PLASCENCIA CT Exam Date/Time 10/07/2017 13:33:[address] Spine Cervical w/o Contrast Ordering Physician MD ERNA, VALARIE Accession Number [id number] CPT4 Codes 46883 () Reason For Exam C-SPINE TRAUMA, NEXUS/CCR [...] Dictated: 10/07/2017 1:49 pm Dictating Physician: MD CHUCHO, [facility] Signed Date and Time: 10/07/2017 2:02 pm Signed by: MD CHUCHO, AHMAD Transcribed Date and Time: 10/07/2017 1:49 Normal [facility] Ethanol Serum/Plasmaon 10-07 Ethanol-Serum/Plasma <0.010 Normal 0.000-0 .01 0 [facility] Comment on above: Result Comment: NOTE : This result is for medical treatment only.Analysis performed using non-forensic procedures. Performed By: #### H EMOG, BMP3, ETOH4 ####[place] [address] Hemogramon 10-07-2017 Erythrocyte distribution width Auto Ratio (RBC) 12.9 % Normal 11.5-14.5 [facility] Comment on above: Performed By: #### H EMOG, BMP3, ETOH4 ####[address] [address] Erythrocytes (RBC) 4.76 10*6/uL Normal 3.80-5.20 [facility] Comment on above: Performed By: #### H EMOG, BMP3, ETOH4 ####[address] [address] Hematocrit (HCT) 41.6 % Normal 35.0-47.0 [facility] Comment on above: Performed By: #### H EMOG, BMP3, ETOH4 ####[address] [address] Hemoglobin mass conc (Bld) 14.4 g/dL Normal 11.7-16.0 [facility] Comment on above: Performed By: #### H EMOG, BMP3, ETOH4 ####[address] [address] MCH 30.2 pg Normal 26.0-34.0 [facility] Comment on above: Performed By: #### H EMOG, BMP3, ETOH4 ####[address] [address] MCHC mass conc (RBC) 34.6 % Normal 32.0-36.0 [facility] Comment on above: Performed By: #### H EMOG, BMP3, ETOH4 ####[address] [address] MCV 87.3 fL Normal 79.0-98.0 [facility] Comment on above: Performed By: #### H JORDON, BMP3, ETOH4 ####[address] [address] Platelet mean volume (PMV) 7.3 fL Low 7.4-10.4 [facility] Comment on above: Performed By: #### H JORDON BMP3, ETOH4 ####[address] [address] Platelets 289 10*3/uL Normal 140-440 [facility] Comment on above: Performed By: #### H JORDON BMP3, ETOH4 ####[address] [address] WBC (Leukocytes) 6.1 10*3/uL Normal 3.6-10.7 [facility] Comment on above: Performed By: #### H JORDON BMP3, ETOH4 ####[address] [address] TS GELon 10-07-2017 TS GEL PATIENT: THAIS [facility] LOC: 1EDE,1EWB,72BILL# : [id number] : 1985 SEX: F AGE: 32ORDERED BY: CATHY Black ORDERED : 10/07/2017 13:27 COLLECTED: 10/07/2017 13:14ORDER : [id number] RECEIVED : 10/07/2017 13:27 --TEST NAME RESULT UNITS RANGES ABN FL STABO Group A FRh, Gel POS FAntibody Screen Gel NEG F Normal [facility] Comment on above: Performed By: #### T SGL ####[address] [place] [address] CNOVon 04-03-2017 CNOV Office Visit (AGEXKENT) ---------GUS PLASCENCIA ([id number]) 1985 FDate Time Provider Department04/03/17 3:00 PM CHU GRIFFIN) SUSHMA During your visit today, we recorded the following information about you:ALETA Herbert 04/03/2017 3:48 PM SignedThe patient left without being seen.FORTUNATO Herbert-CReferring Provider: SELF [200]Allergies As of Date: 04/03/2017 Noted Allergy ReactionPENICILLIN 10/05/2016 4 - Hives 10 - AnaphylaxisTRAMADOL 10/05/2016 4 - Hives 10 - AnaphylaxisDate Reviewed: 10/05/2016Reviewed by: Aishwarya Conti - Fully AssessedReason for Visit: Patient Left Without Being Seen [2006]Primary Visit Diagnosis:Patient left without being seen [Z53.21]Prescriptions as of 04/03/2017 Sig: LEVETIRACETAM 750 MG TABLET Take 750 mg by mouth. AZITHROMYCIN 250 MG TABLET Take two tablets by mouth the*Problem List As Of Date: 04/03/2017(None)Level of Service: OFFICE VISIT NO CHARGE WITH PROCEDURE [2163806] Status:Closed by CHU ARCHULETA on 04/03/17 [facility] PROGRESSon 04-03-2017 PROGRESS HNO ID: [id number] Author: Chu Griffin (Fnp-C) Service: (none) Author Type: Nurse Practitioner Type: Progress Notes Filed: 04/03/2017 3:48 PM Note Text: The patient left without being seen. ALETA Herbert Normal [facility] Vital Signs Date Time Vital Sign Value Performing Clinician Facility 07-01-2023 10:03-0400 Diastolic blood pressure 72 mm[Hg] Ashish Hawley [facility] 07-01-2023 10:03-0400 Heart rate 61 /min Ashish Hawley [facility] 07-01-2023 10:03-0400 SaO2% (BldA) [Mass fraction] 98 % Ashish Hawley [facility] 07-01-2023 10:03-0400 Systolic blood pressure 105 mm[Hg] Ashish Hawley [facility] 06-27-2023 10:11-0400 Body temperature 97.52 [degF] [facility] 06-27-2023 10:11-0400 Diastolic blood pressure 80 mm[Hg] [facility] 06-27-2023 10:11-0400 Heart rate 63 /min [facility] 06-27-2023 10:11-0400 Respiratory rate 16 /min [facility] 06-27-2023 10:11-0400 SaO2% (BldA) [Mass fraction] 98 % [facility] 06-27-2023 10:11-0400 Systolic blood pressure 123 mm[Hg] [facility] 06-18-2023 14:43-0400 Body height 163.83 cm Referring Provider Unknown [facility] Work Phone: 06-18-2023 14:43-0400 Body mass index (BMI) [Ratio] 30.12 kg/m2 Referring Provider Unknown [facility] Work Phone: 06-18-2023 14:43-0400 Body surface area Derived from formula 1.87 m2 Referring Provider Unknown - [facility] Work Phone: 06-18-2023 14:43-0400 Body weight 80.85 kg Referring Provider Unknown [facility] Work Phone: 06-18-2023 14:43-0400 Diastolic blood pressure 70 mm[Hg] Referring Provider Unknown [facility] Work Phone: 06-18-2023 14:43-0400 Heart rate 77 /min Referring Provider Unknown [facility] Work Phone: 06-18-2023 14:43-0400 SaO2% (BldA) [Mass fraction] 98 % Referring Provider Unknown [facility] Work Phone: 06-18-2023 14:43-0400 Systolic blood pressure 131 mm[Hg] Referring Provider Unknown [facility] Work Phone: 06-13-2023 17:45-0400 Body temperature 97.88 [degF] Cooper Juarez [facility] 06-13-2023 17:45-0400 Diastolic blood pressure 76 mm[Hg] Cooper Juarez [facility] 06-13-2023 17:45-0400 Heart rate 51 /min Cooper Juarez [facility] 06-13-2023 17:45-0400 Respiratory rate 20 /min Cooper Juarez [facility] 06-13-2023 17:45-0400 SaO2% (BldA) [Mass fraction] 97 % Cooper Juarez [facility] 06-13-2023 17:45-0400 Systolic blood pressure 132 mm[Hg] Cooper Juarez [facility] 06-10-2023 13:39-0400 Body temperature 98.24 [degF] Ashish Cruz [facility] 06-10-2023 13:39-0400 Diastolic blood pressure 68 mm[Hg] Ashish Cruz [facility] 06-10-2023 13:39-0400 Heart rate 79 /min Ashish Cruz [facility] 06-10-2023 13:39-0400 Respiratory rate 18 /min Ashish Cruz [facility] 06-10-2023 13:39-0400 SaO2% (BldA) [Mass fraction] 98 % Ashish Cruz [facility] 06-10-2023 13:39-0400 Systolic blood pressure 124 mm[Hg] Ashish Cruz [facility] 04-08-2023 21:00-0400 Body temperature 98.3 [degF] MD Maru Kramer Work Phone: [facility] 04-08-2023 21:00-0400 Diastolic blood pressure 71 mm[Hg] MD Maru Kramer Work Phone: [facility] 04-08-2023 21:00-0400 Heart rate 46 /min MD Maru Kramer Work Phone: [facility] 04-08-2023 21:00-0400 Respiratory rate 18 /min MD Maru Kramer Work Phone: [facility] 04-08-2023 21:00-0400 SaO2% (BldA) [Mass fraction] 100 % MD Maru Kramer Work Phone: [facility] 04-08-2023 21:00-0400 Systolic blood pressure 122 mm[Hg] MD Maru Kramer Work Phone: [facility] 04-08-2023 19:46-0400 Body height 162.56 cm MD Maru Kramer Work Phone: [facility] 04-08-2023 19:46-0400 Body weight 91.1 kg MD Maru Kramer Work Phone: [facility] 03-12-2023 09:45-0400 Body height 163.83 cm Maru Kramer Other [employer] Other 03-12-2023 09:45-0400 Body mass index (BMI) [Ratio] 33.12 kg/m2 Maru Kramer Other [employer] Other 03-12-2023 09:45-0400 Body weight 88.91 kg Maru Kramer Other [employer] Other 03-12-2023 09:45-0400 Diastolic blood pressure 84 mm[Hg] Maru Kramer Other [employer] Other 03-12-2023 09:45-0400 SaO2% (BldA) [Mass fraction] 99 % Maru Kramer Other [employer] Other 03-12-2023 09:45-0400 Systolic blood pressure 124 mm[Hg] Maru Kramer Other [employer] Other Encounters Encounter Date Encounter Type Care Provider Facility Start: 12-17-2023 End: 12-18-2023 ambulatory Kong Talal Margaritomini Facility:[facility] Start: 12-17-2023 End: 12-17-2023 Patient encounter procedure Kong Talal Margaritomini [facility] Start: 11-26-2023 End: 11-27-2023 ambulatory AIR TWIST OPERATOR Evette L Bev Facility: [facility] Start: 10-31-2023 End: 11-01-2023 ambulatory AIR TWIST OPERATOR Evette L Bev Facility:[facility] Start: 10-28-2023 End: 10-29-2023 ambulatory AIR TWIST OPERATOR Evette L Bev Facility: [facility] Start: 10-13-2023 ambulatory Kong Sarmini Facili ty:[facility] Start: 10-10-2023 End: 10-11-2023 ambulatory AIR TWIST OPERATOR Evette L Bev Facility: [facility] Start: 09-30-2023 End: 10-01-2023 ambulatory AIR TWIST OPERATOR Evette L Bev Facility:[facility] Start: 09-25-2023 ambulatory Kong Sarmini Facili ty:[facility] Start: 07-01-2023 End: 07-02-2023 ambulatory Ashish Hawley Facility:[facility] Start: 07-01-2023 End: 07-01-2023 Patient encounter procedure Ashish Hawley [facility] Start: 06-27-2023 End: 06-27-2023 Emergency department patient visit Kristie Burns Darlin Facility:[facility] Start: 06-27-2023 End: 06-27-2023 Emergency department patient visit [facility] [place] Darlin [facility] Start: 06-26-2023 Result Review Referring Prov ider Unknown MP- [facility] Work Phone: Start: 06-24-2023 Chart Update Referring Prov ider Unknown MP-[facility] Work Phone: Start: 06-18-2023 Office outpatient ne w 45 minutes Referring Provider Unknown - [facility] Work Phone: Start: 06-18-2023 Patient encounter procedure Referring Provider Unknown - [facility] Work Phone: Start: 06-18-[address] Naz Esposito Facility:[id number] Start: 06-13-2023 End: 06-13-2023 Emergency department patient visit Cooper Juarez Facility:[facility] Start: 06-13-2023 End: 06-13-2023 Emergency department patient visit Cooper Juarez [facility] Start: 06-13-2023 Telephone encounter Azra Holley RN Hematology/Oncology Comment on above: Derm Problem; Patien t Question Start: 06-10-2023 End: 06-10-2023 Emergency department patient visit Ashish Cruz Facility:[facility] Start: 06-10-2023 End: 06-10-2023 Emergency department patient visit Ashish Cruz [facility] Start: 05-07-2023 End: 05-07-2023 ambulatory Maru Kramer Other [employer] Other Start: 05-07-2023 Telephone encounter Maru Kramer [facility] 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 Work Phone: Start: 04-07-2023 End: 04-07-2023 ambulatory Justina Liz Other [employer] Other Start: 04-07-2023 Telephone encounter Justina Liz [facility] Start: 03-26-2023 ambulatory Chu Solares C linical Communication Start: 03-26-2023 Patient encounter procedure Chu Rios RN [facility] Start: 03-17-2023 End: 03-17-2023 ambulatory Maru Kramer Other [employer] Other Start: 03-17-2023 Telephone encounter Maru Kramer [facility] Start: 03-13-2023 End: 03-13-2023 ambulatory Maru Williams Other [employer] Other Start: 03-13-2023 Telephone encounter Maru Kramer [facility] Start: 03-12-2023 Office outpatient ne w 45 minutes Maru Kramer [facility] Start: 03-12-2023 End: 03-12-2023 ambulatory Maru Kramer [facility] Work Phone: Start: 03-12-2023 End: 03-12-2023 Departed Referred MD Maru Kramer Work Phone: [facility] [place] Work Phone: Start: 10-06-2022 End: 10-06-2022 ambulatory BAUDILIO OTT . Facility:[facility] Start: 08-14-2022 Telephone encounter Timur bernard MD Work Phone: General Surgery Comment on above: Release Of Medical R ecords Start: 07-01-2022 End: 07-01-2022 ambulatory QIANA GUNDERSON . Facility:[facility] Start: 02-18-2022 End: 02-18-2022 Patient encounter procedure Kimberley Park [facility] Start: 09-25-2018 End: 09-25-2018 Emergency department patient visit NONE [facility] Start: 07-23-2018 End: 07-23-2018 Emergency department patient visit NONE [facility] Start: 06-07-2018 End: 06-07-2018 Emergency department patient visit NONE [facility] Start: 04-21-2018 End: 04-21-2018 Emergency department patient visit NONE [facility] Start: 10-07-2017 Ambulatory UNKNOWN PROVIDER [facility] Start: 10-07-2017 Emergency department patient visit Manolo Eckert [facility] Procedures Date Procedure Procedure Detail Performing Clinician Start: 04-08-2023 Plain chest X-ray MD Ehsan Kramer Work Phone: Start: 03-12-2023 Aerobic microbial culture MD Maru Kramer Work Phone: Start: 03-12-2023 Anaerobic microbial culture MD Maru Kramer Work Phone: Start: 03-12-2023 Investigation of tra nsfusion reaction MD Maru Kramer Work Phone: Start: 06-18-2016 Ligation of fallopian tube Kimberley Park Start: 01-27-2009 gallbladder Kimberley Pride er section Kimberley Miroslava r section Referring P rovider Unknown Comment on above: x2; Cholecystectomy Referring Pr lara Unknown Plan of Treatment Date Care Activity Detail Author Start: 2036 Zoster Vaccines (1 of 2) Zoste r Vaccines (1 of 2) [facility] Start: 05-30-2023 Influenza vaccination [facility] Start: 04-28-2023 End: 04-28-2023 Patient encounter procedure 04/28/2023 12:00 PM EDT Office Visit [facility] [address] [place] [address] [address] [place] [address] Anselmo Calvillo MD [address] [place] [address] [address] [place], [place] [id number] [facility] Start: 03-12-2023 Aerobic Culture Aerobic Culture [facility] Start: 03-12-2023 Anaerobic Culture Anaerobic Culture [facility] Start: 03-12-2023 Microscopic observat ion [Identifier] in Unspecified specimen by Gram stain [facility] Start: 03-12-2023 [facility] Start: 09-29-2022 Depression Assessment Depression Ass [facility] Start: 05-30-2022 Influenza vaccination INFLUENZA (#1) [facility] Start: 04-15-2022 COVID-19 Vaccine (2 - Booster for Ramandeep series) COVID-19 Vaccine (2 - Booster for Ramandeep series) [facility] Start: 09-29-2021 DEPRESSION ASSESSMENT DEPRESSION ASS [facility] Start: 2016 HPV TESTING HPV TESTING [facility] Start: 2016 Screening for malign ant neoplasm of cervix [facility] Start: 2007 PAP TESTING PAP TESTING [facility] Start: 2007 Screening for malign ant neoplasm of cervix Pap Smear [facility] Start: 2005 DTaP/Tdap/Td Vaccine s (1 - Tdap) DTaP/Tdap/Td Vaccines (1 - Tdap) [facility] Start: 2005 Urine microalbumin profile [facility] Start: 2004 HEPATITIS C SCREENING HEPATITIS C SC REENING [facility] Start: 2004 Hepatitis C screening Hepatitis C Sc [facility] Start: 2004 HIV SCREENING HIV SCREENING [facility] Start: 1998 Depression Screening Depression Scre ening [facility] Start: 1987 MMR Vaccines (1 of 1 - Standard series) MMR Vaccines (1 of 1 - Standard series) [facility] Start: 1987 Varicella vaccination Varicell a Vaccines (1 of 2 - 2-dose childhood series) [facility] Start: 02-20-1987 COVID-19 VACCINE (#1) COVID-19 VACCI NE (#1) [facility] Start: 1986 HEPATITIS B (1 of 3 - 3-dose series) HEPATITIS B (1 of 3 - 3-dose series) [facility] Start: 1986 Hepatitis B Vaccine (1 of 3 - 3-dose series) Hepatitis B Vaccine (1 of 3 - 3-dose series) [facility] Start: 1986 Hepatitis B Vaccines (1 of 3 - 3-dose series) Hepatitis B Vaccines (1 of 3 - 3-dose series) [facility] Start: 1986 HIV screening HIV Screening [facility] Bacteria identified in Unspecified specimen by Aerobe culture [facility] Bacteria identified in Unspecified specimen by Anaerobe culture [facility] Patient Education Chest Pain [facility] Work Phone: Patient referral [facility] Immun[facility] Immun[facility] Date Immunization Notes Care Provider Fa cility 02-18-2022 COVID-19 vaccine, vector-nr, rS-Ad26, PF, 0.5 mL Kimberley Park [facility] 03-07-2020 influenza virus vaccine, unspecified formulation Azra Holley RN [facility] 04-04-2012 tetanus toxoid, reduced diphtheria toxoid, and acellular pertussis vaccine, adsorbed Kimberley Park [facility] Comment on above: Reason for Medicatio n: Other (see comment) NEGATED: Highlighted row has not occurred!12-15-2023 influenza virus vaccine, unspecified formulation Dilan Rodriguez [facility] NEGATED: Highlighted row has not occurred!07-01-2023 influenza virus vaccine, unspecified formulation Ashish Hawley [facility] [place] Payers Date Payer Category Payer Unknown [id number] 2023 Unknown [id number] 2023 Unknown [id number] 2023 Self-pay [id number] 2022 Medicaid [id number] 2. [id number] 2017 Medicaid [id number] 1986 Unknown [id number] 2.16.8 40.1.641075.3.579.2.662 1986 Unknown [id number] 2.16.8 40.1.976892.3.579.2.662 1986 Unknown [id number] 2.16.8 40.1.853477.3.579.2.662 1986 Unknown [id number] 2.16.8 40.1.378354.3.579.2.662 1986 Unknown [id number] 2.16.84 0.1.123920.3.579.2.593 1986 Unknown [id number] 2.16.84 0.1.505055.3.579.2.593 1986 Unknown [id number] 2.16. 840.1.270065.3.579.2.356 1986 Unknown [id number] 2.16.8 40.1.188879.3.579.2.727 1986 Unknown [id number] 2.16.8 40.1.666752.3.579.2.727 1986 Unknown [id number] 2.16.8 40.1.583393.3.579.2.727 1986 Unknown [id number] 2.16.8 40.1.250663.3.579.2.727 1986 Unknown [id number] 2.16.8 40.1.522442.3.579.2.727 1986 Unknown [id number] 2.16.8 40.1.571212.3.579.2.727 1986 Unknown [id number] 2.16.8 40.1.677855.3.579.2.727 1986 Unknown [id number] 2.16.8 40.1.061055.3.579.2.727 1986 Unknown [id number] 2.16.8 40.1.548660.3.579.2.727 1986 Unknown [id number] 2.16.8 40.1.076515.3.579.2.727 1959 Private Health Insurance [id number] 1959 Unknown [id number] Unknown Unknown [id number] 2.16.8 40.1.440214.3.579.2.531 Unknown [id number] 2.16.8 40.1.013755.3.579.2.531 Social History Date Type Detail Facility Start: 11-13-2021 End: 10-10-2023 Tobacco smoking status [facility] Comment on above: Pt denies Start: 09-17-2022 End: 03-26-2023 Sex Assigned At [place] [facility] End: 10-05-2018 History of tobacco use Current smoker [facility] End: 10-05-2018 History of tobacco use Cigarette Smoker [facility] Start: 02-15-2021 Tobacco use and exposure Smokeless tobacco non-user [facility] Start: 03-12-2021 End: 09-17-2022 Alcohol intake Current non-drinker of alcohol (finding) [facility] Start: 06-18-2017 Tobacco Comment 3 cig/day [facility] Start: 1986 Sex Assigned At Female [facility] Start: 07-03-2020 Tobacco smoking stat [facility] Current some day smoker [facility] Start: 09-17-2022 End: 03-26-2023 History of Social function [facility] Start: 1986 Sex Assigned At Not on file S [facility] Start: 04-08-2023 [facility] Never smoked tobacco (finding) [facility] Adult Depression Screening Assessment 0 [facility] Comment on above: Pt denies Start: 06-12-2021 Gender identity Identifies as female gender (finding) [facility] Functional Status Date Assessment Result Facility 06-27-2023 Functional Status N/A [facility] 06-13-2023 Functional Status N/A [facility] 06-10-2023 Functional Status N/A [facility] Clinical Notes 08-14-2022 to 08-12-2023 Radiology Note Date & Type Note Facility 08-12-2023 Evaluation + Plan note Future Scheduled TestsMA Mamm Diag w/CAD if perf and 3D Deepak 08/12/23 [facility] 06-27-2023 Hospital Discharg e instructions Patient Education [...] Follow these instructions at home: Medicines Take orky-bcj-hcfzksb and prescription medicines only as told by [...] such as antibiotic medicines or antihistamines. Take wslc-imy-xbidzui and prescription medicines only as told by [...] provider. Document Revised: 06/27/2022 Document Reviewed: 06/27/2022 [employer] Patient Education 2022 [employer] Follow Up Care 06/27/2023 09:53:17 With:Ashish Halwey Address:Unknown When:06/30/2023 11:32:41 [facility] 06-27-2023 Evaluation + Plan note Extrac linwood from: Title:ED Note Author:Tyrese Thompson PA-C te:06/27/23 Cellulitis of breast (N61.0: Mastitis without abscess) Ulcer of skin of breast (L98.499: Non-pressure chronic ulcer of skin of other sites with unspecified severity) Orders: clindamycin, 300 mg = 2 cap(s), Oral, QID, X 10 day(s), # 80 cap(s), Refills(s) 0, Pharmacy: [facility]/pharm[facility] #[id number], 162, cm, 06/27/23 10:15:00 EDT, Height/Length Dosing, 77.5, kg, 06/27/23 10:15:00 EDT, Weight Dosing Future Appointments Appointment Date:07/01/2023 10:00:00 AM Scheduled Provider:Ashish Hawley MD Location:[facility] Appointment Type: Established 15 Appointment Date:07/02/2023 01:15:00 PM Scheduled Provider: Location:.MAMMOGRAM Appointment Type:MA Diagnostic (FT) Appointment Date:07/02/2023 02:30:00 PM Scheduled Provider: Location:.ULTRASOUND Appointment Type:US Breast (FT) Future Scheduled Tests Radiology* US Breast Unilateral Rt Complete 07/02/23 * MA Mamm Diag w/CAD if perf and 3D Deepak 07/02/23 [facility]09-23-2023 NoteMicrobiology PROCEDURE: Blood Culture Charcoal [R1] SOURCE: Blood BODY SITE: Wrist R COLLECTED DATE/TIME: 06/13/2023 19:30 EDT RECEIVED DATE/TIME: 06/13/2023 20:46 EDT START DATE/TIME: 06/13/2023 20:46 EDT FREE TEXT SOURCE: IV start Mikhail VALLES, Jose Ramirez. Mikhail VALLES, Jose Ramirez. FINAL REPORTS Final Report [] Verified Date/Time: 06/21/2023 07:00 EDT No growth at 7 days. Performing Locations R1: This test was performed at: [facility], [address] [place] [address], [id number]- , , QmcfabHenry County HospitalComment on above:Performed By: #### [id number] ####[facility] [address] [place], [place] [id number] NoteMicrobiology PROCEDURE: Blood Culture Charcoal [R1] SOURCE: Blood BODY SITE: Arm R COLLECTED DATE/TIME: 06/13/2023 19:03 EDT RECEIVED DATE/TIME: 06/13/2023 19:20 EDT START DATE/TIME: 06/13/2023 19:20 EDT FREE TEXT SOURCE: Jose Elizondo PA-C. Mikhail VALLES, Jose Ramirez. FINAL REPORTS Final Report [] Verified Date/Time: 06/20/2023 20:25 EDT No growth at 7 days. Performing Locations R1: This test was performed at: [facility], [address] [place] [address], [address] [place] [address], QynaqpHenry County HospitalComment on above:Performed By: #### [id number] ####[place] [id number] [place], [place] [id number] Miscellaneous Notes* Telephone Encounter - Evette José [...] for a longer appointment. Thanks, Gloria Babcock APRN.CNP * Telephone Encounter - Azra Holley RN [...] referral. Azra Holley RN [facility] Hospital Discharge instructions Patient Education 06/13/2023 21:11:14 Cellulitis, Adult, Xbjw-lc-Kbsq Cellulitis, Adult Cellulitis is a skin infection. [...] Follow these instructions at home: Medicines Take hxvq-mxs-fyacsdy and prescription medicines only as told by [...] provider. Document Revised: 06/27/2022 Document Reviewed: 06/27/2022 [employer] DD Patient Education 2022 [employer] Follow Up Care 06/13/2023 17:38:32 With:[facility] [phone] [facility] [phone] [facility] [phone] Address:Unknown When:06/16/2023 20:33:39 With:Dr Meredith Hairston [phone] [facility] [phone] Address:Unknown When:06/16/2023 20:33:06 With:XXXX NONE Address: [place] When:06/16/2023 20:32:59 [facility]09-15-2023 Evaluation + Plan noteExtracted from: Title:ED Note Author:Jose Elizondo PA-C te:06/13/23 Breast pain (N64.4: Mastodyn ia) Cellulitis [...] Nausea/Vomiting, # 12 tab(s), Refills(s) 0, Pharmacy: [id number], 162, cm, 06/13/23 17:51:00 EDT, Height/Length Dosing, 6.5, kg, 06/13/23 17:51:00 EDT, Weight Dosing Automated Diff Basic Metabolic Panel Blood Culture Charcoal Blood Culture Charcoal CBC w/ Auto Diff eGFR Lactic Acid PT & PTT Troponin 0 Hr. XR Chest Single View Diagnostic Tests Pending * Blood Culture Charcoal 06/13/23 * Blood Culture Charcoal 06/13/23 [facility]09-12-2023 Hospital Discharge instructions Follow Up Care 06/10/2023 13:26:24 With:[facility] [phone] [facility] [phone] [facility] [phone] Address:Unknown When:06/13/2023 14:29:51 With:Dr Meredith Hairston [phone] [facility] [phone] Address:Unknown When:06/13/2023 13:59:24 With:KATHRYN MINAYA Address: [address] [place] [phone] Business (1) When:Within 3 Day(s) [facility]06-28-2023 Telephone encounter Note* Telephone Encounter - Chu Rios RN - 03/26/2023 4:53 PM EDT S: Caller spoke with [facility] nurse regarding multiple issues. B: Onset of [...] Protocols used: Information Only Call - No [id number] [facility] [id number] Miscellaneous Notes* Telephone Encounter - Chu Rios RN - 03/26/2023 4:53 PM EDT S: Caller spoke with [facility] nurse regarding multiple issues. B: Onset of symptoms/concern: Not an established patient A: Caller states she has been to several doctors but no one seems to be able to help her, calling regarding multiple issues, Hx- MS, looking for someone to possibly help her. R: Caller scheduled on 04/28/23 to establish care with Andreea HELMS, insurance coverage verified. Patient placed on wait list in case of a cancellation. Reason for Disposition Requesting regular office appointment Protocols used: Information Only Call - No Jltbra-ICJHM-AF documented in this [place] [id number] Evaluation note* Encounter Date Diagnosis Assessment Notes Treatment Notes Treatment Clinical Notes Feb, Subareolar mass of right breast (ICD-10 - N63.41) antibiotic, diagnostic mamm, obtain notes from [facility]. Feb, MS (multiple sclerosis) (ICD-10 - G35) Establish with Neurologist in area Feb, Seizure (ICD-10 - R56.9) as above. [employer] Other 11-16-2022 Miscellaneous Notes* Telephone Encounter - Kat Valera - 08/14/2022 10:14 AM EST Nikky from Dr Ashish Paniagua's office called requesting records from Dr Hodges, office notes and images if any. # [phone] fax # [phone] Thank you. documented in this encounterAvita Health SystemEvaluation + Plan note No data available for this section [facility] Evaluation + Plan note Future Appointments Appointment Date:07/16/2023 09:15:00 AM Scheduled Provider: Location:FT.MAMMOGRAM Appointment Type:MA Diagnostic (FT) Appointment Date:07/16/2023 10:00:00 AM Scheduled Provider: Location:FT.ULTRASOUND Appointment Type:US Breast (FT) Future Scheduled Tests Radiology* US Breast Unilateral Rt Complete 07/16/23 * MA Mamm Diag w/CAD if perf and 3D Deepak 07/16/23 [facility] [place] Evaluation noteNo assessment information available [facility] Work Phone: Evaluation noteNo InformationNort Zokem Other History general Narrative - Reported* Type Description Date Medical History MS 2012 Medical History Epilepsy 2004 Medical History Asthma childhood Surgical History C-sect 2012 Surgical History C-sect 2016 Surgical History Cholocystectomy 2009 [employer] Other History general Narrative - Reported* Type Description Date Medical History MS 2012 Medical History Epilepsy 2004 Medical History Asthma childhood Surgical History C-sect 2012 Surgical History C-sect 2016 Surgical History Cholocystectomy 2009 Hospitalization History SEE SURGICAL HX [employer] Other Hospital Discharge instructions No data available for this section [facility] Hospital Discharge instructions Additional Instructions Avoid heavy lifting Apply moist compresses to your left side of your chest Tylenol or Naprosyn if needed for pain Follow with your PCP call tomorrow for appointment Please return here if you develop any shortness of breath numbness, tingling, unilateral weakness, dizziness or any otherFirKettering Health [facility] Work Phone: Progress note No data available for this section [facility] (narrative) Referred by: Marleen LORENZO, Ashish Alvarenga [facility] [place] Summary Purpose Family History No Family History [...] Referral Reason Dr. Crenshaw [facility]. Not presently on med for seizures or MS. Diagnosis 1 MS (multiple scleros is) (G35) Referral Organization [facility] Karen thompson Referring Provider First Name Maru Referring Provider Last Name Williams Referring Provider Specialty Family [facility] Referred Organization [facility] Referred Address [address], [place],[address] Referred Provider Specialty Neurology Referral Priority Routine Chief Complaint and Reason for Visit Chief Complaint N63.41 chest pain/low HR Additional Source Comments INFORMATION SOURCE (unrecogn ized section and content) DATE CREATED AUTHOR 03/23/2018 [facility] DATE CREATED AUTHOR AUTHOR'S ORGANIZ ATION 03/24/2018 [facility] DATE CREATED AUTHOR AUTHOR'S ORGANIZ ATION 03/25/2018 [facility] DATE CREATED AUTHOR AUTHOR'S ORGANIZ ATION 10/02/2018 [facility] DATE CREATED AUTHOR AUTHOR'S ORGANIZ ATION 03/07/2023 [facility] DATE CREATED AUTHOR AUTHOR'S ORGANIZ ATION 03/28/2023 [facility] DATE CREATED AUTHOR AUTHOR'S ORGANIZ ATION 04/09/2023 [facility] DATE CREATED AUTHOR AUTHOR'S ORGANIZ ATION 06/19/2023 [facility] DATE CREATED AUTHOR AUTHOR'S ORGANIZ ATION 06/20/2023 [facility] DATE CREATED AUTHOR AUTHOR'S ORGANIZ ATION 12/18/[address] [facility] Source Comments (unrecognize d section and content) In the event this informatio n is protected by the Federal Confidentiality of Alcohol and Drug Abuse Patient Records regulations: The Federal rules restrict any use of the information to criminally investigate or prosecute any alcohol or drug abuse patient.Rubalcava ClinicIn the event this information is protected by the Federal Confidentiality of Alcohol and Drug Abuse Patient Records regulations: The Federal rules restrict any use of the information to criminally investigate or prosecute any alcohol or drug abuse patient.[facility] Reason for Visit (unrecogniz ed section and content) Reason Comments Release Of Medical Records Reason Onset Date Comments New Patient 03/26/2023 Reason Comments Derm Problem Patient Question Care Teams (unrecognized sec tion and content) Biological Chemist Relationship Specialty Start Date End Date Jocelyn Tsai [address] [place] [address] PCP - General Family Medicine 06/08/15 Kathryn Minaya [address] [place] [address] Referring Family Medicine 02/13/21 Ashish Hawley MD [address] [place] [address] General Surgery 08/14/22 Team Status: Inactive Member [...] Active Katherine Zamarripa APRN Emergency Provider Active Biological Chemist Relationship Specialty Start Date End Date Fracisco Goodwin DO [address] [place] [address] PCP - General 10/08/22 Kathryn Minaya, LOCK MAINTENANCE SUPERVISOR [address] [id number] Referring Family Medicine 02/13/21 Ashish Hawley MD [address] [place] [address] General Surgery 08/14/22 Goals (unrecognized section and [...] BE BASED ON THE PRIMARY CLINICAL RECORDS. [employer] provides no warranty or guarantee of the accuracy or completeness of information in this document.
[2024-01-20] MEDS: ONDANSETRON PF 4 MG/2 ML VIAL IV ×2 (13:37→14:53)
[2024-01-20] MEDS: METHYLPREDNISOLONE SOD SUCC PF 125 MG/2 ML VIAL IVP (13:37)
[2024-01-20] MEDS: 0.9 % SODIUM CHLORIDE 1,000 ML 999 ML IV (13:37)
[2024-01-20 13:38] LABS: Basophils Percent Auto 0.1 % (0.2-2.0); Hematocrit 39.6 % (36.0-48.0); Hemoglobin 13.6 g/dL (12.0-16.0); Immature Granulocytes Abs Auto 0.04 10^3/uL (0.00-0.03); Immature Granulocytes Pct Auto 0.4 % (0.0-0.5); Lymphocytes Absolute Auto 0.7 10^3/uL (1.2-3.8); Lymphocytes Percent Auto 6.8 % (20.5-60.0); Mean Corpuscular HGB Conc 34.3 g/dL (29.9-35.2); Mean Corpuscular Hemoglobin 31.3 pg (26.7-34.0); Mean Platelet Volume 10.5 fL (9.5-13.5); Monocytes Absolute Auto 0.1 10^3/uL (0.3-0.8); Monocytes Percent Auto 1.3 % (1.7-12.0); Neutrophils Absolute Auto 9.4 10^3/uL (1.4-6.5); Neutrophils Percent Auto 91.4 % (43.0-75.0); Platelet Count 313 10^3/uL (150-450); Red Blood Count 4.35 10^6/uL (4.20-5.40); Red Cell Distribution Width 12.1 % (11.0-15.0); White Blood Count 10.3 10^3/uL (4.0-11.0)
[2024-01-20 13:48] LABS: HCG Qualitative NEGATIVE (NEGATIVE)
[2024-01-20 13:50] LABS: Erythrocyte Sedimentation Rate 22 mm/hr (<=20)
[2024-01-20 13:54] LABS: Alanine Aminotransferase 15 U/L (14-59); Albumin Globulin Ratio 1.2; Albumin Level 4.1 g/dL (3.4-5.0); Alkaline Phosphatase 74 U/L (46-116); Anion Gap 17.6; Aspartate Amino Transferase 26 U/L (15-37); BUN Creatinine Ratio 6.8; Bilirubin Total 2.4 mg/dL (0.2-1.0); Calcium 9.5 mg/dL (8.5-10.1); Carbon Dioxide 24.5 mmol/L (21.0-32.0); Chloride 102 mmol/L (98-107); Estimated GFR (African America >60 (>=60); Estimated GFR (Non-African Ame >60 (>=60); Globulin 3.5 g/dL; Glucose 136 mg/dL (74-106); Potassium 4.1 mmol/L (3.5-5.1); Sodium 140 mmol/L (136-145); Total Protein 7.6 g/dL (6.4-8.2)
[2024-01-20 14:02] LABS: C Reactive Protein <0.50 mg/dL (<=0.50); Magnesium 1.7 mg/dL (1.8-2.4); Thyroid Stimulating Hormone 0.725 uIU/mL (0.358-3.740); Troponin I High Sensitivity <4.0 pg/mL (4.0-51.3)
[2024-01-20 14:17] LABS: Lactate/Lactic Acid 1.6 mmol/L (0.4-2.0)
[2024-01-20 14:58] VITALS: BP 145/59; PULSE 54; TEMP 36.6; O2SAT 98
== END 2024-01-20 15:13 | disposition home or self-care (01) ==
PROVIDERS: Physician Assistant; Emergency Provider Emergency Medicine
DX: R11.2 Nausea with vomiting, unspecified (principal); R53.1 Weakness
CPT/HCPCS: 36415; 71045; 80053; 83605; 83735; 84443; 84484; 84703; 85025; 85652; 86140; 93005; 96374; 96375; 96376; 99285; J2919